=== PATIENT | female | born 1960 | race Caucasian/White ===

== ENCOUNTER 2018-06-21 21:23 | Emergency (ER) | payer OTHER ==
--- OUTSIDE RECORDS SUMMARY | 2018-06-21 21:25 | XMS REPORT ---
:1960 [facility] Address [address] [place] [address] [address]. [address] [place] [address] Care Team Providers Name Role Phone Unavailable Unavailable Unavailable Problems This patient has no known problems. Allergies, Adverse Reactions, Alerts This patient has no known allergies or adverse reactions. Medications This patient has no known medications.
[2018-06-21 22:32] LABS: Absolute Lymphocytes (CBC) 2.9 K/uL (0.7-4.9); Absolute Monocytes 0.5 K/uL (0.1-1.3); Absolute Neutrophil 2.4 K/uL (1.8-8.0); Basophils % 0.9 % (0-1.3); Eosinophils % 4.7 % (0-4.4); Hematocrit 33.5 % (36.0-45.0); Lymphocytes % 47.9 % (15.3-44.8); MPV 8.4 fL (7.6-11.3); Monocytes % 7.6 % (3.3-12.3)
[2018-06-21 22:35] LABS: Protime INR 0.91
[2018-06-21 22:47] LABS: ALT/SGPT 18 U/L (12-78); AST/SGOT 14 U/L (15-37); Albumin 4.1 g/dL (3.4-5.0); Alkaline Phosphatase 65 U/L (45-117); BUN Blood Urea Nitrogen 16 mg/dL (7-18); Bicarbonate 25 mmol/L (21-32); Bilirubin Direct < 0.1 mg/dL (0-0.2); Bilirubin Total 0.2 mg/dL (0.2-1.0); Glucose Level 97 mg/dL (74-106); Lipase 233 U/L (73-393); Magnesium 2.2 mg/dL (1.8-2.4); NT PRO-BNP 188 pg/mL (<125); Potassium 3.4 mmol/L (3.5-5.1); Protein, Total 7.2 g/dL (6.4-8.2); Sodium Level 144 mmol/L (136-145); Troponin (Emerg Dept Use Only) < 0.02 ng/mL (0.0-0.045)
[2018-06-21] MEDS ORDERED: MORPHINE 2 MG/ML SYR ONE (23:10)
[2018-06-21] MEDS ORDERED: ONDANSETRON 4 MG/2 ML VIAL ONE (23:10)
[2018-06-21 23:51] LABS: Urine Blood TRACE (NEG); Urine Glucose NEGATIVE (NEG); Urine Protein NEGATIVE (NEG); Urine Specific Gravity 1.015 (1.005-1.030)
[2018-06-22] MEDS ORDERED: FENTANYL CITR 100 MCG/2 ML ONE (01:40)
--- NOTE | 2018-06-22 02:13 | ER ---
Nurse's Notes [facility] Name: Orly Henderson Age: 58 yrs Sex: Female : 1960 Arrival Date: 06/21/2018 Time: 21:29 Bed 28 Private MD: Joe Cummings R Diagnosis: Headache;Lower abdominal pain, unspecified Presentation: 06/21 21:45 Presenting complaint: Patient states: RLQ pain, with N/V/D since today. C/o headache ca1 with dizziness and blurring of vision since this morning. Transition of care: patient was not received from another setting of care. Onset of symptoms was June 21, 2018. Risk Assessment: Do you want to hurt yourself or someone else? Patient reports no desire to harm self or others. Initial Sepsis Screen: Does the patient meet any 2 criteria? No. Patient's initial sepsis screen is negative. Does the patient have a suspected source of infection? No. Patient's initial sepsis screen is negative. 21:45 Method Of Arrival: Wheelchair ca1 21:45 Acuity: ANDREINA 3 ca1 21:45 Care prior to arrival: None. ca1 Triage Assessment: 22:17 General: Appears in no apparent distress. unkempt, Behavior is calm, cooperative, ca1 appropriate for age. Pain: Complains of pain in abdomen. GI: Abdomen is flat, non-distended, Bowel sounds present X 4 quads. Abd is soft X 4 quads Abdomen is tender to palpation in right lower quadrant and left lower quadrant Reports diarrhea, nausea, vomiting. Historical: - Allergies: 22:17 Bioxan; ca1 22:17 Flagyl; ca1 22:17 Benadryl IV; ca1 - Home Meds: 22:17 venlafaxine 150 mg oral cp24 1 cap once daily [Active]; pantoprazole 40 mg oral TbEC 1 ca1 tab once daily [Active]; buspirone 15 mg oral tab .5 tab 2 times per day [Active]; topiramate 25 mg oral cpSP 2 caps 2 times per day [Active]; meloxicam 7.5 mg oral tab 1 tab once daily [Active]; tizanidine 4 mg oral cap 1 cap daily [Active]; rosuvastatin 5 mg oral tab 1 tab once daily [Active]; sucralfate 1 gram Oral tab 1 tab 4 times per day [Active]; alendronate 70 mg oral tab 1 tab once wkly [Active]; Vitamin D3 1,000 unit oral cap [Active]; - PMHx: 22:17 Bipolar disorder; Fibromyalgia; Osteoporosis; Mitral Prolapse; High Cholesterol; ca1 Hernia; Arthritis; Ulcers; - PSHx: 22:17 Tonsillectomy; Cholecystectomy; Hysterectomy; Appendectomy; R shoulder surgery; ca1 - Immunization history:: Flu vaccine is not up to date. - Social history:: Smoking status: Patient uses tobacco products, smokes one-half pack cigarettes per day. - Ebola Screening: : No symptoms or risks identified at this time. Screenin:20 Abuse screen: Denies threats or abuse. Denies injuries from another. Nutritional ca1 screening: No deficits noted. Tuberculosis screening: No symptoms or risk factors identified. Fall Risk None identified. Assessment: 22:20 General: Appears in no apparent distress. unkempt, Behavior is calm, cooperative, ca1 appropriate for age. Pain: Complains of pain in left lower quadrant and right lower quadrant and abdomen Pain does not radiate. Pain currently is 7 out of 10 on a pain scale. Pain began this morning. Neuro: Level of Consciousness is awake, alert, obeys commands, Oriented to person, place, time, situation, Reports blurred vision dizziness, since this morning headache. Cardiovascular: Heart tones S1 S2 present Capillary refill < 3 seconds Patient's skin is warm and dry. Respiratory: Airway is patent Respiratory effort is even, unlabored, Respiratory pattern is regular, symmetrical, Breath sounds are clear bilaterally. GI: Abdomen is flat, non-distended, Bowel sounds present X 4 quads. Abd is soft X 4 quads Abdomen is tender to palpation in left lower quadrant and right lower quadrant. : No deficits noted. No signs and/or symptoms were reported regarding the genitourinary system. EENT: No deficits noted. No signs and/or symptoms were reported regarding the EENT system. Derm: Skin is healthy with good turgor, Skin is pink, warm \T\ dry. Musculoskeletal: Circulation, motion, and sensation intact. Capillary refill < 3 seconds. 23:38 Reassessment: Pt still at CT scan. ca1 06/22 02:27 Reassessment: Patient denies pain at this time. Patient states feeling better. mg2 Vital Signs: 06/21 22:17 BP 126 / 65; Pulse 69; Resp 19; Temp 98.3; Pulse Ox 99% on R/A; Weight 73.48 kg; Height ca1 5 ft. 7 in. (170.18 cm); Pain 7/10; 04 01:00 BP 107 / 66; Pulse 64; Resp 18; Pulse Ox 98% on R/A; mg2 02:18 BP 119 / 79; Pulse 69; Resp 18; Pulse Ox 100% on R/A; Pain 0/10; mg2 04/ 22:17 Body Mass Index 25.37 (73.48 kg, 170.18 cm) ca1 ED Course: 06/21 21:29 Patient arrived in ED. es 21:30 Joe Cummings MD is Private Physician. es 21:39 Moe Bowman PA is PHCP. jmm 21:39 Kalyan Sanchez MD is Attending Physician. jmm 21:49 Gardenia Olea, FARIBA is Primary Nurse. ca1 22:05 Triage completed. ca1 22:[address] via wheelchair. nj 22:17 Arm band placed on right wrist. ca1 22:19 Initial lab(s) drawn, by me, sent to lab. Inserted saline lock: 20 gauge in left lt1 antecubital area, using aseptic technique. 22:20 No provider procedures requiring assistance completed. ca1 22:20 Patient has correct armband on for positive identification. Placed in gown. Bed in low ca1 position. Call light in reach. Side rails up X 1. monitor and storage bin tender on. Pulse ox on. NIBP on. 22:29 CT completed. Patient moved back from CT. 2 22:31 CT Head Brain wo Cont In Process Unspecified. EDMS 04 00:[address] In Process Unspecified. EDMS 00:19 CT Neck Angio In Process Unspecified. EDMS 00:20 CT Abd/Pelvis - W/Contrast In Process Unspecified. EDMS 02:13 Gilbert Garcia MD is Referral Physician. [facility] 02:28 IV discontinued, intact, bleeding controlled, No redness/swelling at site. Pressure mg2 dressing applied. Administered Medications: 06/21 22:58 Drug: Zofran 4 mg Route: IVP; Site: left antecubital; ca1 06/22 01:22 Follow up: Response: No adverse reaction; Marked relief of symptoms mg2 06/21 23:00 Drug: morphine 2 mg Route: IVP; Site: left antecubital; ca1 06/22 01:22 Follow up: Response: No adverse reaction; Marked relief of symptoms mg2 01:33 Drug: fentaNYL (PF) 25 mcg Route: IVP; Site: left antecubital; mg2 02:15 Follow up: Response: No adverse reaction; Marked relief of symptoms mg2 Outcome: 02:13 Discharge ordered by . joaquín 02:28 Discharged to home ambulatory, with family. mg2 02:28 Condition: stable 02:28 Discharge instructions given to patient, family, Instructed on discharge instructions, follow up and referral plans. Demonstrated understanding of instructions, follow-up care. 02:29 Patient left the ED. mg2 Signatures: Dispatcher [employer] EDMoe Lew PA PA jmm Salyer, Robin Duran [facility] Gio Valderrama RN RN mg2 Gardenia Olea RN RN ca1 Darby Gallegos 1
--- NOTE | 2018-06-22 02:13 | EDPHYS ---
Physician Documentation [facility] Name: Orly Henderson Age: 58 yrs Sex: Female : 1960 Arrival Date: 06/21/2018 Time: 21:29 Bed 28 Private MD: Joe Cummings R ED Physician Kalyan Sanchez HPI: 06/21 22:00 This 58 yrs old Unknown Female presents to ER via Wheelchair with complaints of jmm Dizziness, Nausea, Abdominal Pain, Headache, Flank Pain. 22:00 The patient presents with lightheadedness. Onset: The symptoms/episode began/occurred jmm gradually, at 18:00. This is a 58 year old female with a history of bipolar disorder, fibromyalgia that presents to the ED with complaints of lower abdominal and left flank pain beginning this morning. Patient states she has a history of IBS which presents similarly. Patient also complains of gradual onset headache beginning this evening at 6 pm with complaints of bilateral blurred vision. patient states she has a history of migraine headaches which she takes topamax for. Patient states symptoms are similar to previous migraines. . Historical: - Allergies: 22:17 Bioxan; ca1 22:17 Flagyl; ca1 22:17 Benadryl IV; ca1 - Home Meds: 22:17 venlafaxine 150 mg oral cp24 1 cap once daily [Active]; pantoprazole 40 mg oral TbEC 1 ca1 tab once daily [Active]; buspirone 15 mg oral tab .5 tab 2 times per day [Active]; topiramate 25 mg oral cpSP 2 caps 2 times per day [Active]; meloxicam 7.5 mg oral tab 1 tab once daily [Active]; tizanidine 4 mg oral cap 1 cap daily [Active]; rosuvastatin 5 mg oral tab 1 tab once daily [Active]; sucralfate 1 gram Oral tab 1 tab 4 times per day [Active]; alendronate 70 mg oral tab 1 tab once wkly [Active]; Vitamin D3 1,000 unit oral cap [Active]; - PMHx: 22:17 Bipolar disorder; Fibromyalgia; Osteoporosis; Mitral Prolapse; High Cholesterol; ca1 Hernia; Arthritis; Ulcers; - PSHx: 22:17 Tonsillectomy; Cholecystectomy; Hysterectomy; Appendectomy; R shoulder surgery; ca1 - Immunization history:: Flu vaccine is not up to date. - Social history:: Smoking status: Patient uses tobacco products, smokes one-half pack cigarettes per day. - Ebola Screening: : No symptoms or risks identified at this time. ROS: 22:17 Constitutional: Negative for fever, chills, and weight loss, Cardiovascular: Negative jmm for chest pain, palpitations, and edema, Respiratory: Negative for shortness of breath, cough, wheezing, and pleuritic chest pain. 22:17 Abdomen/GI: Positive for abdominal pain. 22:17 Neuro: Positive for headache, visual changes. 22:17 All other systems are negative. Exam: 22:17 Constitutional: This is a well developed, well nourished patient who is awake, alert, jmm and in no acute distress. Head/Face: atraumatic. Eyes: EOMI, no conjunctival erythema appreciated ENT: Moist Mucus Membranes Neck: Trachea midline, Supple Chest/axilla: Normal chest wall appearance and motion. Cardiovascular: Regular rate and rhythm. No edema appreciated Respiratory: Normal respirations, no respiratory distress appreciated 22:17 Back: Normal ROM Skin: General appearance color normal MS/ Extremity: Moves all extremities, no obvious deformities appreciated, no edema noted to the lower extremities 22:17 Abdomen/GI: Inspection: abdomen appears normal, Bowel sounds: normal, Palpation: soft, mild abdominal tenderness, in the right lower quadrant and left lower quadrant. 22:17 Neuro: Orientation: is normal, Mentation: is normal, Memory: is normal, Cerebellar function: normal finger to nose testing, Motor: is normal. 22:17 Psych: Behavior/mood is pleasant, cooperative, anxious. Vital Signs: 22:17 BP 126 / 65; Pulse 69; Resp 19; Temp 98.3; Pulse Ox 99% on R/A; Weight 73.48 kg; Height ca1 5 ft. 7 in. (170.18 cm); Pain 7/10; 04 01:00 BP 107 / 66; Pulse 64; Resp 18; Pulse Ox 98% on R/A; mg2 02:18 BP 119 / 79; Pulse 69; Resp 18; Pulse Ox 100% on R/A; Pain 0/10; mg2 04 22:17 Body Mass Index 25.37 (73.48 kg, 170.18 cm) ca1 MDM: 06/21 22:00 Patient medically screened. [facility] 06/22 02:11 Data reviewed: vital signs, nurses notes. Counseling: I had a detailed discussion with vale the patient and/or guardian regarding: the historical points, exam findings, and any diagnostic results supporting the discharge/admit diagnosis, radiology results, the need for outpatient follow up, to return to the emergency department if symptoms worsen or persist or if there are any questions or concerns that arise at home. ED course: Patient's symptoms are alleviated in the ED. Repeat neuro exam normal. I discussed CTA findings with Dr. Garcia whom will follow up with patient. Patient is otherwise given strict return precautions. Patient understood and agrees with the plan of care. . 06/21 22:01 Order name: Basic Metabolic Panel; Complete Time: 22:50 [facility] 06/21 22:01 Order name: CBC with Diff; Complete Time: 22:34 [facility] 06/21 22:01 Order name: LFT's; Complete Time: 22:50 [facility] 06/21 22:01 Order name: Magnesium; Complete Time: 22:50 [facility] 06/21 22:01 Order name: NT PRO-BNP; Complete Time: 22:50 [facility] 06/21 22:01 Order name: PT-INR; Complete Time: 22:50 [facility] 06/21 22:01 Order name: Troponin (emerg Dept Use Only); Complete Time: 22:50 [facility] 06/21 22:01 Order name: Lipase; Complete Time: 22:50 [facility] 06/21 22:01 Order name: CT Head Brain wo Cont [facility] 06/21 22:52 Order name: Head Angio CT [facility] 06/21 22:52 Order name: CT Neck Angio [facility] 06/21 22:52 Order name: CT Abd/Pelvis - W/Contrast [facility] 06/21 23:39 Order name: Urine Dipstick--Ancillary (enter results); Complete Time: 23:52 ok 06/21 22:01 Order name: EKG; Complete Time: 22:03 [facility] 06/21 22:01 Order name: Cardiac monitoring; Complete Time: 22:27 [facility] 06/21 22:01 Order name: EKG - Nurse/Tech; Complete Time: 22:39 [facility] 06/21 22:01 Order name: IV Saline Lock; Complete Time: 22:20 [facility] 06/21 22:01 Order name: Labs collected and sent; Complete Time: 22:20 [facility] 06/21 22:01 Order name: O2 Per Protocol; Complete Time: 22:27 [facility] 06/21 22:01 Order name: O2 Sat Monitoring; Complete Time: 22:27 [facility] Administered Medications: 06/21 22:58 Drug: Zofran 4 mg Route: IVP; Site: left antecubital; ca1 06/22 01:22 Follow up: Response: No adverse reaction; Marked relief of symptoms mg2 06/21 23:00 Drug: morphine 2 mg Route: IVP; Site: left antecubital; ca1 06/22 01:22 Follow up: Response: No adverse reaction; Marked relief of symptoms mg2 01:33 Drug: fentaNYL (PF) 25 mcg Route: IVP; Site: left antecubital; mg2 02:15 Follow up: Response: No adverse reaction; Marked relief of symptoms mg2 Disposition: 06/22/18 02:13 Discharged to Home. Impression: Headache, Lower abdominal pain, unspecified. - Condition is Stable. - Discharge Instructions: Abdominal Pain, Adult, General Headache Without Cause. - Medication Reconciliation Form, Thank You Letter, Antibiotic Education, Prescription Opioid Use form. - Follow up: Gilbert Garcia MD; When: 2 - 3 days; Reason: Recheck today's complaints, Continuance of care, Re-evaluation by your physician. Addendum: 06/23/2018 07:22 Co-signature as Attending Physician, Kalyan Sanchez MD I agree with the assessment and t w4 plan of care. Signatures: Dispatcher [employer] EDMS Moe Bowman PA PA [facility] Kalyan Sanchez MD MD tw4 Gio Valderrama RN RN mg2 Gardenia Olea RN RN ca1 Corrections: (The following items were deleted from the chart) 06/22 02:29 02:13 06/22/2018 02:13 Discharged to Home. Impression: Headache; Lower abdominal pain, mg2 unspecified. Condition is Stable. Forms are Medication Reconciliation Form, Thank You Letter, Antibiotic Education, Prescription Opioid Use. Follow up: Gilbert Garcia; When: 2 - 3 days; Reason: Recheck today's complaints, Continuance of care, Re-evaluation by your physician. [facility]
--- NOTE | 2018-06-22 11:23 | RAD REPORT ---
EXAM DESCRIPTION: CT - Neck Angio - 06/22/2018 12:17 am CLINICAL HISTORY: The patient is 58 years old and is Female; headache, blurred vision TECHNIQUE: Axial computed tomography images of the head and neck with intravenous contrast during th e arterial phase of contrast enhancement. Sagittal and coronal reformatted images were created and reviewed. This CT exam was performed using one or more of the following dose reduction techniques: automated exposure control, adjustment of the mA and/or kV according to patient size, and/or use of iterative reconstruction technique. COMPARISON: CT head without contrast of the same day. FINDINGS: Limited evaluation due to venous contamination. HEAD: ANTERIOR CEREBRAL ARTERY: Hypoplastic left A1 segment with suggested azygous A2. Right laterally o riented 2 mm outpouching of the A1 A2 junction (series 405, image 66). Additional leftward 2.2 mm outpouching at the A2 A2 junction (series 405, image 65). No occlusion or significant stenosis. RIGHT MIDDLE CEREBRAL ARTERY: Unremarkable. No occlusion or significant stenosis. No aneurysm. RIGHT POSTERIOR CEREBRAL ARTERY: Unremarkable. No occlusion or significant stenosis. No aneury sm. LEFT MIDDLE CEREBRAL ARTERY: Unremarkable. No occlusion or significant stenosis. No aneurysm. LEFT POSTERIOR CEREBRAL ARTERY: Unremarkable. No occlusion or significant stenosis. No aneurys m. BASILAR ARTERY: Unremarkable. No occlusion or significant stenosis. No aneurysm. BRAIN: Opacified dural venous sinuses are patent. NECK: RIGHT COMMON CAROTID ARTERY: Unremarkable. No significant stenosis. No dissection or occlusion . RIGHT INTERNAL CAROTID ARTERY: Unremarkable. No significant stenosis. No dissection or occlusi on. RIGHT EXTERNAL CAROTID ARTERY: Unremarkable. No occlusion. RIGHT VERTEBRAL ARTERY: Unremarkable. No significant stenosis. No dissection or occlusion. LEFT COMMON CAROTID ARTERY: Unremarkable. No significant stenosis. No dissection or occlusion. LEFT INTERNAL CAROTID ARTERY: Unremarkable. No significant stenosis. No dissection or occlusio n. LEFT EXTERNAL CAROTID ARTERY: Unremarkable. No occlusion. LEFT VERTEBRAL ARTERY: Unremarkable. No significant stenosis. No dissection or occlusion. THYROID: Visualized thyroid is within normal limits. PLEURAL SPACE: Apical pleural thickening and chronic lung changes. MEDIASTINUM: Mild thickening of the visualized esophagus. HEAD and NECK: BONES/JOINTS: No acute fracture. No dislocation. SOFT TISSUES: Cervical soft tissues demonstrate no gross abnormality. No mass. OTHER FINDINGS: Suggested peripherally calcified pineal cyst. CAROTID STENOSIS REFERENCE USING NASCET CRITERIA: % ICA stenosis = (1 - narrowest ICA diameter/diameter of distal cervical ICA) x 100. Mild - Moderate - 50-69% stenosis. Severe - 70-94% stenosis. Near occlusion - 95-99% stenosis. Occluded - 100% stenosis. IMPRESSION: Limited evaluation as detailed above. 1. No large intracranial vessel occlusion. 2. No hemodynamically significant cervical ICA stenosis. 3. 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 Electronically signed by: Jose Hurt DO 06/22/2018 12:46 AM CDT Due to temporary technical issues with the PACS/Fluency reporting system, reports are being signed by the in house radiologist as a courtesy to ensure prompt reporting. The interpreting radiologist is f ully responsible for the content of the report.
--- NOTE | 2018-06-22 11:24 | RAD REPORT ---
EXAM DESCRIPTION: CT - Abdomen Pelvis W Contrast - 06/22/2018 5:18 am CLINICAL HISTORY: The patient is 58 years old and is Female; lower abdominal pain, IV ONLY TECHNIQUE: Axial computed tomography images of the abdomen and pelvis with intravenous contrast. S agittal and coronal reformatted images were created and reviewed. This CT exam was performed using one or more of the following dose reduction techniques: automated exposure control, adjustment of t he mA and/or kV according to patient size, and/or use of iterative reconstruction technique. COMPARISON: None. FINDINGS: LUNG BASES: Unremarkable. No mass. No consolidation. ABDOMEN: LIVER: Unremarkable. No mass. GALLBLADDER AND BILE DUCTS: Prior cholecystectomy with mild intrahepatic ductal dilatation. Prominence of the common bile duct. PANCREAS: Unremarkable. No mass. No ductal dilation. SPLEEN: Unremarkable. No splenomegaly. ADRENALS: Unremarkable. No mass. KIDNEYS AND URETERS: 1.4 cm left renal cyst. No hydronephrosis. STOMACH AND BOWEL: Small bowel containing inguinal hernia. PELVIS: APPENDIX: No findings to suggest acute appendicitis. BLADDER: Bladder is decompressed. Moderate stool burden. REPRODUCTIVE: Prior hysterectomy ABDOMEN and PELVIS: INTRAPERITONEAL SPACE: Unremarkable. No free air. No significant fluid collection. BONES/JOINTS: Chronic fracture deformity of the superior endplate of T11 with associated superior endplate sclerosis and mild retropulsion of the posterior-superior corner resulting in mild canal henry nosis. Diffuse osteopenia. No dislocation. SOFT TISSUES: See above. VASCULATURE: Atherosclerotic calcifications of the abdominal aorta and iliac vasculature. No abdominal aortic aneurysm. LYMPH NODES: Unremarkable. No enlarged lymph nodes. IMPRESSION: 1. No acute abdominal or pelvic abnormality. 2. Chronic fracture deformity of the superior endplate of T11 with associated superior endplate scl erosis and mild retropulsion of the posterior-superior corner resulting in mild canal stenosis. 3. Small bowel containing inguinal hernia. No obstruction. 4. Diffuse osteopenia. 5. Prior cholecystectomy with intra and extrahepatic ductal dilatation. 6. 1.7 cm left renal cyst. Electronically signed by: Jose Hurt DO 06/22/2018 12:36 AM CDT Due to temporary technical issues with the PACS/Fluency reporting system, reports are being signed by the in house radiologist as a courtesy to ensure prompt reporting. The interpreting radiologist is f ully responsible for the content of the report.
--- NOTE | 2018-06-22 11:48 | RAD REPORT ---
EXAM DESCRIPTION: CT - Head Brain Wo Cont - 06/21/2018 10:47 pm CLINICAL HISTORY: 58 years Female DIZZINESS TECHNIQUE: Contiguous axial CT images obtained through the brain without IV contrast. This CT exam was performed according to our departmental dose-optimization program, which includes on e or more of the following dose reduction techniques: automated exposure control, adjustment of the m A and/or kV according to patient size, and/or use of iterative reconstruction technique. COMPARISON: No prior exams provided for comparison. FINDINGS: There is no intracranial hemorrhage, extraaxial collection, or acute transcortical infarct ion. The ventricles are normal in size and contour without mass-effect or midline shift. Osseous structure s are normal. The paranasal sinuses and mastoid air cells are clear. IMPRESSION: No acute intracranial abnormalities. Electronically signed by: Sharmin Buck MD 06/21/2018 10:36 PM CDT Due to temporary technical issues with the PACS/Fluency reporting system, reports are being signed by the in house radiologist as a courtesy to ensure prompt reporting. The interpreting radiologist is f ully responsible for the content of the report.
== END 2018-06-22 02:29 | disposition home or self-care (01) ==
LOC: ER 21:23
DX: R10.30 Lower abdominal pain, unspecified (principal); F17.210 Nicotine dependence, cigarettes, uncomplicated; F31.9 Bipolar disorder, unspecified; E78.00 Pure hypercholesterolemia, unspecified; Z88.8 Allergy status to other drugs, medicaments and biological substances
CPT/HCPCS: 93005; 85025; 80048; 36415; 83735; 85610; 80076; 81003; 84484; 83690; 83880; 70450; 70496; 70498; 74177; 96375; 96374; 99285; Q9967 ×2; J3010; J2270; J2405

== ENCOUNTER 2018-06-29 03:09 | Emergency (ER) | payer OTHER ==
--- OUTSIDE RECORDS SUMMARY | 2018-06-29 03:11 | XMS REPORT ---
:1960 [facility] Address [address] [place] [address] [address]. [address] [place] [address] Care Team Providers Name Role Phone Unavailable Unavailable Unavailable Problems This patient has no known problems. Allergies, Adverse Reactions, Alerts This patient has no known allergies or adverse reactions. Medications This patient has no known medications.
[2018-06-29] MEDS ORDERED: HYDROCODONE/APAP 5/325 MG TAB ONE (04:58)
--- NOTE | 2018-06-29 05:45 | ER ---
Nurse's Notes [facility] Name: Orly Henderson Age: 58 yrs Sex: Female : 1960 Arrival Date: 06/29/2018 Time: 03:10 Bed 5 Private MD: Joe Cummings R Diagnosis: Cerebral aneurysm, nonruptured;Headache Presentation: 06/29 03:23 Presenting complaint: Patient states: pressure behind her eyes, light sensitivity, ak1 dizziness, pain "all the time" since 06/21/18 when her brain aneurysm was found. Transition of care: patient was not received from another setting of care. Onset of symptoms was June 21, 2018. Risk Assessment: Do you want to hurt yourself or someone else? Patient reports no desire to harm self or others. Care prior to arrival: None. 03:23 Acuity: ANDREINA 3 ak1 03:23 Method Of Arrival: Wheelchair ak1 04:01 Initial Sepsis Screen: Does the patient meet any 2 criteria? No. Patient's initial ea sepsis screen is negative. Does the patient have a suspected source of infection? No. Patient's initial sepsis screen is negative. Triage Assessment: 03:28 Headache History: The patient has had previous headaches and this one is similar to ak1 previous episodes. General: Appears in no apparent distress. Behavior is cooperative, anxious, crying. Pain: Complains of pain in headache. Pain: Pain currently is 10 out of 10 on a pain scale. Pain began since 06/21/18 Also complains of photophobia. EENT: No signs and/or symptoms were reported regarding the EENT system. Neuro: Level of Consciousness is awake, alert, obeys commands, Oriented to person, place, time, situation, Appropriate for age [employer] Compliance Manager are equal bilaterally Moves all extremities. Gait is shuffling, pt c/o dizziness. Speech is normal, Facial symmetry appears normal. Historical: - Allergies: 03:28 Benadryl IV; ak1 03:28 Bioxan; ak1 03:28 Flagyl; ak1 - Home Meds: 03:28 venlafaxine 150 mg Oral cp24 1 cap once daily [Active]; pantoprazole 40 mg Oral TbEC 1 ak1 tab once daily [Active]; buspirone 15 mg Oral tab 0.5 tab 2 times per day [Active]; topiramate 25 mg Oral cpSP 2 caps 2 times per day [Active]; meloxicam 7.5 mg Oral tab 1 tab once daily [Active]; tizanidine 4 mg Oral cap 1 cap daily [Active]; rosuvastatin 5 mg Oral tab 1 tab once daily [Active]; sucralfate 1 gram Oral tab 1 tab 4 times per day [Active]; alendronate 70 mg Oral tab 1 tab once wkly [Active]; Vitamin D3 1,000 unit Oral cap [Active]; - PMHx: 03:28 Arthritis; Bipolar disorder; Fibromyalgia; Hernia; High Cholesterol; Mitral Prolapse; ak1 Osteoporosis; Ulcers; - PSHx: 03:28 L shoulder surgery; R shoulder surgery; Tonsillectomy; Cholecystectomy; Hysterectomy; ak1 - Immunization history:: Adult Immunizations unknown. - Social history:: Smoking status: Patient uses tobacco products, smokes one-half pack cigarettes per day. - Ebola Screening: : No symptoms or risks identified at this time. Screenin:31 Abuse screen: Denies threats or abuse. Denies injuries from another. Nutritional ak1 screening: No deficits noted. Tuberculosis screening: No symptoms or risk factors identified. Fall Risk None identified. Assessment: 03:50 General: Behavior is calm. Pain: Complains of pain in occipital area, base of the skull ea and neck Pain currently is 10 out of 10 on a pain scale. Quality of pain is described as shooting. Neuro: Level of Consciousness is awake, alert, obeys commands, Oriented to person, place, time, situation, Reports light sensitivity. Cardiovascular: Patient's skin is warm and dry. Respiratory: Airway is patent Respiratory effort is even, unlabored, Respiratory pattern is regular, symmetrical. GI: Abdomen is non-distended. Derm: Skin is pink, warm \\T\\ dry. Musculoskeletal: Circulation, motion, and sensation intact. 04:41 Reassessment: Patient and/or family updated on plan of care and expected duration. Pain ea level reassessed. Patient is alert, oriented x 3, equal unlabored respirations, skin warm/dry/pink. Pt taken to CT. 04:47 Reassessment: Patient is alert, oriented x 3, equal unlabored respirations, skin ea warm/dry/pink. Returned from CT. Pt complaining of headache, provider notified, medication administered, pt tolerated well. 05:00 Reassessment: Patient and/or family updated on plan of care and expected duration. Pain ea level reassessed. Patient is alert, oriented x 3, equal unlabored respirations, skin warm/dry/pink. Awaiting on CT results. 06:00 Reassessment: Patient and/or family updated on plan of care and expected duration. Pain ea level reassessed. Patient is alert, oriented x 3, equal unlabored respirations, skin warm/dry/pink. 06:20 Reassessment: Report called to Debbie LINK at [facility]. ea 06:44 Reassessment: Patient and/or family updated on plan of care and expected duration. Pain ea level reassessed. Patient is alert, oriented x 3, equal unlabored respirations, skin warm/dry/pink. Report given to [facility], Pt transferred to [place] via stretcher, per EMS. Pt tolerating well. Vital Signs: 03:23 BP 149 / 95; Pulse 81; Resp 16; Temp 98.2; Pulse Ox 100% on R/A; Weight 73.03 kg (R); ak1 Height 5 ft. 7 in. (170.18 cm) (R); Pain 10/10; 04:50 BP 120 / 82; Pulse 65; Resp 18; Pulse Ox 100% ; ea 05:30 BP 130 / 88; Pulse 67; Resp 18; Pulse Ox 99% ; ea 06:13 BP 135 / 75; Pulse 68; Resp 18; Pulse Ox 99% on R/A; ea 06:48 BP 132 / 79; Pulse 70; Resp 18; Temp 97.8(TE); Pulse Ox 98% on R/A; ea 03:23 Body Mass Index 25.22 (73.03 kg, 170.18 cm) ak1 ED Course: 03:10 Patient arrived in ED. am2 03:10 Joe Cummings MD is Private Physician. am2 03:25 Triage completed. ak1 03:25 Warren Moss MD is Attending Physician. gs 03:28 Arm band placed on Patient placed in an exam room, on a stretcher, Patient notified of ak1 wait time. 03:30 Patient has correct armband on for positive identification. Bed in low position. Call ak1 light in reach. Side rails up X 1. Side rails up X2. Adult w/ patient. Pulse ox on. NIBP on. 03:49 Myra Cruz, RN is Primary Nurse. ea 04:54 CT Head Brain wo Cont In Process Unspecified. EDMS 06:12 Inserted saline lock: 22 gauge in right antecubital area, using aseptic technique. ea 06:29 No provider procedures requiring assistance completed. Patient transferred, IV remains ea in place. Administered Medications: 04:45 Drug: Shandaken 5 mg-325 mg 1 tabs Route: PO; ea 06:00 Follow up: Response: No adverse reaction; Pain is decreased ea 06:11 Drug: Zofran 4 mg Route: IVP; Site: right antecubital; ea 06:49 Follow up: Response: No adverse reaction; Nausea is decreased ea Outcome: 05:45 ER care complete, transfer ordered by . gs 06:00 Instructed on the need for transfer, Demonstrated understanding of instructions. ea 06:43 Transferred by ground EMS to [facility], Transfer form completed. ea 06:43 Condition: stable 06:50 Patient left the ED. ea Signatures: Dispatcher [employer] EDMS Davida Winters RN RN Leonor Benítez am2 Myra Cruz RN RN ea Starr, Gregory, MD MD Corrections: (The following items were deleted from the chart) 06:12 06:12 Inserted saline lock: 20 gauge in right antecubital area, using aseptic ea technique. ea
--- NOTE | 2018-06-29 05:45 | EDPHYS ---
Physician Documentation [facility] Name: Orly Henderson Age: 58 yrs Sex: Female : 1960 Arrival Date: 06/29/2018 Time: 03:10 Bed 5 Private MD: Joe Cummings R ED Physician Warren Moss HPI: 06/29 05:33 This 58 yrs old Unknown Female presents to ER via Wheelchair with complaints of gs Headache, light sensitivity, Dizziness. 05:33 The patient describes the headache as throbbing. Onset: The symptoms/episode gs began/occurred gradually. Associated signs and symptoms: Pertinent positives: nausea. Severity of symptoms: At its worst the pain was severe, in the emergency department the pain is unchanged. The patient has experienced similar episodes in the past. 05:42 Associated signs and symptoms: Pertinent positives: dizziness. The symptoms are gs alleviated by nothing. the symptoms are aggravated by nothing. The patient has been recently seen at the [facility] Emergency Department, last week. Historical: - Allergies: 03:28 Benadryl IV; ak1 03:28 Bioxan; ak1 03:28 Flagyl; ak1 - Home Meds: 03:28 venlafaxine 150 mg Oral cp24 1 cap once daily [Active]; pantoprazole 40 mg Oral TbEC 1 ak1 tab once daily [Active]; buspirone 15 mg Oral tab 0.5 tab 2 times per day [Active]; topiramate 25 mg Oral cpSP 2 caps 2 times per day [Active]; meloxicam 7.5 mg Oral tab 1 tab once daily [Active]; tizanidine 4 mg Oral cap 1 cap daily [Active]; rosuvastatin 5 mg Oral tab 1 tab once daily [Active]; sucralfate 1 gram Oral tab 1 tab 4 times per day [Active]; alendronate 70 mg Oral tab 1 tab once wkly [Active]; Vitamin D3 1,000 unit Oral cap [Active]; - PMHx: 03:28 Arthritis; Bipolar disorder; Fibromyalgia; Hernia; High Cholesterol; Mitral Prolapse; ak1 Osteoporosis; Ulcers; - PSHx: 03:28 L shoulder surgery; R shoulder surgery; Tonsillectomy; Cholecystectomy; Hysterectomy; ak1 - Immunization history:: Adult Immunizations unknown. - Social history:: Smoking status: Patient uses tobacco products, smokes one-half pack cigarettes per day. - Ebola Screening: : No symptoms or risks identified at this time. ROS: 05:42 All other systems are negative. gs Exam: 05:42 Head/Face: Normocephalic, atraumatic. Eyes: Pupils equal round and reactive to light, gs extra-ocular motions intact. Lids and lashes normal. Conjunctiva and sclera are non-icteric and not injected. Cornea within normal limits. Periorbital areas with no swelling, redness, or edema. ENT: Nares patent. No nasal discharge, no septal abnormalities noted. Tympanic membranes are normal and external auditory canals are clear. Oropharynx with no redness, swelling, or masses, exudates, or evidence of obstruction, uvula midline. Mucous membranes moist. Neck: Trachea midline, no thyromegaly or masses palpated, and no cervical lymphadenopathy. Supple, full range of motion without nuchal rigidity, or vertebral point tenderness. No Meningismus. Chest/axilla: Normal chest wall appearance and motion. Nontender with no deformity. No lesions are appreciated. Cardiovascular: Regular rate and rhythm with a normal S1 and S2. No gallops, murmurs, or rubs. Normal PMI, no JVD. No pulse deficits. Respiratory: Lungs have equal breath sounds bilaterally, clear to auscultation and percussion. No rales, rhonchi or wheezes noted. No increased work of breathing, no retractions or nasal flaring. Abdomen/GI: Soft, non-tender, with normal bowel sounds. No distension or tympany. No guarding or rebound. No evidence of tenderness throughout. Back: No spinal tenderness. No costovertebral tenderness. Full range of motion. Skin: Warm, dry with normal turgor. Normal color with no rashes, no lesions, and no evidence of cellulitis. MS/ Extremity: Pulses equal, no cyanosis. Neurovascular intact. Full, normal range of motion. Neuro: Awake and alert, GCS 15, oriented to person, place, time, and situation. Cranial nerves II-XII grossly intact. Motor strength 5/5 in all extremities. Sensory grossly intact. Cerebellar exam normal. Normal gait. 05:42 Constitutional: The patient appears alert, awake. 05:42 Constitutional: The patient appears uncomfortable. Vital Signs: 03:23 BP 149 / 95; Pulse 81; Resp 16; Temp 98.2; Pulse Ox 100% on R/A; Weight 73.03 kg (R); ak1 Height 5 ft. 7 in. (170.18 cm) (R); Pain 10/10; 04:50 BP 120 / 82; Pulse 65; Resp 18; Pulse Ox 100% ; ea 05:30 BP 130 / 88; Pulse 67; Resp 18; Pulse Ox 99% ; ea 06:13 BP 135 / 75; Pulse 68; Resp 18; Pulse Ox 99% on R/A; ea 06:48 BP 132 / 79; Pulse 70; Resp 18; Temp 97.8(TE); Pulse Ox 98% on R/A; ea 03:23 Body Mass Index 25.22 (73.03 kg, 170.18 cm) ak1 MDM: 03:35 Patient medically screened. gs 05:42 Differential diagnosis: subarachnoid bleed, tension headache, vasomotor headache. Data gs reviewed: vital signs, nurses notes. Response to treatment: the patient's symptoms have mildly improved after treatment, and as a result, I will xfer. 06/29 03:36 Order name: CT Head Brain wo Cont gs 06/29 05:46 Order name: IV Saline Lock; Complete Time: 06:10 Administered Medications: 04:45 Drug: Dunbar 5 mg-325 mg 1 tabs Route: PO; ea 06:00 Follow up: Response: No adverse reaction; Pain is decreased ea 06:11 Drug: Zofran 4 mg Route: IVP; Site: right antecubital; ea 06:49 Follow up: Response: No adverse reaction; Nausea is decreased ea Disposition: 06/29/18 05:45 Transfer ordered to [facility]. Diagnosis are Cerebral aneurysm, nonruptured, Headache. - Reason for transfer: Higher level of care. - Accepting physician is sangeeta. - Condition is Stable. - Problem is new. - Symptoms have improved. Signatures: Dispatcher [employer] EDDavida Patten RN RN ak1 Myra Cruz RN RN ea Starr, Gregory, MD MD Corrections: (The following items were deleted from the chart) 06:50 05:45 06/29/2018 05:45 Transfer ordered to [facility]. ea Diagnosis is Cerebral aneurysm, nonruptured; Headache. Reason for transfer: Higher level of care. Accepting physician is sangeeta. Condition is Stable. Problem is new. Symptoms have improved. gs
[2018-06-29] MEDS ORDERED: ONDANSETRON 4 MG/2 ML VIAL ONE (06:13)
--- NOTE | 2018-06-29 12:20 | RAD REPORT ---
EXAM DESCRIPTION: Head Brain Wo Cont CLINICAL HISTORY: PAIN COMPARISON: June 21, 2018. TECHNIQUE: CT HEAD WITHOUT IV CONTRAST on 06/29/2018 3:36 AM CDT This exam was performed according to our departmental dose-optimization program, which includes autom ated exposure control, adjustment of the mA and/or kV according to patient size and/or use of iterati ve reconstruction technique. FINDINGS: There is no acute hemorrhage, mass effect or midline shift. Tapia-white differentiation is preserved. There is no hydrocephalus. There is mild bifrontal cerebral atrophy. The calvarium is intact. Orbits and globes are unremarkable. The paranasal sinuses are clear. Mastoid air cells are clear. IMPRESSION: No acute intracranial findings. Electronically signed by: Fahad Zamarripa MD 06/29/2018 5:00 AM CDT Due to temporary technical issues with the PACS/Fluency reporting system, reports are being signed by the in house radiologist as a courtesy to ensure prompt reporting. The interpreting radiologist is f ully responsible for the content of the report.
== END 2018-06-29 06:50 | disposition short-term general hospital (02) ==
LOC: ER 03:09
DX: I67.1 Cerebral aneurysm, nonruptured (principal); R51 Headache; R42 Dizziness and giddiness; Z88.1 Allergy status to other antibiotic agents; F17.210 Nicotine dependence, cigarettes, uncomplicated; F31.9 Bipolar disorder, unspecified; E78.00 Pure hypercholesterolemia, unspecified; M79.7 Fibromyalgia
CPT/HCPCS: 70450; 96374; 99285; J2405

== ENCOUNTER 2019-01-21 01:04 | Emergency (ER) | payer OTHER ==
--- NOTE | 2019-01-21 01:30 | EDPHYS ---
Physician Documentation [facility] Name: Orly Henderson Age: 58 yrs Sex: Female : 1960 Arrival Date: 01/21/2019 Time: 01:07 Bed 14 Private MD: Joe Cummings R ED Physician Dariel Carson HPI: 01/21 01:34 This 58 yrs old Unknown Female presents to ER via Ambulatory with complaints of Arm snw swelling to elbow from flu shot. 01:34 Onset: The symptoms/episode began/occurred suddenly. Associated signs and symptoms: snw Pertinent positives: The patient does not have any pertinent positive signs or symptoms associated with pediatric illness. Modifying factors: The patient symptoms are alleviated by nothing, the patient symptoms are aggravated by movement, stimulation. The patient has not experienced similar symptoms in the past. The patient has been recently seen by a physician: the patient's primary care provider, earlier today. rec'd pneumonia shot in left delt/tricep area, flu shot in right delt/tricep area. 01:36 area to right upper extremity edematous, warm, tender. snw Historical: - Allergies: 01:13 Benadryl IV; jd3 01:13 Bioxan; jd3 01:13 Flagyl; jd3 - Home Meds: 01:13 tizanidine 4 mg Oral cap 1 cap daily [Active]; meloxicam 7.5 mg Oral tab 1 tab once jd3 daily [Active]; rosuvastatin 5 mg Oral tab 1 tab once daily [Active]; alendronate 70 mg Oral tab 1 tab once wkly [Active]; buspirone 15 mg Oral tab 0.5 tab 2 times per day [Active]; pantoprazole 40 mg Oral TbEC 1 tab once daily [Active]; venlafaxine 150 mg Oral cp24 1 cap once daily [Active]; sucralfate 1 gram Oral tab 1 tab 4 times per day [Active]; topiramate 25 mg Oral cpSP 2 caps 2 times per day [Active]; Vitamin D3 1,000 unit Oral cap [Active]; - PMHx: 01:13 Fibromyalgia; Osteoporosis; Mitral Prolapse; High Cholesterol; Hernia; Ulcers; Bipolar jd3 disorder; Arthritis; - PSHx: 01:13 R shoulder surgery; Tonsillectomy; L shoulder surgery; Cholecystectomy; Hysterectomy; jd3 - Immunization history:: Adult Immunizations up to date, Flu vaccine is up to date. - Social history:: Smoking status: Patient uses tobacco products, smokes one-half pack cigarettes per day. - Ebola Screening: : Patient negative for fever greater than or equal to 101.5 degrees Fahrenheit, and additional compatible Ebola Virus Disease symptoms. ROS: 01:34 Constitutional: Negative for fever, chills, and weight loss, Eyes: Negative for injury, snw pain, redness, and discharge, ENT: Negative for injury, pain, and discharge, Neck: Negative for injury, pain, and swelling, Cardiovascular: Negative for chest pain, palpitations, and edema, Respiratory: Negative for shortness of breath, cough, wheezing, and pleuritic chest pain, Abdomen/GI: Negative for abdominal pain, nausea, vomiting, diarrhea, and constipation, Back: Negative for injury and pain, : Negative for injury, bleeding, discharge, and swelling, Skin: Negative for injury, rash, and discoloration, Neuro: Negative for headache, weakness, numbness, tingling, and seizure. 01:34 MS/extremity: Positive for injury or acute deformity, pain, swelling, of the right tricep. Exam: 01:33 Constitutional: This is a well developed, well nourished patient who is awake, alert, snw and in no acute distress. Head/Face: Normocephalic, atraumatic. Eyes: Pupils equal round and reactive to light, extra-ocular motions intact. Lids and lashes normal. Conjunctiva and sclera are non-icteric and not injected. Cornea within normal limits. Periorbital areas with no swelling, redness, or edema. ENT: Nares patent. No nasal discharge, no septal abnormalities noted. Tympanic membranes are normal and external auditory canals are clear. Oropharynx with no redness, swelling, or masses, exudates, or evidence of obstruction, uvula midline. Mucous membranes moist. Neck: Trachea midline, no thyromegaly or masses palpated, and no cervical lymphadenopathy. Supple, full range of motion without nuchal rigidity, or vertebral point tenderness. No Meningismus. Chest/axilla: Normal chest wall appearance and motion. Nontender with no deformity. No lesions are appreciated. Cardiovascular: Regular rate and rhythm with a normal S1 and S2. No gallops, murmurs, or rubs. Normal PMI, no JVD. No pulse deficits. Respiratory: Lungs have equal breath sounds bilaterally, clear to auscultation and percussion. No rales, rhonchi or wheezes noted. No increased work of breathing, no retractions or nasal flaring. Abdomen/GI: Soft, non-tender, with normal bowel sounds. No distension or tympany. No guarding or rebound. No evidence of tenderness throughout. Back: No spinal tenderness. No costovertebral tenderness. Full range of motion. Skin: Warm, dry with normal turgor. Normal color with no rashes, no lesions, and no evidence of cellulitis. Neuro: Awake and alert, GCS 15, oriented to person, place, time, and situation. Cranial nerves II-XII grossly intact. Motor strength 5/5 in all extremities. Sensory grossly intact. Cerebellar exam normal. Normal gait. Psych: Awake, alert, with orientation to person, place and time. Behavior, mood, and affect are within normal limits. 01:33 Musculoskeletal/extremity: Extremities: grossly normal except: noted in the right tricep: erythema, swelling, tenderness. Vital Signs: 01:13 BP 106 / 65; Pulse 81; Resp 17 S; Temp 97.3(TE); Pulse Ox 97% on R/A; Weight 71.21 kg jd3 (R); Height 5 ft. 7 in. (170.18 cm) (R); Pain 10/10; 01:13 Body Mass Index 24.59 (71.21 kg, 170.18 cm) jd3 MDM: 01:23 Patient medically screened. snw 01:32 Data reviewed: vital signs, nurses notes. Data interpreted: Pulse oximetry: on room air snw is 97 %. Interpretation: normal. Counseling: I had a detailed discussion with the patient and/or guardian regarding: the historical points, exam findings, and any diagnostic results supporting the discharge/admit diagnosis, the need for outpatient follow up, for definitive care, to return to the emergency department if symptoms worsen or persist or if there are any questions or concerns that arise at home. Special discussion: Based on the history and exam findings, there is no indication for further emergent testing or inpatient evaluation. I discussed with the patient/guardian the need to see the primary care provider for further evaluation of the symptoms. 01/21 01:29 Order name: Ice pack; Complete Time: 01:39 snw Administered Medications: 01:40 Drug: Benadryl 50 mg Route: PO; jb4 01:40 Follow up: Response: Medication administered at discharge. jb4 01:40 Drug: [place] 5 mg-325 mg 1 tabs Route: PO; jb4 01:40 Follow up: Response: Medication administered at discharge.; RASS: Alert and Calm (0) jb4 Disposition: 08:58 Co-signature as Attending Physician, Dariel Carson MD I agree with the assessment and bill plan of care. Disposition: 01/21/19 01:30 Discharged to Home. Impression: Adverse effect of antiviral drugs - IM injection. - Condition is Stable. - Discharge Instructions: Post-Injection Inflammatory Reaction, Cryotherapy. - Prescriptions for Benadryl 25 mg Oral Capsule - take 1 capsule by ORAL route every 6 hours As needed; 30 tablet. - Medication Reconciliation Form, Thank You Letter, Antibiotic Education, Prescription Opioid Use form. - Follow up: Joe uCmmings MD; When: 1 - 2 days; Reason: Recheck today's complaints, Continuance of care, Re-evaluation by your physician. Follow up: Emergency Department; When: As needed; Reason: Worsening of condition. Signatures: Dariel Carson MD MD cha Therrien, Shelly, LEAD PONY RIDER-C LEAD PONY RIDER-Csnw Joe Andersen RN RN jb4 Maged Guerrier RN RN jd3 Corrections: (The following items were deleted from the chart) 01:41 01:30 01/21/2019 01:30 Discharged to Home. Impression: Adverse effect of antiviral jb4 drugs - IM injection. Condition is Stable. Forms are Medication Reconciliation Form, Thank You Letter, Antibiotic Education, Prescription Opioid Use. Follow up: Joe Cummings; When: 1 - 2 days; Reason: Recheck today's complaints, Continuance of care, Re-evaluation by your physician. Follow up: Emergency Department; When: As needed; Reason: Worsening of condition. snw
--- NOTE | 2019-01-21 01:30 | ER ---
Nurse's Notes [facility] Name: Orly Henderson Age: 58 yrs Sex: Female : 1960 Arrival Date: 01/21/2019 Time: 01:07 Bed 14 Private MD: Joe Cummings R Diagnosis: Adverse effect of antiviral drugs-IM injection Presentation: 01/21 01:10 Presenting complaint: Patient states: "I got my flu shot this morning and now my entire jd3 right arm is swollen and it hurts form elbow to shoulder.". Transition of care: patient was not received from another setting of care. Onset of symptoms was January 21, 2019. Risk Assessment: Do you want to hurt yourself or someone else? Patient reports no desire to harm self or others. Initial Sepsis Screen: Does the patient meet any 2 criteria? No. Patient's initial sepsis screen is negative. Does the patient have a suspected source of infection? No. Patient's initial sepsis screen is negative. Care prior to arrival: None. 01:10 Method Of Arrival: Ambulatory jd3 01:10 Acuity: ANDREINA 3 jd3 Historical: - Allergies: 01:13 Benadryl IV; jd3 01:13 Bioxan; jd3 01:13 Flagyl; jd3 - Home Meds: 01:13 tizanidine 4 mg Oral cap 1 cap daily [Active]; meloxicam 7.5 mg Oral tab 1 tab once jd3 daily [Active]; rosuvastatin 5 mg Oral tab 1 tab once daily [Active]; alendronate 70 mg Oral tab 1 tab once wkly [Active]; buspirone 15 mg Oral tab 0.5 tab 2 times per day [Active]; pantoprazole 40 mg Oral TbEC 1 tab once daily [Active]; venlafaxine 150 mg Oral cp24 1 cap once daily [Active]; sucralfate 1 gram Oral tab 1 tab 4 times per day [Active]; topiramate 25 mg Oral cpSP 2 caps 2 times per day [Active]; Vitamin D3 1,000 unit Oral cap [Active]; - PMHx: 01:13 Fibromyalgia; Osteoporosis; Mitral Prolapse; High Cholesterol; Hernia; Ulcers; Bipolar jd3 disorder; Arthritis; - PSHx: 01:13 R shoulder surgery; Tonsillectomy; L shoulder surgery; Cholecystectomy; Hysterectomy; jd3 - Immunization history:: Adult Immunizations up to date, Flu vaccine is up to date. - Social history:: Smoking status: Patient uses tobacco products, smokes one-half pack cigarettes per day. - Ebola Screening: : Patient negative for fever greater than or equal to 101.5 degrees Fahrenheit, and additional compatible Ebola Virus Disease symptoms. Screenin:20 Abuse screen: Denies threats or abuse. Nutritional screening: No deficits noted. jb4 Tuberculosis screening: No symptoms or risk factors identified. Fall Risk None identified. Assessment: 01:15 General: Appears in no apparent distress. uncomfortable, Behavior is calm, cooperative, jb4 appropriate for age. Pain: Complains of pain in right bicep and right tricep Pain radiates to right hand Pain currently is 10 out of 10 on a pain scale. Quality of pain is described as stabbing, Is continuous. Neuro: Level of Consciousness is awake, alert, obeys commands, Oriented to person, place, time, situation. Cardiovascular: Patient's skin is warm and dry. Respiratory: Airway is patent Respiratory effort is even, unlabored, Respiratory pattern is regular, symmetrical. GI: No deficits noted. No signs and/or symptoms were reported involving the gastrointestinal system. : No deficits noted. No signs and/or symptoms were reported regarding the genitourinary system. EENT: No deficits noted. No signs and/or symptoms were reported regarding the EENT system. Derm: Skin is intact, Skin is pink, warm \\T\\ dry. Musculoskeletal: Circulation, motion, and sensation intact. Range of motion: intact in all extremities. Vital Signs: 01:13 BP 106 / 65; Pulse 81; Resp 17 S; Temp 97.3(TE); Pulse Ox 97% on R/A; Weight 71.21 kg jd3 (R); Height 5 ft. 7 in. (170.18 cm) (R); Pain 10/10; 01:13 Body Mass Index 24.59 (71.21 kg, 170.18 cm) jd3 ED Course: 01:07 Patient arrived in ED. es 01:08 Joe Cummings MD is Private Physician. es 01:11 Triage completed. jd3 01:13 Arm band placed on. jd3 01:20 Patient has correct armband on for positive identification. Bed in low position. Call jb4 light in reach. Side rails up X 1. 01:23 Deedee Regan [facility]-C [facility]. snw 01:23 Dariel Carson MD is Attending Physician. snw 01:27 Joe Andersen, RN is Primary Nurse. jb4 01:29 Joe Cummings MD is Referral Physician. snw 01:41 No provider procedures requiring assistance completed. Patient did not have IV access jb4 during this emergency room visit. Administered Medications: 01:40 Drug: Benadryl 50 mg Route: PO; jb4 01:40 Follow up: Response: Medication administered at discharge. jb4 01:40 Drug: [place] 5 mg-325 mg 1 tabs Route: PO; jb4 01:40 Follow up: Response: Medication administered at discharge.; RASS: Alert and Calm (0) jb4 Outcome: 01:30 Discharge ordered by . snw 01:41 Discharged to home ambulatory, with family. jb4 01:41 Condition: stable 01:41 Discharge instructions given to patient, family, Instructed on discharge instructions, follow up and referral plans. medication usage, Demonstrated understanding of instructions, follow-up care, medications, Prescriptions given X 1. 01:41 Patient left the ED. jb4 Signatures: Deedee Regan FNP-C [employer] [facility] Eileen Myers James, RN RN jb4 Maged Guerrier RN RN jd3
[2019-01-21] MEDS ORDERED: DIPHENHYDRAMINE 25 MG TAB/CAP ONE (01:36)
[2019-01-21] MEDS ORDERED: HYDROCODONE/APAP 5/325 MG TAB ONE (01:37)
[2019-01-21 01:48] VITALS: BP 106/65; TEMP 97.3; O2SAT 97
== END 2019-01-21 01:41 | disposition home or self-care (01) ==
LOC: ER 01:04
DX: T88.1XXA Other complications following immunization, not elsewhere classified, initial encounter (principal); T50.B95A Adverse effect of other viral vaccines, initial encounter; Y92.9 Unspecified place or not applicable; Z88.8 Allergy status to other drugs, medicaments and biological substances; M79.7 Fibromyalgia; E78.00 Pure hypercholesterolemia, unspecified; F17.210 Nicotine dependence, cigarettes, uncomplicated
CPT/HCPCS: 99283

== ENCOUNTER 2019-02-08 19:13 | Emergency (ER) | payer OTHER ==
--- OUTSIDE RECORDS SUMMARY | 2019-02-08 19:16 | XMS REPORT ---
:1960 [facility] [address] [place] [address] Care Team Providers Name Role Phone Unavailable Unavailable Unavailable Payers Payer Name Policy Type Policy Number Effective Date Expiration Date Problems This patient has no known problems. Allergies, Adverse Reactions, Alerts Allergy Name Allergy Status Severity Reaction(s) Onset Inactive Treating Comments Type Date Date Clinician metronidazole DA Active U 416 00:00: 00 diphenhydramine DA Active U 0 16 00:00: 00 clarithromycin DA Active SV 16 00:00: 00 Medications This patient has no known medications. Encounters Start End Encounter Admission Attending Care Care Encounter Date/Time Date/Time Type Type Clinicians Facility Department ID 2018-06-29 2018-06-29 Emergency E [facility] 7500 08:15:00 08:15:00 Results Test Description Test Time Test Comments Text Results Atomic Results Result Comments - SP VERT ANGIO UNILAT 2018-07-21 15:41:00 Name: SORAYA SHETTY [facility] : 1960 Age/S: 58 / F [address] Unit #: [id number] Loc: [place] [address] Phys: Lenin Akhtar MD Acct: [id number] Dis Date: Status: [facility] PHONE #: [phone] Exam Date: 07/14/2018 1208 FAX #: [phone] Reason: EXAMS: CPT CODE: [id number] SP VERT ANGIO UNILAT 34586 Fluoro Time: DAP (Gy m2): Air Kerma (mGy): EXAM: Angiography of the cervical thoracic arch and selective angiography of both common and internal carotid arteries and both vertebral arteries including magnification and rotational angiography; ultrasound-guided vascular access; Conscious sedation; INFORMATION: HISTORY of headaches; 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 The patient's heart rate, blood pressure and pulse oximetry were continuously monitored by a trained registered nurse. Informed consent was obtained after explaining benefits and risks of procedure including risks of thromboembolic complications and the patient was placed supine on the angiography table. Her right groin was prepped and draped in the usual sterile fashion. Xylocaine was administered and using sonographic guidance the right common femoral artery was accessed with a micropuncture system, followed by insertion of an 035 guidewire. Sonographic images were stored in PACS. The guidewire and a 5 Swiss Omni Flush catheter were advanced into the ascending aorta and arch angiography was performed. The arch was unremarkable and also aortic vessels including the brachiocephalic artery, both common carotid arteries, both subclavian arteries and both vertebral arteries were patent and without significant stenosis or plaques. There was the anatomic variation of direct takeoff of the left vertebral artery from the aortic arch. Selective catheterization of both common carotid and subsequently of both internal carotid arteries and of both vertebral arteries was performed using a 4 Swiss circular stuffer catheter. Magnification angiography and rotational angiography was performed. Both external and internal carotid arteries are patent. No significant plaques and no stenoses. Selective angiography of the right ICA shows a 2.5 mm saccular aneurysm bridging from the medial aspect of the A2 segment of the right anterior cerebral artery. Otherwise both anterior and middle cerebral arteries and both intracranial portions of the vertebral arteries, the basilar artery and the posterior cerebral arteries are unremarkable without evidence of additional aneurysms and without evidence of vascular malformations or of atherosclerotic changes. The star close system was used and hemostasis was promptly achieved in PAGE 1 Signed Report (CONTINUED) Name: SORAYA SHETTY [facility] : 1960 Age/S: 58 / F [address] Unit #: [id number] Loc: [place] [address] Phys: Lenin Akhtar MD Acct: [id number] Dis Date: Status: [facility] PHONE #: [phone] Exam Date: 07/14/20188 FAX #: [phone] Reason: EXAMS: CPT CODE: [id number] SP VERT ANGIO UNILAT 40836 Fluoro Time: DAP (Gy m2): Air Kerma (mGy): <Continued> the right groin after removal of the diagnostic catheter and the access sheath. No complications. IMPRESSION: 1. Unremarkable cervical thoracic arch and supraaortic vessels. 2. 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 3. No additional aneurysms or other significant vascular abnormalities were identified. Fluoroscopy Time: 384 sec CAK : 1000.1 mGy DAP : 564739 mGy sq cm at 1541 Reported and signed by: Lenin Akhtar M.D. CC: Kiko Hendrickson MD Technologist: Ge Gould [facility] Date/Time: 07/21/2018 (2169) Jose Daniel Orig Print D/T: S: 07/21/2018 (7914) PAGE 2 Signed Report - SP VERT ANGIO UNILAT 2018-07-21 15:41:00 Name: DIOGENESSORAYA A [facility] : 1960 Age/S: 58 / F [address] [facility] Unit #: [id number] Loc: [place] [address] Phys: Lenin Akhtar MD Acct: [id number] Dis Date: Status: [facility] PHONE #: [phone] Exam Date: 07/14/2018 1208 FAX #: [phone] Reason: EXAMS: CPT CODE: [id number] SP VERT ANGIO UNILAT 01408 Fluoro Time: DAP (Gy m2): Air Kerma (mGy): EXAM: Angiography of the cervical thoracic arch and selective angiography of both common and internal carotid arteries and both vertebral arteries including magnification and rotational angiography; ultrasound-guided vascular access; Conscious sedation; INFORMATION: HISTORY of headaches; 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 The patient's heart rate, blood pressure and pulse oximetry were continuously monitored by a trained registered nurse. Informed consent was obtained after explaining benefits and risks of procedure including risks of thromboembolic complications and the patient was placed supine on the angiography table. Her right groin was prepped and draped in the usual sterile fashion. Xylocaine was administered and using sonographic guidance the right common femoral artery was accessed with a micropuncture system, followed by insertion of an 035 guidewire. Sonographic images were stored in PACS. The guidewire and a 5 Swiss Omni Flush catheter were advanced into the ascending aorta and arch angiography was performed. The arch was unremarkable and also aortic vessels including the brachiocephalic artery, both common carotid arteries, both subclavian arteries and both vertebral arteries were patent and without significant stenosis or plaques. There was the anatomic variation of direct takeoff of the left vertebral artery from the aortic arch. Selective catheterization of both common carotid and subsequently of both internal carotid arteries and of both vertebral arteries was performed using a 4 Swiss circular stuffer catheter. Magnification angiography and rotational angiography was performed. Both external and internal carotid arteries are patent. No significant plaques and no stenoses. Selective angiography of the right ICA shows a 2.5 mm saccular aneurysm bridging from the medial aspect of the A2 segment of the right anterior cerebral artery. Otherwise both anterior and middle cerebral arteries and both intracranial portions of the vertebral arteries, the basilar artery and the posterior cerebral arteries are unremarkable without evidence of additional aneurysms and without evidence of vascular malformations or of atherosclerotic changes. The star close system was used and hemostasis was promptly achieved in PAGE 1 Signed Report (CONTINUED) Name: SORAYA SHETTY [facility] : 1960 Age/S: 58 / F [address] [facility] Unit #: [id number] Loc: [place] [address] Phys: Lenin Akhtar MD Acct: [id number] Dis Date: Status: [facility] PHONE #: [phone] Exam Date: 07/14/2018 1208 FAX #: [phone] Reason: EXAMS: CPT CODE: [id number] VERT ANGIO UNILAT 69442 Fluoro Time: DAP (Gy m2): Air Kerma (mGy): <Continued> the right groin after removal of the diagnostic catheter and the access sheath. No complications. IMPRESSION: 1. Unremarkable cervical thoracic arch and supraaortic vessels. 2. 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 3. No additional aneurysms or other significant vascular abnormalities were identified. Fluoroscopy Time: 384 sec CAK : 1000.1 mGy DAP : 364113 mGy sq cm at 1541 Reported and signed by: Lenin Akhtar M.D. CC: Kiko Hendrickson MD Technologist: Ge Gould [facility] Date/Time: 07/21/2018 (6046) [email or web address] Orig Print D/T: S: 07/21/2018 (2013) PAGE 2 Signed Report - SP INT CAROTID ANGIO UNI 2018-07-21 15:41:00 Name: SORAYA SHETTY [facility] : 1960 Age/S: 58 / F [address] [facility]: [id number] Loc: [facility] [place] [address] Phys: Lenin Akhtar MD Acct: [id number] Dis Date: Status: [facility] PHONE #: [phone] Exam Date: 07/14/20188 FAX #: [phone] Reason: EXAMS: CPT CODE: [id number] INT CAROTID ANGIO UNI 25857 Fluoro Time: DAP (Gy m2): Air Kerma (mGy): EXAM: Angiography of the cervical thoracic arch and selective angiography of both common and internal carotid arteries and both vertebral arteries including magnification and rotational angiography; ultrasound-guided vascular access; Conscious sedation; INFORMATION: HISTORY of headaches; 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 The patient's heart rate, blood pressure and pulse oximetry were continuously monitored by a trained registered nurse. Informed consent was obtained after explaining benefits and risks of procedure including risks of thromboembolic complications and the patient was placed supine on the angiography table. Her right groin was prepped and draped in the usual sterile fashion. Xylocaine was administered and using sonographic guidance the right common femoral artery was accessed with a micropuncture system, followed by insertion of an 035 guidewire. Sonographic images were stored in PACS. The guidewire and a 5 Swiss Omni Flush catheter were advanced into the ascending aorta and arch angiography was performed. The arch was unremarkable and also aortic vessels including the brachiocephalic artery, both common carotid arteries, both subclavian arteries and both vertebral arteries were patent and without significant stenosis or plaques. There was the anatomic variation of direct takeoff of the left vertebral artery from the aortic arch. Selective catheterization of both common carotid and subsequently of both internal carotid arteries and of both vertebral arteries was performed using a 4 Swiss circular stuffer catheter. Magnification angiography and rotational angiography was performed. Both external and internal carotid arteries are patent. No significant plaques and no stenoses. Selective angiography of the right ICA shows a 2.5 mm saccular aneurysm bridging from the medial aspect of the A2 segment of the right anterior cerebral artery. Otherwise both anterior and middle cerebral arteries and both intracranial portions of the vertebral arteries, the basilar artery and the posterior cerebral arteries are unremarkable without evidence of additional aneurysms and without evidence of vascular malformations or of atherosclerotic changes. The star close system was used and hemostasis was promptly achieved in PAGE 1 Signed Report (CONTINUED) Name: SORAYA SHETTY [facility] SP : 1960 Age/S: 58 / F [address] [facility] Unit #: [id number] Loc: [place] [address] Phys: Lenin Akhtar MD Acct: [id number] Dis Date: Status: [facility] PHONE #: [phone] Exam Date: 07/14/2018 1209 FAX #: [phone] Reason: EXAMS: CPT CODE: [id number] SP INT CAROTID ANGIO UNI 19351 Fluoro Time: DAP (Gy m2): Air Kerma (mGy): <Continued> the right groin after removal of the diagnostic catheter and the access sheath. No complications. IMPRESSION: 1. Unremarkable cervical thoracic arch and supraaortic vessels. 2. 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 3. No additional aneurysms or other significant vascular abnormalities were identified. Fluoroscopy Time: 384 sec CAK : 1000.1 mGy DAP : 027439 mGy sq cm at 1541 Reported and signed by: Lenin Akhtar M.D. CC: Kiko Hendrickson MD Technologist: Ge Gould [facility] Date/Time: 07/21/2018 (7352) [email or web address] Orig Print D/T: S: 07/21/2018 (6403) PAGE 2 Signed Report - INT CAROTID ANGIO UNI 2018-07-21 15:41:00 Name: SORAYA SHETTY [facility] : 1960 Age/S: 58 / F [address] [facility] Unit #: [id number] Loc: [place] [address] Phys: Lenin Akhtar MD Acct: [id number] Dis Date: Status: [facility] PHONE #: [phone] Exam Date: 07/14/2018 1204 FAX #: [phone] Reason: EXAMS: CPT CODE: [id number] INT CAROTID ANGIO UNI 03080 Fluoro Time: DAP (Gy m2): Air Kerma (mGy): EXAM: Angiography of the cervical thoracic arch and selective angiography of both common and internal carotid arteries and both vertebral arteries including magnification and rotational angiography; ultrasound-guided vascular access; Conscious sedation; INFORMATION: HISTORY of headaches; 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 The patient's heart rate, blood pressure and pulse oximetry were continuously monitored by a trained registered nurse. Informed consent was obtained after explaining benefits and risks of procedure including risks of thromboembolic complications and the patient was placed supine on the angiography table. Her right groin was prepped and draped in the usual sterile fashion. Xylocaine was administered and using sonographic guidance the right common femoral artery was accessed with a micropuncture system, followed by insertion of an 035 guidewire. Sonographic images were stored in PACS. The guidewire and a 5 Swiss Omni Flush catheter were advanced into the ascending aorta and arch angiography was performed. The arch was unremarkable and also aortic vessels including the brachiocephalic artery, both common carotid arteries, both subclavian arteries and both vertebral arteries were patent and without significant stenosis or plaques. There was the anatomic variation of direct takeoff of the left vertebral artery from the aortic arch. Selective catheterization of both common carotid and subsequently of both internal carotid arteries and of both vertebral arteries was performed using a 4 Swiss circular stuffer catheter. Magnification angiography and rotational angiography was performed. Both external and internal carotid arteries are patent. No significant plaques and no stenoses. Selective angiography of the right ICA shows a 2.5 mm saccular aneurysm bridging from the medial aspect of the A2 segment of the right anterior cerebral artery. Otherwise both anterior and middle cerebral arteries and both intracranial portions of the vertebral arteries, the basilar artery and the posterior cerebral arteries are unremarkable without evidence of additional aneurysms and without evidence of vascular malformations or of atherosclerotic changes. The star close system was used and hemostasis was promptly achieved in PAGE 1 Signed Report (CONTINUED) Name: SHETTYSORAYA HUGHES Ney [facility] : 1960 Age/S: 58 / F [address] [facility] Unit #: [id number] Loc: [place] [address] Phys: Lenin Akhtar MD Acct: [id number] Dis Date: Status: [facility] PHONE #: [phone] Exam Date: 07/14/2018 1208 FAX #: [phone] Reason: EXAMS: CPT CODE: [id number] SP INT CAROTID ANGIO UNI 83355 Fluoro Time: DAP (Gy m2): Air Kerma (mGy): <Continued> the right groin after removal of the diagnostic catheter and the access sheath. No complications. IMPRESSION: 1. Unremarkable cervical thoracic arch and supraaortic vessels. 2. 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 3. No additional aneurysms or other significant vascular abnormalities were identified. Fluoroscopy Time: 384 sec CAK : 1000.1 mGy DAP : 651219 mGy sq cm at 1541 Reported and signed by: Lenin Akhtar M.D. CC: Kiko Hendrickson MD Technologist: Ge Gould [facility] Date/Time: 07/21/2018 (0940) [email or web address] Orig Print D/T: S: 07/21/2018 (2638) PAGE 2 Signed Report - SP EX CAROTID ANGIO UNIL 2018-07-21 15:41:00 Name: DIOGENESSORAYA A [facility] : 1960 Age/S: 58 / F [address] [facility] Unit #: [id number] Loc: [place] [address] Phys: Lenin Akhtar MD Acct: [id number] Dis Date: Status: [facility] PHONE #: [phone] Exam Date: 07/14/2018 1208 FAX #: [phone] Reason: EXAMS: CPT CODE: [id number] SP EX CAROTID ANGIO UNIL 99078 Fluoro Time: DAP (Gy m2): Air Kerma (mGy): EXAM: Angiography of the cervical thoracic arch and selective angiography of both common and internal carotid arteries and both vertebral arteries including magnification and rotational angiography; ultrasound-guided vascular access; Conscious sedation; INFORMATION: HISTORY of headaches; 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 The patient's heart rate, blood pressure and pulse oximetry were continuously monitored by a trained registered nurse. Informed consent was obtained after explaining benefits and risks of procedure including risks of thromboembolic complications and the patient was placed supine on the angiography table. Her right groin was prepped and draped in the usual sterile fashion. Xylocaine was administered and using sonographic guidance the right common femoral artery was accessed with a micropuncture system, followed by insertion of an 035 guidewire. Sonographic images were stored in PACS. The guidewire and a 5 Swiss Omni Flush catheter were advanced into the ascending aorta and arch angiography was performed. The arch was unremarkable and also aortic vessels including the brachiocephalic artery, both common carotid arteries, both subclavian arteries and both vertebral arteries were patent and without significant stenosis or plaques. There was the anatomic variation of direct takeoff of the left vertebral artery from the aortic arch. Selective catheterization of both common carotid and subsequently of both internal carotid arteries and of both vertebral arteries was performed using a 4 Swiss circular stuffer catheter. Magnification angiography and rotational angiography was performed. Both external and internal carotid arteries are patent. No significant plaques and no stenoses. Selective angiography of the right ICA shows a 2.5 mm saccular aneurysm bridging from the medial aspect of the A2 segment of the right anterior cerebral artery. Otherwise both anterior and middle cerebral arteries and both intracranial portions of the vertebral arteries, the basilar artery and the posterior cerebral arteries are unremarkable without evidence of additional aneurysms and without evidence of vascular malformations or of atherosclerotic changes. The star close system was used and hemostasis was promptly achieved in PAGE 1 Signed Report (CONTINUED) Name: SORAYA SHETTY [facility] : 1960 Age/S: 58 / F [address] [facility] Unit #: [id number] Loc: [place] [address] Phys: Lenin Akhtar MD Acct: [id number] Dis Date: Status: [facility] PHONE #: [phone] Exam Date: 07/14/2018 1208 FAX #: [phone] Reason: EXAMS: CPT CODE: [id number] SP EX CAROTID ANGIO UNIL 70944 Fluoro Time: DAP (Gy m2): Air Kerma (mGy): <Continued> the right groin after removal of the diagnostic catheter and the access sheath. No complications. IMPRESSION: 1. Unremarkable cervical thoracic arch and supraaortic vessels. 2. 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 3. No additional aneurysms or other significant vascular abnormalities were identified. Fluoroscopy Time: 384 sec CAK : 1000.1 mGy DAP : 389513 mGy sq cm at 1541 Reported and signed by: Lenin Akhtar M.D. CC: Kiko Hendrickson MD Technologist: Ge Gould [facility] Date/Time: 07/21/2018 (7532) [email or web address] Orig Print D/T: S: 07/21/2018 (3051) PAGE 2 Signed Report - SP EX CAROTID ANGIO UNIL 2018-07-21 15:41:00 Name: SORAYA SHETTY [facility] SP : 1960 Age/S: 58 / F [address] [facility] Unit #: [id number] Loc: [place] [address] Phys: Lenin Akhtar MD Acct: [id number] Dis Date: Status: [facility] PHONE #: [phone] Exam Date: 07/14/2018 1208 FAX #: [phone] Reason: EXAMS: CPT CODE: [id number] SP EX CAROTID ANGIO UNIL 10538 Fluoro Time: DAP (Gy m2): Air Kerma (mGy): EXAM: Angiography of the cervical thoracic arch and selective angiography of both common and internal carotid arteries and both vertebral arteries including magnification and rotational angiography; ultrasound-guided vascular access; Conscious sedation; INFORMATION: HISTORY of headaches; 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 The patient's heart rate, blood pressure and pulse oximetry were continuously monitored by a trained registered nurse. Informed consent was obtained after explaining benefits and risks of procedure including risks of thromboembolic complications and the patient was placed supine on the angiography table. Her right groin was prepped and draped in the usual sterile fashion. Xylocaine was administered and using sonographic guidance the right common femoral artery was accessed with a micropuncture system, followed by insertion of an 035 guidewire. Sonographic images were stored in PACS. The guidewire and a 5 Swiss Omni Flush catheter were advanced into the ascending aorta and arch angiography was performed. The arch was unremarkable and also aortic vessels including the brachiocephalic artery, both common carotid arteries, both subclavian arteries and both vertebral arteries were patent and without significant stenosis or plaques. There was the anatomic variation of direct takeoff of the left vertebral artery from the aortic arch. Selective catheterization of both common carotid and subsequently of both internal carotid arteries and of both vertebral arteries was performed using a 4 Swiss circular stuffer catheter. Magnification angiography and rotational angiography was performed. Both external and internal carotid arteries are patent. No significant plaques and no stenoses. Selective angiography of the right ICA shows a 2.5 mm saccular aneurysm bridging from the medial aspect of the A2 segment of the right anterior cerebral artery. Otherwise both anterior and middle cerebral arteries and both intracranial portions of the vertebral arteries, the basilar artery and the posterior cerebral arteries are unremarkable without evidence of additional aneurysms and without evidence of vascular malformations or of atherosclerotic changes. The star close system was used and hemostasis was promptly achieved in PAGE 1 Signed Report (CONTINUED) Name: SORAYA SHETTY [facility] : 1960 Age/S: 58 / F [address] [facility] Unit #: [id number] Loc: [place] [address] Phys: Lenin Akhtar MD Acct: [id number] Dis Date: Status: [facility] PHONE #: [phone] Exam Date: 07/14/2018 1208 FAX #: [phone] Reason: EXAMS: CPT CODE: [id number] SP EX CAROTID ANGIO UNIL [id number] Fluoro Time: DAP (Gy m2): Air Kerma (mGy): <Continued> the right groin after removal of the diagnostic catheter and the access sheath. No complications. IMPRESSION: 1. Unremarkable cervical thoracic arch and supraaortic vessels. 2. 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 3. No additional aneurysms or other significant vascular abnormalities were identified. Fluoroscopy Time: 384 sec CAK : 1000.1 mGy DAP : 222986 mGy sq cm at 1541 Reported and signed by: Lenin Akhtar M.D. CC: Kiko Hendrickson MD Technologist: Ge Gould [employer] Date/Time: 07/21/2018 (5223) Jose Daniel Orig Print D/T: S: 07/21/2018 (7458) PAGE 2 Signed Report - NSP THOR AORT W/ANGIO 2018-07-21 15:41:00 Name: SORAYA SHETTY [facility] : 1960 Age/S: 58 / F [address] Unit #: [id number] Loc: [place] [address] Phys: Lenin Akhtar MD Acct: [id number] Dis Date: Status: [facility] PHONE #: [phone] Exam Date: 07/14/2018 1208 FAX #: [phone] Reason: EXAMS: CPT CODE: [id number] NSP THOR AORT W/ANGIO 38529 Fluoro Time: 384 DAP (Gy m2): 525715 Air Kerma (mGy): 1000. EXAM: Angiography of the cervical thoracic arch and selective angiography of both common and internal carotid arteries and both vertebral arteries including magnification and rotational angiography; ultrasound-guided vascular access; Conscious sedation; INFORMATION: HISTORY of headaches; 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 The patient's heart rate, blood pressure and pulse oximetry were continuously monitored by a trained registered nurse. Informed consent was obtained after explaining benefits and risks of procedure including risks of thromboembolic complications and the patient was placed supine on the angiography table. Her right groin was prepped and draped in the usual sterile fashion. Xylocaine was administered and using sonographic guidance the right common femoral artery was accessed with a micropuncture system, followed by insertion of an 035 guidewire. Sonographic images were stored in PACS. The guidewire and a 5 Swiss Omni Flush catheter were advanced into the ascending aorta and arch angiography was performed. The arch was unremarkable and also aortic vessels including the brachiocephalic artery, both common carotid arteries, both subclavian arteries and both vertebral arteries were patent and without significant stenosis or plaques. There was the anatomic variation of direct takeoff of the left vertebral artery from the aortic arch. Selective catheterization of both common carotid and subsequently of both internal carotid arteries and of both vertebral arteries was performed using a 4 Swiss circular stuffer catheter. Magnification angiography and rotational angiography was performed. Both external and internal carotid arteries are patent. No significant plaques and no stenoses. Selective angiography of the right ICA shows a 2.5 mm saccular aneurysm bridging from the medial aspect of the A2 segment of the right anterior cerebral artery. Otherwise both anterior and middle cerebral arteries and both intracranial portions of the vertebral arteries, the basilar artery and the posterior cerebral arteries are unremarkable without evidence of additional aneurysms and without evidence of vascular malformations or of atherosclerotic changes. The star close system was used and hemostasis was promptly achieved in PAGE 1 Signed Report (CONTINUED) Name: SORAYA SHETTY [facility] : 1960 Age/S: 58 / F [address] [facility] Unit #: [id number] Loc: [place] [address] Phys: Lenin Akhtar MD Acct: [id number] Dis Date: Status: [facility] PHONE #: [phone] Exam Date: 07/14/2018 1200 FAX #: [phone] Reason: EXAMS: CPT CODE: [id number] NSP THOR AORT W/ANGIO 42929 Fluoro Time: 384 DAP (Gy m2): 315826 Air Kerma (mGy): 1000. <Continued> the right groin after removal of the diagnostic catheter and the access sheath. No complications. IMPRESSION: 1. Unremarkable cervical thoracic arch and supraaortic vessels. 2. 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 3. No additional aneurysms or other significant vascular abnormalities were identified. Fluoroscopy Time: 384 sec CAK : 1000.1 mGy DAP : 371640 mGy sq cm at 1541 Reported and signed by: Lenin Akhtar M.D. CC: Kiko Hendrickson MD Technologist: Ge Gould [facility] Date/Time: 07/21/2018 (1541) [email or web address] Orig Print D/T: S: 07/21/2018 (3624) PAGE 2 Signed Report CBC W/MANUAL DIFF 2018-07-06 15:43:00 Test Item Value Reference Range Comments WHITE BLOOD CELL (test code=WBC) 5.4 K/mm3 4.5-12.5 RED BLOOD CELL (test code=RBC) 3.91 mill/mm3 3.7-5.2 HEMOGLOBIN (test code=HGB) 11.3 gram/dL 11.5-15.5 HEMATOCRIT (test code=HCT) 37.6 % 36.0-46.0 MEAN CELL VOLUME (test code=MCV) 96.2 fL 80-98 MEAN CELL HGB (test code=MCH) 28.9 picogram 27.0-33.0 MEAN CELL HGB CONCETRATION (test code=MCHC) 30.1 gram/dL 33.0-36.0 RED CELL DISTRIBUTION WIDTH (test code=RDW) 12.5 % 11.6-16.2 RED CELL DISTRIBUTION WIDTH SD (test code=RDW-SD) 43.9 fL 37.0-51.0 PLATELET COUNT (test code=PLT) 285 K/mm3 150-450 MEAN PLATELET VOLUME (test code=MPV) 9.5 fL 6.7-11.0 IMMATURE GRANULOCYTE % (test code=IG%) 0.2 % 0.0-5.0 NUCLEATED RBC % (test code=NRBC%) 0.0 % 0-0 NEUTROPHIL # (test code=NT#) 2.51 K/mm3 1.8-7.7 IMMATURE GRANULOCYTE # (test code=IG#) 0.01 x10 3/uL 0-0.03 LYMPHOCYTE # (test code=LY#) 2.27 K/mm3 1.0-5.0 MONOCYTE # (test code=MO#) 0.36 K/mm3 0-0.8 EOSINOPHIL # (test code=EO#) 0.24 K/mm3 0.0-0.5 BASOPHIL # (test code=BA#) 0.04 K/mm3 0.0-0.2 NUCLEATED RBC # (test code=NRBC#) 0.00 K/mm3 0.0-0.1 MANUAL DIFF REQUIRED (test code=MDIFF) YES STAIN ACCEPTABILITY (test code=STN ACCEPTABLE) STAIN ACCEPTABLE TOTAL CELLS COUNTED (test code=TCC) 114 #CELLS SEGMENTED NEUTROPHILS (test code=SEG) 50.9 % 39-69 BAND NEUTROPHIL (test code=BAND) 0 % 0-10 LYMPHOCYTE (test code=LYMPH) 36.8 % 25-55 REACTIVE LYMPH (test code=RELYMPH) 0 % MONOCYTE (test code=MON) 7.0 % 0-10 EOSINOPHIL (test code=EOS) 4.4 % 0.0-5.0 BASOPHIL (test code=BASO) 0.9 % 0-1.0 METAMYELOCYTE (test code=META) 0 % 0-0 MYELOCYTE (test code=MYELO) 0 % 0.0-0.0 PROMYELOCYTE (test code=PROM) 0 % 0-0 MORPHOLOGY COMMENT (test code=MOC) NORMAL PLATELET ESTIMATE (test code=PLTEST) ADEQUATE PLATELET MORPHOLOGY (test code=PLTMORPH) SIZE VARIABLE IMMATURE FORMS (test code=IMMAT) 0 % COMPREHENSIVE METABOLIC [id number] 15:05:00 Test Item Value Reference Range Comments SODIUM (test code=NA) 143 mmol/L 136-145 POTASSIUM (test code=K) 4.1 mmol/L 3.5-5.1 CHLORIDE (test code=CL) 113.0 mmol/L 98-107 CARBON DIOXIDE (test 25.0 mmol/L 21-32 code=CO2) ANION GAP (test code=GAP) 9.1 10-20 GLUCOSE (test code=GLU) 79 mg/dL 74-106 BLOOD UREA NITROGEN (test 13 mg/dL 7-18 code=BUN) GLOMERULAR FILTRATION RATE > 60 mL/min >=60 Estimated GFR by using (test code=GFR) Modified MDRD formula.Chronic kidney disease is defined as either kidney damageor GFR <60 mL/min/1.73 m2 for >3 months. CREATININE (test code=CREAT) 0.80 mg/dL 0.55-1.02 Note change in reference range due to change in reagent. BUN/CREATININE RATIO (test 16.3 10-20 code=BUN/CREA) TOTAL PROTEIN (test 7.4 gram/dL 6.4-8.2 code=PROT) ALBUMIN (test code=ALB) 4.3 g/dL 3.4-5.0 GLOBULIN (test code=GLOB) 3.1 gram/dL 2.7-4.2 ALBUMIN/GLOBULIN RATIO (test 1.4 0.75-1.50 code=A/G) CALCIUM (test code=CA) 8.6 mg/dL 8.5-10.1 BILIRUBIN TOTAL (test 0.20 mg/dL 0.0-1.0 code=BILT) SGOT/AST (test code=AST) 11 IUnit/L 15-37 SGPT/ALT (test code=ALT) 18 IUnit/L 12-78 ALKALINE PHOSPHATASE TOTAL 66 IUnit/L 45-117 Note change in reference (test code=ALKP) range due to change in reagent. COMPREHENSIVE METABOLIC [id number] 14:58:00 Test Item Value Reference Range Comments SODIUM (test code=NA) 143 mmol/L 136-145 POTASSIUM (test code=K) 4.1 mmol/L 3.5-5.1 CHLORIDE (test code=CL) 113.0 mmol/L 98-107 CARBON DIOXIDE (test code=CO2) mmol/L 21-32 ANION GAP (test code=GAP) 10-20 GLUCOSE (test code=GLU) mg/dL 74-106 BLOOD UREA NITROGEN (test code=BUN) mg/dL 7-18 GLOMERULAR FILTRATION RATE (test code=GFR) mL/min >=60 CREATININE (test code=CREAT) mg/dL 0.55-1.02 BUN/CREATININE RATIO (test code=BUN/CREA) 10-20 TOTAL PROTEIN (test code=PROT) gram/dL 6.4-8.2 ALBUMIN (test code=ALB) g/dL 3.4-5.0 GLOBULIN (test code=GLOB) gram/dL 2.7-4.2 ALBUMIN/GLOBULIN RATIO (test code=A/G) 0.75-1.50 CALCIUM (test code=CA) mg/dL 8.5-10.1 BILIRUBIN TOTAL (test code=BILT) mg/dL 0.0-1.0 SGOT/AST (test code=AST) IUnit/L 15-37 SGPT/ALT (test code=ALT) IUnit/L 12-78 ALKALINE PHOSPHATASE TOTAL (test code=ALKP) IUnit/L 45-117 PROTHROMBIN [id number] 14:56:00 Test Item Value Reference Range Comments PROTHROMBIN TIME PATIENT 11.1 seconds 9.0-14.0 (test code=PTP) INTERNATIONAL NORMAL RATIO 0.9 0.8-1.2 The therapeutic range for (test code=INR) oral anticoagulant therapy formost indications is an international normalized ratio (INR)of between 2.0 and 3.0. The recommended therapeutic INRrange for various clinical situations is listed below: Clinical Situation INR range ____ Pulmonary embolism treatment (2.0-3.0)Venous thrombosis treatmentVenous thrombosis prophylaxis (high risk surgery)Prevention of systemic embolism from: Acute myocardial infarction Valvular heart disease Atrial fibrillation Mechanical prosthetic heart valves (2.5-3.5) THROMBOPLASTIN TIME [id number] 14:56:00 Test Item Value Reference Range Comments THROMBOPLASTIN TIME PARTIAL (test code=PTT) 28.6 seconds 25.0-36.5 CBC W/MANUAL [id number] 14:45:00 Test Item Value Reference Range Comments WHITE BLOOD CELL (test code=WBC) 5.4 K/mm3 4.5-12.5 RED BLOOD CELL (test code=RBC) 3.91 mill/mm3 3.7-5.2 HEMOGLOBIN (test code=HGB) 11.3 gram/dL 11.5-15.5 HEMATOCRIT (test code=HCT) 37.6 % 36.0-46.0 MEAN CELL VOLUME (test code=MCV) 96.2 fL 80-98 MEAN CELL HGB (test code=MCH) 28.9 picogram 27.0-33.0 MEAN CELL HGB CONCETRATION (test code=MCHC) 30.1 gram/dL 33.0-36.0 RED CELL DISTRIBUTION WIDTH (test code=RDW) 12.5 % 11.6-16.2 RED CELL DISTRIBUTION WIDTH SD (test 43.9 fL 37.0-51.0 code=RDW-SD) PLATELET COUNT (test code=PLT) 285 K/mm3 150-450 MEAN PLATELET VOLUME (test code=MPV) 9.5 fL 6.7-11.0 IMMATURE GRANULOCYTE % (test code=IG%) 0.2 % 0.0-5.0 NUCLEATED RBC % (test code=NRBC%) 0.0 % 0-0 NEUTROPHIL # (test code=NT#) 2.51 K/mm3 1.8-7.7 IMMATURE GRANULOCYTE # (test code=IG#) 0.01 x10 3/uL 0-0.03 LYMPHOCYTE # (test code=LY#) 2.27 K/mm3 1.0-5.0 MONOCYTE # (test code=MO#) 0.36 K/mm3 0-0.8 EOSINOPHIL # (test code=EO#) 0.24 K/mm3 0.0-0.5 BASOPHIL # (test code=BA#) 0.04 K/mm3 0.0-0.2 NUCLEATED RBC # (test code=NRBC#) 0.00 K/mm3 0.0-0.1 MANUAL DIFF REQUIRED (test code=MDIFF) YES STAIN ACCEPTABILITY (test code=STN ACCEPTABLE) TOTAL CELLS COUNTED (test code=TCC) #CELLS SEGMENTED NEUTROPHILS (test code=SEG) % 39-69 LYMPHOCYTE (test code=LYMPH) % 25-55 MONOCYTE (test code=MON) % 0-10 EOSINOPHIL (test code=EOS) % 0.0-5.0 CABOT RINGS (test code=CAB) MORPHOLOGY COMMENT (test code=MOC) PLATELET ESTIMATE (test code=PLTEST) PLATELET MORPHOLOGY (test code=PLTMORPH) CBC W/MANUAL [id number] 14:45:00 Test Item Value Reference Range Comments WHITE BLOOD CELL (test code=WBC) 5.4 K/mm3 4.5-12.5 RED BLOOD CELL (test code=RBC) 3.91 mill/mm3 3.7-5.2 HEMOGLOBIN (test code=HGB) 11.3 gram/dL 11.5-15.5 HEMATOCRIT (test code=HCT) 37.6 % 36.0-46.0 MEAN CELL VOLUME (test code=MCV) 96.2 fL 80-98 MEAN CELL HGB (test code=MCH) 28.9 picogram 27.0-33.0 MEAN CELL HGB CONCETRATION (test code=MCHC) 30.1 gram/dL 33.0-36.0 RED CELL DISTRIBUTION WIDTH (test code=RDW) 12.5 % 11.6-16.2 RED CELL DISTRIBUTION WIDTH SD (test 43.9 fL 37.0-51.0 code=RDW-SD) PLATELET COUNT (test code=PLT) 285 K/mm3 150-450 MEAN PLATELET VOLUME (test code=MPV) 9.5 fL 6.7-11.0 IMMATURE GRANULOCYTE % (test code=IG%) 0.2 % 0.0-5.0 NUCLEATED RBC % (test code=NRBC%) 0.0 % 0-0 NEUTROPHIL # (test code=NT#) 2.51 K/mm3 1.8-7.7 IMMATURE GRANULOCYTE # (test code=IG#) 0.01 x10 3/uL 0-0.03 LYMPHOCYTE # (test code=LY#) 2.27 K/mm3 1.0-5.0 MONOCYTE # (test code=MO#) 0.36 K/mm3 0-0.8 EOSINOPHIL # (test code=EO#) 0.24 K/mm3 0.0-0.5 BASOPHIL # (test code=BA#) 0.04 K/mm3 0.0-0.2 NUCLEATED RBC # (test code=NRBC#) 0.00 K/mm3 0.0-0.1 MANUAL DIFF REQUIRED (test code=MDIFF) YES STAIN ACCEPTABILITY (test code=STN ACCEPTABLE) TOTAL CELLS COUNTED (test code=TCC) #CELLS SEGMENTED NEUTROPHILS (test code=SEG) % 39-69 LYMPHOCYTE (test code=LYMPH) % 25-55 MONOCYTE (test code=MON) % 0-10 EOSINOPHIL (test code=EOS) % 0.0-5.0 MORPHOLOGY COMMENT (test code=MOC) PLATELET ESTIMATE (test code=PLTEST) PLATELET MORPHOLOGY (test code=PLTMORPH) CBC W/MANUAL [id number] 14:45:00 Test Item Value Reference Range Comments WHITE BLOOD CELL (test code=WBC) 5.4 K/mm3 4.5-12.5 RED BLOOD CELL (test code=RBC) 3.91 mill/mm3 3.7-5.2 HEMOGLOBIN (test code=HGB) 11.3 gram/dL 11.5-15.5 HEMATOCRIT (test code=HCT) 37.6 % 36.0-46.0 MEAN CELL VOLUME (test code=MCV) 96.2 fL 80-98 MEAN CELL HGB (test code=MCH) 28.9 picogram 27.0-33.0 MEAN CELL HGB CONCETRATION (test code=MCHC) 30.1 gram/dL 33.0-36.0 RED CELL DISTRIBUTION WIDTH (test code=RDW) 12.5 % 11.6-16.2 RED CELL DISTRIBUTION WIDTH SD (test 43.9 fL 37.0-51.0 code=RDW-SD) PLATELET COUNT (test code=PLT) 285 K/mm3 150-450 MEAN PLATELET VOLUME (test code=MPV) 9.5 fL 6.7-11.0 IMMATURE GRANULOCYTE % (test code=IG%) 0.2 % 0.0-5.0 NUCLEATED RBC % (test code=NRBC%) 0.0 % 0-0 NEUTROPHIL # (test code=NT#) 2.51 K/mm3 1.8-7.7 IMMATURE GRANULOCYTE # (test code=IG#) 0.01 x10 3/uL 0-0.03 LYMPHOCYTE # (test code=LY#) 2.27 K/mm3 1.0-5.0 MONOCYTE # (test code=MO#) 0.36 K/mm3 0-0.8 EOSINOPHIL # (test code=EO#) 0.24 K/mm3 0.0-0.5 BASOPHIL # (test code=BA#) 0.04 K/mm3 0.0-0.2 NUCLEATED RBC # (test code=NRBC#) 0.00 K/mm3 0.0-0.1 MANUAL DIFF REQUIRED (test code=MDIFF) YES STAIN ACCEPTABILITY (test code=STN ACCEPTABLE) TOTAL CELLS COUNTED (test code=TCC) #CELLS SEGMENTED NEUTROPHILS (test code=SEG) % 39-69 LYMPHOCYTE (test code=LYMPH) % 25-55 MONOCYTE (test code=MON) % 0-10 MORPHOLOGY COMMENT (test code=MOC) PLATELET ESTIMATE (test code=PLTEST) PLATELET MORPHOLOGY (test code=PLTMORPH) CBC W/AUTO [id number] 14:44:00 Test Item Value Reference Range Comments WHITE BLOOD CELL (test code=WBC) K/mm3 4.5-12.5 RED BLOOD CELL (test code=RBC) mill/mm3 3.7-5.2 HEMOGLOBIN (test code=HGB) gram/dL 11.5-15.5 HEMATOCRIT (test code=HCT) 37.6 % 36.0-46.0 MEAN CELL VOLUME (test code=MCV) fL 80-98 MEAN CELL HGB (test code=MCH) picogram 27.0-33.0 MEAN CELL HGB CONCETRATION (test code=MCHC) gram/dL 33.0-36.0 RED CELL DISTRIBUTION WIDTH (test code=RDW) % 11.6-16.2 RED CELL DISTRIBUTION WIDTH SD (test code=RDW-SD) fL 37.0-51.0 PLATELET COUNT (test code=PLT) K/mm3 150-450 MEAN PLATELET VOLUME (test code=MPV) fL 6.7-11.0 NEUTROPHIL % (test code=NT%) % 39.0-69.0 IMMATURE GRANULOCYTE % (test code=IG%) % 0.0-5.0 LYMPHOCYTE % (test code=LY%) % 25.0-55.0 MONOCYTE % (test code=MO%) % 0.0-10.0 EOSINOPHIL % (test code=EO%) % 0.0-5.0 BASOPHIL % (test code=BA%) % 0.0-1.0 NEUTROPHIL # (test code=NT#) K/mm3 1.8-7.7 LYMPHOCYTE # (test code=LY#) K/mm3 1.0-5.0 MONOCYTE # (test code=MO#) K/mm3 0-0.8 EOSINOPHIL # (test code=EO#) K/mm3 0.0-0.5 BASOPHIL # (test code=BA#) K/mm3 0.0-0.2 CBC W/MANUAL [id number] 14:44:00 Test Item Value Reference Range Comments WHITE BLOOD CELL (test code=WBC) 5.4 K/mm3 4.5-12.5 RED BLOOD CELL (test code=RBC) 3.91 mill/mm3 3.7-5.2 HEMOGLOBIN (test code=HGB) 11.3 gram/dL 11.5-15.5 HEMATOCRIT (test code=HCT) 37.6 % 36.0-46.0 MEAN CELL VOLUME (test code=MCV) 96.2 fL 80-98 MEAN CELL HGB (test code=MCH) 28.9 picogram 27.0-33.0 MEAN CELL HGB CONCETRATION (test code=MCHC) 30.1 gram/dL 33.0-36.0 RED CELL DISTRIBUTION WIDTH (test code=RDW) 12.5 % 11.6-16.2 RED CELL DISTRIBUTION WIDTH SD (test 43.9 fL 37.0-51.0 code=RDW-SD) PLATELET COUNT (test code=PLT) 285 K/mm3 150-450 MEAN PLATELET VOLUME (test code=MPV) 9.5 fL 6.7-11.0 IMMATURE GRANULOCYTE % (test code=IG%) 0.2 % 0.0-5.0 NUCLEATED RBC % (test code=NRBC%) 0.0 % 0-0 NEUTROPHIL # (test code=NT#) 2.51 K/mm3 1.8-7.7 IMMATURE GRANULOCYTE # (test code=IG#) 0.01 x10 3/uL 0-0.03 LYMPHOCYTE # (test code=LY#) 2.27 K/mm3 1.0-5.0 MONOCYTE # (test code=MO#) 0.36 K/mm3 0-0.8 EOSINOPHIL # (test code=EO#) 0.24 K/mm3 0.0-0.5 BASOPHIL # (test code=BA#) 0.04 K/mm3 0.0-0.2 NUCLEATED RBC # (test code=NRBC#) 0.00 K/mm3 0.0-0.1 MANUAL DIFF REQUIRED (test code=MDIFF) YES STAIN ACCEPTABILITY (test code=STN ACCEPTABLE) TOTAL CELLS COUNTED (test code=TCC) #CELLS SEGMENTED NEUTROPHILS (test code=SEG) % 39-69 LYMPHOCYTE (test code=LYMPH) % 25-55 MONOCYTE (test code=MON) % 0-10 EOSINOPHIL (test code=EOS) % 0.0-5.0 CABOT RINGS (test code=CAB) MORPHOLOGY COMMENT (test code=MOC) PLATELET ESTIMATE (test code=PLTEST) PLATELET MORPHOLOGY (test code=PLTMORPH) CBC W/MANUAL [id number] 14:44:00 Test Item Value Reference Range Comments WHITE BLOOD CELL (test code=WBC) 5.4 K/mm3 4.5-12.5 RED BLOOD CELL (test code=RBC) 3.91 mill/mm3 3.7-5.2 HEMOGLOBIN (test code=HGB) 11.3 gram/dL 11.5-15.5 HEMATOCRIT (test code=HCT) 37.6 % 36.0-46.0 MEAN CELL VOLUME (test code=MCV) 96.2 fL 80-98 MEAN CELL HGB (test code=MCH) 28.9 picogram 27.0-33.0 MEAN CELL HGB CONCETRATION (test code=MCHC) 30.1 gram/dL 33.0-36.0 RED CELL DISTRIBUTION WIDTH (test code=RDW) 12.5 % 11.6-16.2 RED CELL DISTRIBUTION WIDTH SD (test 43.9 fL 37.0-51.0 code=RDW-SD) PLATELET COUNT (test code=PLT) 285 K/mm3 150-450 MEAN PLATELET VOLUME (test code=MPV) 9.5 fL 6.7-11.0 IMMATURE GRANULOCYTE % (test code=IG%) 0.2 % 0.0-5.0 NUCLEATED RBC % (test code=NRBC%) 0.0 % 0-0 NEUTROPHIL # (test code=NT#) 2.51 K/mm3 1.8-7.7 IMMATURE GRANULOCYTE # (test code=IG#) 0.01 x10 3/uL 0-0.03 LYMPHOCYTE # (test code=LY#) 2.27 K/mm3 1.0-5.0 MONOCYTE # (test code=MO#) 0.36 K/mm3 0-0.8 EOSINOPHIL # (test code=EO#) 0.24 K/mm3 0.0-0.5 BASOPHIL # (test code=BA#) 0.04 K/mm3 0.0-0.2 NUCLEATED RBC # (test code=NRBC#) 0.00 K/mm3 0.0-0.1 MANUAL DIFF REQUIRED (test code=MDIFF) YES STAIN ACCEPTABILITY (test code=STN ACCEPTABLE) TOTAL CELLS COUNTED (test code=TCC) #CELLS SEGMENTED NEUTROPHILS (test code=SEG) % 39-69 LYMPHOCYTE (test code=LYMPH) % 25-55 MONOCYTE (test code=MON) % 0-10 EOSINOPHIL (test code=EOS) % 0.0-5.0 CABOT RINGS (test code=CAB) MORPHOLOGY COMMENT (test code=MOC) PLATELET ESTIMATE (test code=PLTEST) PLATELET MORPHOLOGY (test code=PLTMORPH)
[2019-02-08 19:57] LABS: Absolute Lymphocytes (CBC) 2.2 K/uL (0.7-4.9); Basophils % 0.9 % (0-1.3); Hematocrit 35.6 % (36.0-45.0); Lymphocytes % 39.1 % (15.3-44.8); MPV 8.1 fL (7.6-11.3); RBC Red Blood Cell Count 3.88 M/uL (3.86-4.86)
[2019-02-08 20:14] LABS: ALT/SGPT 32 U/L (12-78); AST/SGOT 22 U/L (15-37); Albumin 4.3 g/dL (3.4-5.0); Alkaline Phosphatase 77 U/L (45-117); BUN Blood Urea Nitrogen 16 mg/dL (7-18); Bicarbonate 26 mmol/L (21-32); Bilirubin Direct < 0.1 mg/dL (0-0.2); Bilirubin Total 0.4 mg/dL (0.2-1.0); Glucose Level 119 mg/dL (74-106); Lipase 216 U/L (73-393); Potassium 4.1 mmol/L (3.5-5.1); Protein, Total 7.8 g/dL (6.4-8.2); Sodium Level 139 mmol/L (136-145)
[2019-02-08] MEDS ORDERED: NA CHLORIDE 0.9% 1,000 ML ONE (20:24)
[2019-02-08] MEDS ORDERED: ONDANSETRON 4 MG/2 ML VIAL ONE (20:24)
[2019-02-08] MEDS ORDERED: KETOROLAC 30 MG/ML INJ ONE (20:24)
--- NOTE | 2019-02-08 20:56 | RAD REPORT ---
EXAM DESCRIPTION: CT - Head Brain Wo Cont - 02/08/2019 8:33 pm CLINICAL HISTORY: Severe headache, nausea, dizziness COMPARISON: CT June 29, 2018 TECHNIQUE: Axial 5 mm thick images of the head were obtained without IV contrast. All CT scans are performed using dose optimization technique as appropriate and may include automated exposure control or mA/KV adjustment according to patient size. FINDINGS: No intracranial hemorrhage, mass, edema or shift of mid-line structures. No acute infarcti on changes seen. No abnormal extra-axial fluid collections. Ventricles are normal. Physiologic calcif ications are present. Intracranial findings match comparison. Mastoid air cells and visualized portions of the paranasal sinuses are clear. No acute bony findings. IMPRESSION: Negative non-contrast CT head examination.
[2019-02-08] MEDS ORDERED: MORPHINE 4 MG/ML SYR ONE (21:29)
--- NOTE | 2019-02-08 22:29 | EDPHYS ---
Physician Documentation [facility] Name: Orly Henderson Age: 58 yrs Sex: Female : 1960 Arrival Date: 02/08/2019 Time: 19:15 Bed 4 Private MD: ED Physician Kalyan Sanchez HPI: 02/09 03:32 This 58 yrs old Unknown Female presents to ER via Wheelchair with complaints of tw4 Headache, Weakness, Nausea. 03:32 The patient complains of pain to the forehead, right eye and left eye. The patient tw4 describes the headache as pounding, a pressure. Onset: The symptoms/episode began/occurred today. Associated signs and symptoms: Pertinent positives: nausea, vomiting. Severity of symptoms: At its worst the pain was moderate, in the emergency department the pain is unchanged. Headache History: Denies prior headaches. The symptoms are alleviated by nothing. the symptoms are aggravated by nothing. The patient has not experienced similar symptoms in the past. Historical: - Allergies: 02/08 19:30 Benadryl IV; lp1 19:30 Bioxan; lp1 19:30 Flagyl; lp1 - Home Meds: 19:30 alendronate 70 mg Oral tab 1 tab once wkly [Active]; buspirone 15 mg Oral tab 0.5 tab 2 lp1 times per day [Active]; meloxicam 7.5 mg Oral tab 1 tab once daily [Active]; pantoprazole 40 mg Oral TbEC 1 tab once daily [Active]; rosuvastatin 5 mg Oral tab 1 tab once daily [Active]; sucralfate 1 gram Oral tab 1 tab 4 times per day [Active]; tizanidine 4 mg Oral cap 1 cap daily [Active]; topiramate 25 mg Oral cpSP 2 caps 2 times per day [Active]; venlafaxine 150 mg Oral cp24 1 cap once daily [Active]; Vitamin D3 1,000 unit Oral cap [Active]; - PMHx: 19:30 Arthritis; Bipolar disorder; Fibromyalgia; Hernia; High Cholesterol; Mitral Prolapse; lp1 Osteoporosis; Ulcers; GERD; - PSHx: 19:30 Tonsillectomy; Hysterectomy; Cholecystectomy; lp1 - Immunization history:: Adult Immunizations up to date. - Social history:: Smoking status: Patient uses tobacco products, smokes one-half pack cigarettes per day. - Ebola Screening: : No symptoms or risks identified at this time. ROS: 02/09 03:32 Constitutional: Negative for fever, chills, and weight loss, Eyes: Negative for injury, tw4 pain, redness, and discharge, Cardiovascular: Negative for chest pain, palpitations, and edema, Respiratory: Negative for shortness of breath, cough, wheezing, and pleuritic chest pain, Abdomen/GI: Negative for abdominal pain, nausea, vomiting, diarrhea, and constipation, : Negative for injury, bleeding, discharge, and swelling, MS/Extremity: Negative for injury and deformity, Skin: Negative for injury, rash, and discoloration. Neuro: Positive for headache, Negative for altered mental status, dizziness, gait disturbance, seizure activity, speech changes, syncope, near syncope. Exam: 03:32 Constitutional: This is a well developed, well nourished patient who is awake, alert, tw4 and in no acute distress. Head/Face: Normocephalic, atraumatic. Chest/axilla: Normal chest wall appearance and motion. Nontender with no deformity. No lesions are appreciated. Cardiovascular: Regular rate and rhythm with a normal S1 and S2. No gallops, murmurs, or rubs. Normal PMI, no JVD. No pulse deficits. Respiratory: Lungs have equal breath sounds bilaterally, clear to auscultation and percussion. No rales, rhonchi or wheezes noted. No increased work of breathing, no retractions or nasal flaring. Abdomen/GI: Soft, non-tender, with normal bowel sounds. No distension or tympany. No guarding or rebound. No evidence of tenderness throughout. MS/ Extremity: Pulses equal, no cyanosis. Neurovascular intact. Full, normal range of motion. Neuro: Awake and alert, GCS 15, oriented to person, place, time, and situation. Cranial nerves II-XII grossly intact. Motor strength 5/5 in all extremities. Sensory grossly intact. Cerebellar exam normal. Normal gait. Vital Signs: 02/08 19:28 BP 134 / 78; Pulse 87; Resp 18; Temp 98.5(O); Pulse Ox 100% on R/A; Weight 71.21 kg; lp1 Height 5 ft. 7 in. (170.18 cm); Pain 9/10; 21:00 BP 110 / 53; Pulse 85; Resp 16; Pulse Ox 98% ; Pain 5/10; rr5 21:25 BP 115 / 75; Pulse 80; Resp 17; Pulse Ox 99% on R/A; Pain 6/10; rr5 22:07 BP 123 / 79; Pulse 70; Resp 16; Pulse Ox 99% ; rr5 22:42 BP 110 / 72; Pulse 75; Resp 17; Temp 98.2; Pulse Ox 99% ; Pain 0/10; rr5 19:28 Body Mass Index 24.59 (71.21 kg, 170.18 cm) lp1 Silex Coma Score: 02/09 03:32 Eye Response: spontaneous(4). Verbal Response: oriented(5). Motor Response: obeys tw4 commands(6). Total: 15. MDM: 02/08 19:32 Patient medically screened. tw4 19:38 Patient medically screened. tw4 02/09 03:32 Differential diagnosis: cluster headache, hypertensive headache, migraine, sinusitis, tw4 subarachnoid bleed, subdural hematoma, temporal arteritis, tension headache, vasomotor headache. Data reviewed: vital signs, nurses notes. Data reviewed: lab test result(s), CBC, white blood cell count, hemoglobin, hematocrit, platelets, electrolytes, sodium, potassium, chloride, serum bicarbonate, BUN, creatinine, serum glucose, hepatic panel. Data interpreted: Pulse oximetry: Interpretation: normal. Counseling: I had a detailed discussion with the patient and/or guardian regarding: the historical points, exam findings, and any diagnostic results supporting the discharge/admit diagnosis, lab results, radiology results. Medication response: morphine relieved the patient's pain. Symptoms have resolved. Response to treatment: and as a result, I will discharge patient. Special discussion: I discussed with the patient/guardian in detail that at this point there is no indication for admission to the hospital. It is understood, however, that if the symptoms persist or worsen the patient needs to return immediately for re-evaluation. 02/08 19:32 Order name: Basic Metabolic Panel; Complete Time: 20:21 tw4 02/08 20:21 Interpretation: Normal except: CL 108; GLUC 119; GFR 64. tw4 02/08 19:32 Order name: CBC with Diff; Complete Time: 20:21 tw4 02/08 20:21 Interpretation: Normal except: HCT 35.6. tw4 02/08 19:32 Order name: Creatinine for Radiology; Complete Time: 20:21 tw4 02/08 19:32 Order name: Hepatic Function; Complete Time: 20:21 tw4 02/08 20:22 Interpretation: Within normal limits. tw4 02/08 19:32 Order name: Lipase; Complete Time: 20:21 tw4 02/08 20:20 Order name: CT Head Brain wo Cont; Complete Time: 22:27 tw4 02/08 19:32 Order name: IV Saline Lock; Complete Time: 19:45 tw4 02/08 19:32 Order name: Labs collected and sent; Complete Time: 19:45 tw4 Administered Medications: 02/08 20:29 Drug: Zofran 4 mg Route: IVP; Site: left antecubital; rr5 21:30 Follow up: Response: No adverse reaction; Marked relief of symptoms rr5 20:29 Drug: NS 0.9% 1000 ml Route: IV; Rate: 1 bolus; Site: left antecubital; rr5 22:00 Follow up: Response: No adverse reaction; IV Status: Completed infusion; IV Intake: rr5 1000ml 20:31 Drug: TORadol 30 mg Route: IVP; Site: left antecubital; rr5 21:30 Follow up: Response: No adverse reaction; Marked relief of symptoms rr5 21:33 Drug: morphine 4 mg {Note: rass 0.} Route: IVP; Site: left antecubital; rr5 22:30 Follow up: Response: No adverse reaction; Marked relief of symptoms; RASS: Alert and rr5 Calm (0) Disposition: 02/08/19 22:28 Discharged to Home. Impression: Migraine without aura, intractable, without status migrainosus. - Condition is Stable. - Discharge Instructions: Migraine Headache, Recurrent Migraine Headache, Migraine Headache, [id number]. - Prescriptions for Fiorinal 50- 325-40 mg Oral Capsule - take 1 capsule by ORAL route every 4 hours As needed - not to exceed 6 capsules per day; 20 capsule. Zofran 4 mg Oral Tablet - take 1 tablet by ORAL route every 12 hours As needed; 6 tablet. - Medication Reconciliation Form, Thank You Letter, Antibiotic Education, Prescription Opioid Use form. - Follow up: Private Physician; When: Upon discharge from the Emergency Department; Reason: Recheck today's complaints, Continuance of care. - Problem is an ongoing problem. - Symptoms have improved. Signatures: Dispatcher [employer] EDMS Joy Horan RN RN lp1 Joe Andersen RN RN jb4 Kalyan Sanchez MD MD tw4 Yared Morrison RN RN rr5 Corrections: (The following items were deleted from the chart) 22:45 22:28 02/08/2019 22:28 Discharged to Home. Impression: Migraine without aura, rr5 intractable, without status migrainosus. Condition is Stable. Forms are Medication Reconciliation Form, Thank You Letter, Antibiotic Education, Prescription Opioid Use. Follow up: Private Physician; When: Upon discharge from the Emergency Department; Reason: Recheck today's complaints, Continuance of care. Problem is an ongoing problem. Symptoms have improved. tw4
--- NOTE | 2019-02-08 22:29 | ER ---
Nurse's Notes [facility] Name: Orly Henderson Age: 58 yrs Sex: Female : 1960 Arrival Date: 02/08/2019 Time: 19:15 Bed 4 Private MD: Diagnosis: Migraine without aura, intractable, without status migrainosus Presentation: 02/08 19:27 Presenting complaint: Patient states: Headache all day today, became severe about an lp1 hour ago, dizziness, nausea, generalized weakness, light sensitivity;. Transition of care: patient was not received from another setting of care. Onset of symptoms was February 08, 2019. Risk Assessment: Do you want to hurt yourself or someone else? Patient reports no desire to harm self or others. Initial Sepsis Screen: Does the patient meet any 2 criteria? No. Patient's initial sepsis screen is negative. Does the patient have a suspected source of infection? No. Patient's initial sepsis screen is negative. Care prior to arrival: None. 19:27 Method Of Arrival: Wheelchair lp1 19:27 Acuity: ANDREINA 3 lp1 Triage Assessment: 19:35 Pain: Also complains of photophobia. rr5 19:35 Headache History: The patient has had previous headaches and this one is more severe rr5 than previous episodes. General: Appears in no apparent distress. uncomfortable. General: Behavior is calm, cooperative, appropriate for age. Pain: Complains of pain in head. Historical: - Allergies: 19:30 Benadryl IV; lp1 19:30 Bioxan; lp1 19:30 Flagyl; lp1 - Home Meds: 19:30 alendronate 70 mg Oral tab 1 tab once wkly [Active]; buspirone 15 mg Oral tab 0.5 tab 2 lp1 times per day [Active]; meloxicam 7.5 mg Oral tab 1 tab once daily [Active]; pantoprazole 40 mg Oral TbEC 1 tab once daily [Active]; rosuvastatin 5 mg Oral tab 1 tab once daily [Active]; sucralfate 1 gram Oral tab 1 tab 4 times per day [Active]; tizanidine 4 mg Oral cap 1 cap daily [Active]; topiramate 25 mg Oral cpSP 2 caps 2 times per day [Active]; venlafaxine 150 mg Oral cp24 1 cap once daily [Active]; Vitamin D3 1,000 unit Oral cap [Active]; - PMHx: 19:30 Arthritis; Bipolar disorder; Fibromyalgia; Hernia; High Cholesterol; Mitral Prolapse; lp1 Osteoporosis; Ulcers; GERD; - PSHx: 19:30 Tonsillectomy; Hysterectomy; Cholecystectomy; lp1 - Immunization history:: Adult Immunizations up to date. - Social history:: Smoking status: Patient uses tobacco products, smokes one-half pack cigarettes per day. - Ebola Screening: : No symptoms or risks identified at this time. Screenin:30 Abuse screen: Denies threats or abuse. Denies injuries from another. Nutritional lp1 screening: No deficits noted. Tuberculosis screening: No symptoms or risk factors identified. 19:35 Fall Risk IV access (20 points). Total Stevens Fall Scale indicates No Risk (0-24 pts). rr5 Assessment: 19:35 General: Appears in no apparent distress. uncomfortable, Behavior is calm, cooperative, rr5 appropriate for age, Reports light sensitivity. Pain: Complains of pain in head. Pain: Pain does not radiate. Pain currently is 9 out of 10 on a pain scale. Quality of pain is described as aching, Pain began gradually, Is intermittent. Neuro: Level of Consciousness is awake, alert, obeys commands, Oriented to person, place, time, situation, Appropriate for age Moves all extremities. Full function Speech is normal, Facial symmetry appears normal, Reports headache weakness. Cardiovascular: Capillary refill < 3 seconds Patient's skin is warm and dry. Respiratory: Airway is patent Respiratory effort is even, unlabored, Respiratory pattern is regular, symmetrical. GI: Reports nausea. : No signs and/or symptoms were reported regarding the genitourinary system. EENT: No signs and/or symptoms were reported regarding the EENT system. Derm: Skin is intact, is healthy with good turgor, Skin temperature is warm. Musculoskeletal: Circulation, motion, and sensation intact. Capillary refill < 3 seconds. 20:40 Reassessment: Patient appears in no apparent distress at this time. Patient and/or cc3 family updated on plan of care and expected duration. Pain level reassessed. Patient is alert, oriented x 3, equal unlabored respirations, skin warm/dry/pink. Patient came back from CT scan department, awaiting result. 21:25 Reassessment: complaints of head ache hit again as verbalized by the patient. ED rr5 provider informed with order made and carried out. 21:25 Pain: Pain currently is 6.5 out of 10 on a pain scale. rr5 22:00 Reassessment: Patient appears in no apparent distress at this time. Patient is alert, rr5 oriented x 3, equal unlabored respirations, skin warm/dry/pink. resting on bed vitally stable, breathing spontaneously at room air. 22:24 Reassessment: Patient appears in no apparent distress at this time. Patient is alert, rr5 oriented x 3, equal unlabored respirations, skin warm/dry/pink. Patient denies pain at this time. Patient states feeling better. Patient states symptoms have improved. 22:40 Reassessment: Patient appears in no apparent distress at this time. Patient is alert, rr5 oriented x 3, equal unlabored respirations, skin warm/dry/pink. discharge instruction given and explained without complaints made, verbalized understanding. Vital Signs: 19:28 BP 134 / 78; Pulse 87; Resp 18; Temp 98.5(O); Pulse Ox 100% on R/A; Weight 71.21 kg; lp1 Height 5 ft. 7 in. (170.18 cm); Pain 9/10; 21:00 BP 110 / 53; Pulse 85; Resp 16; Pulse Ox 98% ; Pain 5/10; rr5 21:25 BP 115 / 75; Pulse 80; Resp 17; Pulse Ox 99% on R/A; Pain 6/10; rr5 22:07 BP 123 / 79; Pulse 70; Resp 16; Pulse Ox 99% ; rr5 22:42 BP 110 / 72; Pulse 75; Resp 17; Temp 98.2; Pulse Ox 99% ; Pain 0/10; rr5 19:28 Body Mass Index 24.59 (71.21 kg, 170.18 cm) lp1 Vandana Coma Score: 02/09 03:32 Eye Response: spontaneous(4). Verbal Response: oriented(5). Motor Response: obeys tw4 commands(6). Total: 15. ED Course: 02/08 19:15 Patient arrived in ED. cf2 19:28 Triage completed. lp1 19:28 Arm band placed on left wrist. lp1 19:30 Kalyan Sanchez MD is Attending Physician. tw4 19:30 Patient has correct armband on for positive identification. Placed in gown. Bed in low lp1 position. head automatic sawyer on. Pulse ox on. NIBP on. 19:35 Yared Morrison RN is Primary Nurse. rr5 19:40 Inserted saline lock: 20 gauge in left antecubital area, using aseptic technique. Blood cc3 collected. 20:[address] via stretcher. nj 20:32 CT completed. Patient tolerated procedure well. Patient moved back from CT. nj 20:33 CT Head Brain wo Cont In Process Unspecified. EDMS 21:35 No provider procedures requiring assistance completed. rr5 22:41 IV discontinued, intact, bleeding controlled, No redness/swelling at site. Pressure cc3 dressing applied. Administered Medications: 20:29 Drug: Zofran 4 mg Route: IVP; Site: left antecubital; rr5 21:30 Follow up: Response: No adverse reaction; Marked relief of symptoms rr5 20:29 Drug: NS 0.9% 1000 ml Route: IV; Rate: 1 bolus; Site: left antecubital; rr5 22:00 Follow up: Response: No adverse reaction; IV Status: Completed infusion; IV Intake: rr5 1000ml 20:31 Drug: TORadol 30 mg Route: IVP; Site: left antecubital; rr5 21:30 Follow up: Response: No adverse reaction; Marked relief of symptoms rr5 21:33 Drug: morphine 4 mg {Note: rass 0.} Route: IVP; Site: left antecubital; rr5 22:30 Follow up: Response: No adverse reaction; Marked relief of symptoms; RASS: Alert and rr5 Calm (0) Intake: 22:00 IV: 1000ml; Total: 1000ml. rr5 Outcome: 22:28 Discharge ordered by . tw4 22:43 Discharged to home ambulatory, with family. rr5 22:43 Condition: stable 22:43 Discharge instructions given to patient, Instructed on discharge instructions, follow up and referral plans. medication usage, Demonstrated understanding of instructions, follow-up care, medications, Prescriptions given X 2. 22:45 Patient left the ED. rr5 Signatures: Dispatcher [employer] EDMS Joy Horan RN RN lp1 Robin Thompson Terrence, MD MD tw4 Magy Amos cc3 Yared Morrison, RN RN rr5 Elliott Wolff cf2 Corrections: (The following items were deleted from the chart) 21:35 21:25 BP 115 / 75; Pulse 80bpm; Resp 17bpm; Pulse Ox 99% RA; rr5 rr5
[2019-02-08 23:13] VITALS: O2SAT 99
[2019-02-08 23:15] VITALS: BP 110/72; TEMP 98.2
== END 2019-02-08 22:45 | disposition home or self-care (01) ==
LOC: ER 19:13
DX: G43.019 Migraine without aura, intractable, without status migrainosus (principal); F17.210 Nicotine dependence, cigarettes, uncomplicated; E78.00 Pure hypercholesterolemia, unspecified; K21.9 Gastro-esophageal reflux disease without esophagitis; M79.7 Fibromyalgia; F31.9 Bipolar disorder, unspecified; Z88.3 Allergy status to other anti-infective agents
CPT/HCPCS: 96361; 85025; 80048; 36415; 80076; 83690; 70450; 96375; 96374; 99285; J7030; J2405

== ENCOUNTER 2019-04-24 12:08 | Emergency (ER) | payer OTHER ==
--- OUTSIDE RECORDS SUMMARY | 2019-04-24 12:12 | XMS REPORT ---
:1960 [facility] Address [address] [place] [address] Care Team Providers Name Role Phone Unavailable [...] 16 00:00: 00 clarithromycin DA Active SV 416 00:00: 00 Medications This patient has no known medications. Encounters Start End Encounter Admission Attending Care Care Encounter Date/Time Date/Time Type Type Clinicians Facility Department ID 2018-06-29 2018-06-29 Emergency E [facility] 7500 08:15:00 08:15:00 Results Test Description Test Time Test Comments Text Results Atomic Results Result Comments - SP VERT ANGIO UNILAT 2018-07-21 15:41:00 Name: SORAYA SHETTY [facility] : 1960 Age/S: 58 / F [address] Unit #: [id number] Loc: [place] [address] Phys: Lenin Akhtar MD Acct: [id number] Dis Date: Status: [facility] PHONE #: [phone] Exam Date: 07/14/2018 1208 FAX #: [phone] Reason: EXAMS: CPT CODE: [id number] SP VERT ANGIO UNILAT 61597 Fluoro Time: DAP (Gy m2): Air Kerma [...] in PACS. The guidewire and a 5 [place] Omni Flush catheter were advanced into the [...] vertebral arteries was performed using a 4 [place] contact center agent catheter. Magnification angiography and rotational angiography was [...] 1 Signed Report (CONTINUED) Name: SORAYA SHETTY [facility] : 1960 Age/S: 58 / F [address] Unit #: [id number] Loc: [place] [address] Phys: Lenin Akhtar MD Acct: [id number] Dis Date: Status: [facility] PHONE #: [phone] Exam Date: 07/14/20188 FAX #: [phone] Reason: EXAMS: CPT CODE: [id number] SP VERT ANGIO UNILAT 30568 Fluoro Time: DAP (Gy m2): Air Kerma [...] sec CAK : 1000.1 mGy DAP : 777486 mGy sq cm at 1541 Reported and signed by: Lenin Akhtar M.D. CC: Kiko Hendrickson MD Technologist: Ge Gould [facility] Date/Time: 07/21/2018 (8917) Jose Daniel Orig Print D/T: S: 07/21/2018 (0747) PAGE 2 Signed Report - SP VERT ANGIO UNILAT 2018-07-21 15:41:00 Name: DIOGENESSORAYA A [facility] : 1960 Age/S: 58 / F [address] [facility] Unit #: [id number] Loc: [place] [address] Phys: Lenin Akhtar MD Acct: [id number] Dis Date: Status: [facility] PHONE #: [phone] Exam Date: 07/14/2018 1208 FAX #: [phone] Reason: EXAMS: CPT CODE: [id number] SP VERT ANGIO UNILAT 41274 Fluoro Time: DAP (Gy m2): Air Kerma [...] in PACS. The guidewire and a 5 [place] Omni Flush catheter were advanced into the [...] vertebral arteries was performed using a 4 [place] contact center agent catheter. Magnification angiography and rotational angiography was [...] 1 Signed Report (CONTINUED) Name: SORAYA SHETTY [facility] : 1960 Age/S: 58 / F [address] [facility] Unit #: [id number] Loc: [place] [address] Phys: Lenin Akhtar MD Acct: [id number] Dis Date: Status: [facility] PHONE #: [phone] Exam Date: 07/14/2018 1208 FAX #: [phone] Reason: EXAMS: CPT CODE: [id number] VERT ANGIO UNILAT 89534 Fluoro Time: DAP (Gy m2): Air Kerma [...] sec CAK : 1000.1 mGy DAP : 723130 mGy sq cm at 1541 Reported and signed by: Lenin Akhtar M.D. CC: Kiko Hendrickson MD Technologist: Ge Gould [facility] Date/Time: 07/21/2018 (8339) [email or web address] Orig Print D/T: S: 07/21/2018 (8120) PAGE 2 Signed Report - SP INT CAROTID ANGIO UNI 2018-07-21 15:41:00 Name: SORAYA SHETTY [facility] : 1960 Age/S: 58 / F [address] [facility] #: [id number] Loc: [facility] [place] [address] Phys: Lenin Ahktar MD Acct: [id number] Dis Date: Status: [facility] PHONE #: [phone] Exam Date: 07/14/20188 FAX #: [phone] Reason: EXAMS: CPT CODE: [id number] INT CAROTID ANGIO UNI 14475 Fluoro Time: DAP (Gy m2): Air Kerma [...] in PACS. The guidewire and a 5 [place] Omni Flush catheter were advanced into the [...] vertebral arteries was performed using a 4 [place] contact center agent catheter. Magnification angiography and rotational angiography was [...] 1 Signed Report (CONTINUED) Name: SORAYA SHETTY [facility] SP : 1960 Age/S: 58 / F [address] [facility] Unit #: [id number] [place] [address] Phys: Lenin Akhtar MD Acct: [id number] Dis Date: Status: [facility] PHONE #: [phone] Exam Date: 07/14/2018 1202 FAX #: [phone] Reason: EXAMS: CPT CODE: [id number] SP INT CAROTID ANGIO UNI 08469 Fluoro Time: DAP (Gy m2): Air Kerma [...] sec CAK : 1000.1 mGy DAP : 396105 mGy sq cm at 1541 Reported and signed by: Lenin Akhtar M.D. CC: Kiko Hendrickson MD Technologist: Ge Gould [facility] Date/Time: 07/21/2018 (4004) [email or web address] Orig Print D/T: S: 07/21/2018 (9152) PAGE 2 Signed Report - INT CAROTID ANGIO UNI 2018-07-21 15:41:00 Name: SORAYA SHETTY [facility] : 1960 Age/S: 58 / F [address] [facility] Unit #: [id number] Loc: [place] [address] Phys: Lenin Akhtar MD Acct: [id number] Dis Date: Status: [facility] PHONE #: [phone] Exam Date: 07/14/2018 1203 FAX #: [phone] Reason: EXAMS: CPT CODE: [id number] INT CAROTID ANGIO UNI 03387 Fluoro Time: DAP (Gy m2): Air Kerma [...] in PACS. The guidewire and a 5 [place] Omni Flush catheter were advanced into the [...] vertebral arteries was performed using a 4 [place] contact center agent catheter. Magnification angiography and rotational angiography was [...] Signed Report (CONTINUED) Name: SHETTYSORAYA HUGHES Ney [facility] : 1960 Age/S: 58 / F [address] [facility] Unit #: [id number] Loc: [place] [address] Phys: Lenin Akhtar MD Acct: [id number] Dis Date: Status: [facility] PHONE #: [phone] Exam Date: 07/14/2018 1208 FAX #: [phone] Reason: EXAMS: CPT CODE: [id number] SP INT CAROTID ANGIO UNI 60423 Fluoro Time: DAP (Gy m2): Air Kerma [...] sec CAK : 1000.1 mGy DAP : 270150 mGy sq cm at 1541 Reported and signed by: Lenin Akhtar M.D. CC: Kiko Hendrickson MD Technologist: Ge Gould [facility] Date/Time: 07/21/2018 (9562) [email or web address] Orig Print D/T: S: 07/21/2018 (2227) PAGE 2 Signed Report - SP EX CAROTID ANGIO UNIL 2018-07-21 15:41:00 Name: DIOGENESSORAYA A [facility] : 1960 Age/S: 58 / F [address] [facility] Unit #: [id number] Loc: [place] [address] Phys: Lenin Akhtar MD Acct: [id number] Dis Date: Status: [facility] PHONE #: [phone] Exam Date: 07/14/2018 1208 FAX #: [phone] Reason: EXAMS: CPT CODE: [id number] SP EX CAROTID ANGIO UNIL 49170 Fluoro Time: DAP (Gy m2): Air Kerma [...] in PACS. The guidewire and a 5 [place] Omni Flush catheter were advanced into the [...] vertebral arteries was performed using a 4 [place] contact center agent catheter. Magnification angiography and rotational angiography was [...] 1 Signed Report (CONTINUED) Name: SORAYA SHETTY [facility] : 1960 Age/S: 58 / F [address] [facility] Unit #: [id number] Loc: [place] [address] Phys: Lenin Akhtar MD Acct: [id number] Dis Date: Status: [facility] PHONE #: [phone] Exam Date: 07/14/2018 1208 FAX #: [phone] Reason: EXAMS: CPT CODE: [id number] SP EX CAROTID ANGIO UNIL 90543 Fluoro Time: DAP (Gy m2): Air Kerma [...] sec CAK : 1000.1 mGy DAP : 314988 mGy sq cm at 1541 Reported and signed by: Lenin Akhtar M.D. CC: Kiko Hendrickson MD Technologist: Ge Gould [facility] Date/Time: 07/21/2018 (9590) [email or web address] Orig Print D/T: S: 07/21/2018 (6621) PAGE 2 Signed Report - SP EX CAROTID ANGIO UNIL 2018-07-21 15:41:00 Name: SORAYA SHETTY [facility] SP : 1960 Age/S: 58 / F [address] [facility] Unit #: [id number] Loc: [place] [address] Phys: Lenin Akhtar MD Acct: [id number] Dis Date: Status: [facility] PHONE #: [phone] Exam Date: 07/14/2018 1208 FAX #: [phone] Reason: EXAMS: CPT CODE: [id number] SP EX CAROTID ANGIO UNIL 57472 Fluoro Time: DAP (Gy m2): Air Kerma [...] in PACS. The guidewire and a 5 [place] Omni Flush catheter were advanced into the [...] vertebral arteries was performed using a 4 [place] contact center agent catheter. Magnification angiography and rotational angiography was [...] 1 Signed Report (CONTINUED) Name: SORAYA SHETTY [facility] : 1960 Age/S: 58 / F [address] [facility] Unit #: [id number] Loc: [place] [address] Phys: Lenin Akhtar MD Acct: [id number] Dis Date: Status: [facility] PHONE #: [phone] Exam Date: 07/14/2018 1208 FAX #: [phone] Reason: EXAMS: CPT CODE: [id number] SP EX CAROTID ANGIO UNIL 19809 Fluoro Time: DAP (Gy m2): Air Kerma [...] sec CAK : 1000.1 mGy DAP : 632154 mGy sq cm at 1541 Reported and signed by: Lenin Akhtar M.D. CC: Kiko Hendrickson MD Technologist: Ge Gould Tr[facility] Date/Time: 07/21/2018 (3467) Jose Daniel Orig Print D/T: S: 07/21/2018 (6202) PAGE 2 Signed Report - NSP THOR AORT W/ANGIO 2018-07-21 15:41:00 Name: SORAYA SHETTY [facility] : 1960 Age/S: 58 / F [address] Unit #: [id number] Loc: [place] [address] Phys: Lenin Akhtar MD Acct: [id number] Dis Date: Status: [facility] PHONE #: [phone] Exam Date: 07/14/2018 1208 FAX #: [phone] Reason: EXAMS: CPT CODE: [id number] NSP THOR AORT W/ANGIO 74305 Fluoro Time: 384 DAP (Gy m2): 741230 Air Kerma (mGy): 1000. EXAM: Angiography of [...] in PACS. The guidewire and a 5 [place] Omni Flush catheter were advanced into the [...] vertebral arteries was performed using a 4 [place] contact center agent catheter. Magnification angiography and rotational angiography was [...] 1 Signed Report (CONTINUED) Name: SORAYA SHETTY [facility] : 1960 Age/S: 58 / F [address] [facility] Unit #: [id number] Loc: [place] [address] Phys: Lenin Akhtar MD Acct: [id number] Dis Date: Status: [facility] PHONE #: [phone] Exam Date: 07/14/2018 1207 FAX #: [phone] Reason: EXAMS: CPT CODE: [id number] NSP THOR AORT W/ANGIO 49803 Fluoro Time: 384 DAP (Gy m2): 795074 Air Kerma (mGy): 1000. <Continued> the right [...] sec CAK : 1000.1 mGy DAP : 298347 mGy sq cm at 1541 Reported and signed by: Lenin Akhtar M.D. CC: Kiko Hendrickson MD Technologist: Ge Gould [facility] Date/Time: 07/21/2018 (1541) [email or web address] Orig Print D/T: S: 07/21/2018 (2631) PAGE 2 Signed Report CBC W/MANUAL DIFF [...] FORMS (test code=IMMAT) 0 % COMPREHENSIVE METABOLIC [id number] 15:05:00 Test Item Value Reference Range Comments [...] due to change in reagent. COMPREHENSIVE METABOLIC [id number] 14:58:00 Test Item Value Reference Range Comments [...] PHOSPHATASE TOTAL (test code=ALKP) IUnit/L 45-117 PROTHROMBIN [id number] 14:56:00 Test Item Value Reference Range Comments [...] Mechanical prosthetic heart valves (2.5-3.5) THROMBOPLASTIN TIME [id number] 14:56:00 Test Item Value Reference Range Comments THROMBOPLASTIN TIME PARTIAL (test code=PTT) 28.6 seconds 25.0-36.5 CBC W/MANUAL [id number] 14:45:00 Test Item Value Reference Range Comments [...] code=PLTEST) PLATELET MORPHOLOGY (test code=PLTMORPH) CBC W/MANUAL [id number] 14:45:00 Test Item Value Reference Range Comments [...] code=PLTEST) PLATELET MORPHOLOGY (test code=PLTMORPH) CBC W/MANUAL [id number] 14:45:00 Test Item Value Reference Range Comments [...] code=PLTEST) PLATELET MORPHOLOGY (test code=PLTMORPH) CBC W/AUTO [id number] 14:44:00 Test Item Value Reference Range Comments [...] # (test code=BA#) K/mm3 0.0-0.2 CBC W/MANUAL [id number] 14:44:00 Test Item Value Reference Range Comments [...] code=PLTEST) PLATELET MORPHOLOGY (test code=PLTMORPH) CBC W/MANUAL [id number] 14:44:00 Test Item Value Reference Range Comments [...]
[2019-04-24] MEDS ORDERED: NA CHLORIDE 0.9% 1,000 ML ONE (12:43)
[2019-04-24 13:01] LABS: Absolute Lymphocytes (CBC) 2.1 K/uL (0.7-4.9); Basophils % 1.1 % (0-1.3); Hematocrit 34.3 % (36.0-45.0); Lymphocytes % 39.7 % (15.3-44.8); MPV 8.4 fL (7.6-11.3); RBC Red Blood Cell Count 3.76 M/uL (3.86-4.86)
[2019-04-24 13:14] LABS: Albumin 4.1 g/dL (3.4-5.0); Bilirubin Direct 0.1 mg/dL (0-0.2); Bilirubin Total 0.3 mg/dL (0.2-1.0)
[2019-04-24 13:47] LABS: Urine Blood TRACE (NEG); Urine Glucose NEGATIVE (NEG); Urine Protein NEGATIVE (NEG); Urine Specific Gravity 1.015 (1.005-1.030)
[2019-04-24 13:50] LABS: Urine Bacteria <20 /HPF (<20); Urine Culture Reflex Order NOT NEEDED; Urine RBC <5 /HPF (NONE SEEN)
--- NOTE | 2019-04-24 13:54 | RAD REPORT ---
EXAM DESCRIPTION: CT - Abdomen Pelvis W Contrast - 04/24/2019 1:29 pm CLINICAL HISTORY: abdomen pain COMPARISON: Abdomen Pelvis W Contrast dated 06/21/2018 TECHNIQUE: Biphasic, helical CT imaging of the abdomen and pelvis was performed following 100 ml non -ionic IV contrast. No oral contrast given. All CT scans are performed using dose optimization technique as appropriate and may include automated exposure control or mA/KV adjustment according to patient size. FINDINGS: No suspicious findings in the lung bases. The liver, spleen, and pancreas show no suspicious findings. Cholecystectomy clips present. No biliar y tree dilatation. Symmetric renal function is seen with no hydronephrosis or suspicious renal mass. No pyelonephritis o r acute parenchymal process. No bladder abnormalities. No adrenal abnormalities. Benign cyst present left kidney. No dilated bowel loops or bowel wall thickening. No appendicitis findings. No active colon process se en. No free air, free fluid or inflammatory stranding. No hernia, mass or bulky lymphadenopathy. No acute bone findings seen. Partial compression of T11 appears old. IMPRESSION: Contrast enhanced CT abdomen and pelvis showing no acute finding. No suspicious change from comparison.
--- NOTE | 2019-04-24 16:06 | ER ---
Nurse's Notes [facility] Name: Orly Henderson Age: 59 yrs Sex: Female : 1960 Arrival Date: 04/24/2019 Time: 12:10 Bed 25 Private MD: Diagnosis: Lower abdominal pain, unspecified Presentation: 04/24 12:11 Presenting complaint: Patient states: "i had an angiogram July 14 last year and aj1 they put a button in and said my pain would be gone in 6 months to a year, but I have been having pain for 6 months and its just getting worse" Patient states that she saw her doctor last week, and was advised to schedule a CT scan, but she never scheduled it and now she's hurting so bad that she feels she cannot wait. Transition of care: patient was not received from another setting of care. Onset of symptoms was 2018. Risk Assessment: Do you want to hurt yourself or someone else? Patient reports no desire to harm self or others. Initial Sepsis Screen: Does the patient meet any 2 criteria? No. Patient's initial sepsis screen is negative. Does the patient have a suspected source of infection? No. Patient's initial sepsis screen is negative. Care prior to arrival: None. 12:11 Method Of Arrival: Wheelchair aj1 12:11 Acuity: ANDREINA 3 aj1 Triage Assessment: 12:18 General: Appears in no apparent distress. Behavior is calm, cooperative, appropriate aj1 for age. Pain: Complains of pain in right lower quadrant. Neuro: Level of Consciousness is awake, alert, obeys commands. Cardiovascular: Patient's skin is warm and dry. Respiratory: Airway is patent Respiratory effort is even, unlabored, Respiratory pattern is regular, symmetrical. GI: Reports lower abdominal pain. Historical: - Allergies: 12:18 Benadryl IV; aj1 12:18 Flagyl; aj1 12:18 Bioxan; aj1 12:18 Ascomp with Codeine; aj1 - Home Meds: 12:18 alendronate 70 mg Oral tab 1 tab once wkly [Active]; buspirone 15 mg Oral tab 0.5 tab 2 aj1 times per day [Active]; meloxicam 7.5 mg Oral tab 1 tab once daily [Active]; pantoprazole 40 mg Oral TbEC 1 tab once daily [Active]; rosuvastatin 5 mg Oral tab 1 tab once daily [Active]; sucralfate 1 gram Oral tab 1 tab 4 times per day [Active]; tizanidine 4 mg Oral cap 1 cap daily [Active]; topiramate 25 mg Oral cpSP 2 caps 2 times per day [Active]; venlafaxine 150 mg Oral cp24 1 cap once daily [Active]; Vitamin D3 1,000 unit Oral cap [Active]; - PMHx: 12:18 Arthritis; Bipolar disorder; Fibromyalgia; GERD; Hernia; High Cholesterol; Mitral aj1 Prolapse; Osteoporosis; Ulcers; - Immunization history:: Flu vaccine is up to date. - Coronavirus screen:: The patient has NOT traveled to [place], [place], or [place] in the past 14 days. - Social history:: Smoking status: Patient reports the use of cigarette tobacco products, smokes one-half pack cigarettes per day. - Ebola Screening: : Patient denies travel to an Ebola-affected area in the 21 days before illness onset. Screenin:33 Abuse screen: Denies threats or abuse. Denies injuries from another. Nutritional mg2 screening: No deficits noted. Tuberculosis screening: No symptoms or risk factors identified. Fall Risk None identified. Assessment: 12:32 General: Appears in no apparent distress. comfortable, Behavior is calm, cooperative. mg2 Pain: Complains of pain in abdomen. Neuro: Level of Consciousness is awake, alert, obeys commands, Oriented to person, place, time, situation. Cardiovascular: Capillary refill < 3 seconds Patient's skin is warm and dry. Respiratory: Airway is patent Respiratory effort is even, unlabored, Respiratory pattern is regular, symmetrical. GI: Reports lower abdominal pain, upper abdominal pain. : No signs and/or symptoms were reported regarding the genitourinary system. EENT: No signs and/or symptoms were reported regarding the EENT system. Derm: Skin is intact, is healthy with good turgor, Skin is pink, warm \\T\\ dry. normal. Musculoskeletal: Circulation, motion, and sensation intact. Capillary refill < 3 seconds. 13:55 GI: Bowel sounds present X 4 quads. Abdomen is tender to palpation. mg2 15:43 Reassessment: Patient appears in no apparent distress at this time. Patient and/or mg2 family updated on plan of care and expected duration. Pain level reassessed. Patient is alert, oriented x 3, equal unlabored respirations, skin warm/dry/pink. 16:15 Reassessment: Patient states feeling better. mg2 Vital Signs: 12:18 BP 126 / 84; Pulse 86; Resp 18; Temp 98.6; Pulse Ox 98% on R/A; Weight 70.31 kg (R); aj1 Height 5 ft. 7 in. (170.18 cm) (R); Pain 10/10; 13:54 Pulse 68; Resp 18; Pulse Ox 100% on R/A; mg2 13:55 BP 122 / 74; mg2 15:00 BP 113 / 78; Pulse 78; Resp 18; Pulse Ox 99% on R/A; mg2 16:16 BP 108 / 65; Pulse 80; Resp 18; Temp 98; Pulse Ox 100% on R/A; mg2 12:18 Body Mass Index 24.28 (70.31 kg, 170.18 cm) aj1 ED Course: 12:10 Patient arrived in ED. fj1 12:16 Triage completed. aj1 12:18 Arm band placed on Patient placed in an exam room. aj1 12:19 Dariel Smith PA is PHCP. cp 12:19 Dariel Carson MD is Attending Physician. cp 12:24 Gio Valderrama RN is Primary Nurse. mg2 12:33 Patient has correct armband on for positive identification. Pulse ox on. NIBP on. Door mg2 closed. Warm blanket given. 12:33 No provider procedures requiring assistance completed. mg2 12:54 Inserted saline lock: 20 gauge in left antecubital area, using aseptic technique. Blood mg2 collected. 13:06 Radiology exam delayed due to lab results not completed at this time. (BUN/Creatinine). bq 13:29 CT completed. Patient tolerated procedure well. Patient moved back from CT. mw3 13:30 CT Abd/Pelvis - IV Contrast Only: lower abdomen pain In Process Unspecified. EDMS 15:49 US Pelvis Complete In Process Unspecified. EDMS 16:16 IV discontinued, intact, bleeding controlled, No redness/swelling at site. Pressure mg2 dressing applied. Administered Medications: 12:54 Drug: NS 0.9% 1000 ml Route: IV; Rate: 1000 ml/hr; Site: left antecubital; mg2 16:15 Follow up: Response: No adverse reaction; IV Status: Completed infusion; IV Intake: mg2 1000ml 16:09 Drug: TORadol - Ketorolac 15 mg Route: IVP; Site: left antecubital; mg2 16:15 Follow up: Response: No adverse reaction; Medication administered at discharge. mg2 Intake: 16:15 IV: 1000ml; Total: 1000ml. mg2 Outcome: 16:05 Discharge ordered by . cp 16:16 Discharged to home ambulatory, with family. mg2 16:16 Condition: stable 16:16 Discharge instructions given to patient, family, Instructed on discharge instructions, follow up and referral plans. medication usage, Demonstrated understanding of instructions, follow-up care, medications, Prescriptions given X 2. 16:17 Patient left the ED. mg2 Signatures: Dispatcher [employer] EDMS Josefina Mitchell RN RN aj1 Wanda Ferrell Corey, Gio Nieto cp, RN RN mg2 Gretchen Peng mw3 Julius Diaz fj1
--- NOTE | 2019-04-24 16:06 | EDPHYS ---
Physician Documentation [facility] Name: Orly Henderson Age: 59 yrs Sex: Female : 1960 Arrival Date: 04/24/2019 Time: 12:10 Bed 25 Private MD: DEBORAH Physician Dariel Carson HPI: 04/24 12:40 This 59 yrs old Unknown Female presents to ER via Wheelchair with complaints of cp Abdominal Pain. 12:40 The patient presents with abdominal pain right lower quadrant. Onset: The cp symptoms/episode began/occurred 6 month(s) ago. The symptoms do not radiate. Associated signs and symptoms: Pertinent negatives: nausea and vomiting, blood in stools, constipation, diarrhea, dysuria, fever, hematuria. The symptoms are described as constant. Modifying factors: the symptoms are aggravated by movement, pressure. Historical: - Allergies: 12:18 Benadryl IV; aj1 12:18 Flagyl; aj1 12:18 Bioxan; aj1 12:18 Ascomp with Codeine; aj1 - Home Meds: 12:18 alendronate 70 mg Oral tab 1 tab once wkly [Active]; buspirone 15 mg Oral tab 0.5 tab 2 aj1 times per day [Active]; meloxicam 7.5 mg Oral tab 1 tab once daily [Active]; pantoprazole 40 mg Oral TbEC 1 tab once daily [Active]; rosuvastatin 5 mg Oral tab 1 tab once daily [Active]; sucralfate 1 gram Oral tab 1 tab 4 times per day [Active]; tizanidine 4 mg Oral cap 1 cap daily [Active]; topiramate 25 mg Oral cpSP 2 caps 2 times per day [Active]; venlafaxine 150 mg Oral cp24 1 cap once daily [Active]; Vitamin D3 1,000 unit Oral cap [Active]; - PMHx: 12:18 Arthritis; Bipolar disorder; Fibromyalgia; GERD; Hernia; High Cholesterol; Mitral aj1 Prolapse; Osteoporosis; Ulcers; - Immunization history:: Flu vaccine is up to date. - Coronavirus screen:: The patient has NOT traveled to [place], [place], or [place] in the past 14 days. - Social history:: Smoking status: Patient reports the use of cigarette tobacco products, smokes one-half pack cigarettes per day. - Ebola Screening: : Patient denies travel to an Ebola-affected area in the 21 days before illness onset. ROS: 12:45 Constitutional: Negative for body aches, chills, fever, poor PO intake. cp 12:45 Eyes: Negative for injury, pain, redness, and discharge. cp 12:45 Cardiovascular: Negative for chest pain, palpitations. 12:45 Respiratory: Negative for cough, shortness of breath, wheezing. 12:45 Abdomen/GI: Positive for abdominal pain, Negative for nausea and vomiting, diarrhea, constipation, rectal pain, rectal bleeding. 12:45 Back: Negative for radiated pain. 12:45 : Negative for urinary symptoms, vaginal bleeding, vaginal discharge. 12:45 Skin: Negative for rash. 12:45 Neuro: Negative for altered mental status, headache, weakness. 12:45 All other systems are negative. Exam: 12:50 Constitutional: The patient appears in no acute distress, alert, awake, cp non-diaphoretic, non-toxic, well developed, well nourished. 12:50 Head/Face: Normocephalic, atraumatic. cp 12:50 Eyes: Periorbital structures: appear normal, Conjunctiva: normal, no exudate, no injection, Sclera: no appreciated abnormality, Lids and lashes: appear normal, bilaterally. 12:50 ENT: External ear(s): are unremarkable, Nose: is normal, Mouth: Lips: moist, Oral mucosa: moist, Posterior pharynx: Airway: no evidence of obstruction, patent. 12:50 Chest/axilla: Inspection: normal. 12:50 Cardiovascular: Rate: normal, Rhythm: regular. 12:50 Respiratory: the patient does not display signs of respiratory distress, Respirations: normal, labored breathing, is not present, Breath sounds: are clear throughout, no decreased breath sounds. 12:50 Abdomen/GI: Inspection: scar(s), are noted in the midline lower abdomen, Bowel sounds: active, all quadrants, Palpation: soft, in all quadrants, moderate abdominal tenderness, in the right lower quadrant, rebound tenderness, is not appreciated, voluntary guarding, is elicited in the right lower quadrant. 12:50 Back: pain, is absent, ROM is normal. 12:50 Skin: no rash present. Vital Signs: 12:18 BP 126 / 84; Pulse 86; Resp 18; Temp 98.6; Pulse Ox 98% on R/A; Weight 70.31 kg (R); aj1 Height 5 ft. 7 in. (170.18 cm) (R); Pain 10/10; 13:54 Pulse 68; Resp 18; Pulse Ox 100% on R/A; mg2 13:55 BP 122 / 74; mg2 15:00 BP 113 / 78; Pulse 78; Resp 18; Pulse Ox 99% on R/A; mg2 16:16 BP 108 / 65; Pulse 80; Resp 18; Temp 98; Pulse Ox 100% on R/A; mg2 12:18 Body Mass Index 24.28 (70.31 kg, 170.18 cm) aj1 MDM: 12:20 Patient medically screened. bill 13:00 Differential diagnosis: appendicitis, cholecystitis, Cholelithiasis, diverticulitis, cp non-specific abd pain, Pyelonephritis, Ureterolithiasis, urinary tract infection, colitis. 16:05 Data reviewed: vital signs, nurses notes, lab test result(s), radiologic studies, and cp as a result, I will discharge patient. 16:05 Counseling: I had a detailed discussion with the patient and/or guardian regarding: the cp historical points, exam findings, and any diagnostic results supporting the discharge/admit diagnosis, lab results, radiology results, the need for outpatient follow up, a family practitioner, to return to the emergency department if symptoms worsen or persist or if there are any questions or concerns that arise at home. Special discussion: Based on the patient's Hx, exam, and Dx evaluation, there is no indication for emergent surgery or inpatient Tx. It is understood by the patient/guardian that if the Sx's persist or worsen they need to return immediately for re-evaluation. 04/24 12:35 Order name: Basic Metabolic Panel; Complete Time: 13:52 cp 04/24 13:52 Interpretation: Normal except: CL 111; GFR 75. cp 04/24 12:35 Order name: CBC with Diff; Complete Time: 13:52 cp 04/24 13:52 Interpretation: Normal except: RBC 3.76; HGB 11.9; HCT 34.3. cp 04/24 12:35 Order name: Creatinine for Radiology; Complete Time: 13:52 cp 04/24 12:35 Order name: Hepatic Function; Complete Time: 13:52 cp 04/24 12:35 Order name: Lipase; Complete Time: 13:52 cp 04/24 13:52 Interpretation: Abnormal: LIP 430. cp 04/24 12:35 Order name: Urine Microscopic Only; Complete Time: 13:52 cp 04/24 12:35 Order name: IV Saline Lock; Complete Time: 12:54 cp 04/24 12:35 Order name: Labs collected and sent; Complete Time: 12:54 cp 04/24 12:35 Order name: Urine Dipstick-Ancillary (obtain specimen); Complete Time: 12:54 cp 04/24 12:35 Order name: CT Abd/Pelvis - IV Contrast Only: lower abdomen pain; Complete Time: 14:21 cp 04/24 14:22 Interpretation: Report reviewed. cp 04/24 13:01 Order name: Urine Dipstick--Ancillary (enter results); Complete Time: 13:52 ms 04/24 14:24 Order name: US Pelvis Complete cp Administered Medications: 12:54 Drug: NS 0.9% 1000 ml Route: IV; Rate: 1000 ml/hr; Site: left antecubital; mg2 16:15 Follow up: Response: No adverse reaction; IV Status: Completed infusion; IV Intake: mg2 1000ml 16:09 Drug: TORadol - Ketorolac 15 mg Route: IVP; Site: left antecubital; mg2 16:15 Follow up: Response: No adverse reaction; Medication administered at discharge. mg2 Disposition: 04/25 07:43 Co-signature as Attending Physician, Dariel Carson MD I agree with the assessment and bill plan of care. Disposition: 04/24/19 16:05 Discharged to Home. Impression: Lower abdominal pain, unspecified. - Condition is Stable. - Discharge Instructions: Abdominal Pain, Adult. - Prescriptions for Diclofenac Sodium 75 mg Oral Tablet, Delayed Release (E.C.) - take 1 tablet by ORAL route 2 times per day As needed; 15 tablet. Bentyl 20 mg Oral Tablet - take 1 tablet by ORAL route every 6 hours As needed; 20 tablet. - Medication Reconciliation Form, Thank You Letter, Antibiotic Education, Prescription Opioid Use form. - Follow up: Private Physician; When: 1 - 2 days; Reason: Recheck today's complaints. - Problem is an ongoing problem. - Symptoms have improved. Signatures: Dispatcher MedPenn State HealthJosefina Ann RN RN aj1 Dariel Carson MD MD cha Page, Corey, PA PA cp Gio Valderrama, RN RN mg2 Corrections: (The following items were deleted from the chart) 04/24 16:17 16:05 04/24/2019 16:05 Discharged to Home. Impression: Lower abdominal pain, mg2 unspecified. Condition is Stable. Forms are Medication Reconciliation Form, Thank You Letter, Antibiotic Education, Prescription Opioid Use. Follow up: Private Physician; When: 1 - 2 days; Reason: Recheck today's complaints. Problem is an ongoing problem. Symptoms have improved. cp
[2019-04-24] MEDS ORDERED: KETOROLAC 30 MG/ML INJ ONE (16:09)
--- NOTE | 2019-04-24 16:28 | RAD REPORT ---
EXAM DESCRIPTION: US - Pelvis Complete - 04/24/2019 3:49 pm CLINICAL HISTORY: right lower abdomen adnexal pain, hysterectomy history COMPARISON: No comparisons TECHNIQUE: Transabdominal pelvic sonography was performed. FINDINGS: Uterus is not identified matching the surgical history. Bladder is tightly contracted limi ting assessment. Neither ovary was identified. Ovaries are likely laterally displaced from surgery an d obscured by bowel gas. No oophorectomies history provided by the patient. No adnexal masses are see n. No free fluid in the dependent portion of the pelvis. IMPRESSION: No abnormality identified. Uterus is absent. Ovaries are not visualized and may be surgically absent or obscured by bowel.
[2019-04-24 16:54] VITALS: BP 108/65; TEMP 98; O2SAT 100
== END 2019-04-24 16:17 | disposition home or self-care (01) ==
LOC: ER 12:08
DX: R10.31 Right lower quadrant pain (principal); E78.00 Pure hypercholesterolemia, unspecified; I34.1 Nonrheumatic mitral (valve) prolapse; F31.9 Bipolar disorder, unspecified; F17.210 Nicotine dependence, cigarettes, uncomplicated; Z88.5 Allergy status to narcotic agent; Z88.8 Allergy status to other drugs, medicaments and biological substances
CPT/HCPCS: 96361; 85025; 80048; 36415; 80076; 83690; 74177; 76856; 96374; 99284; Q9967; J7030; 81003; 81015

== ENCOUNTER 2019-05-28 20:26 | Emergency (ER) | payer OTHER ==
[2019-05-28] MEDS ORDERED: ONDANSETRON 4 MG (ODT) TAB ONE (21:17)
[2019-05-28] MEDS ORDERED: MORPHINE 4 MG/ML SYR ONE (21:17)
--- NOTE | 2019-05-28 23:51 | ER ---
Nurse's Notes [facility] Name: Orly Henderson Age: 59 yrs Sex: Female : 1960 Arrival Date: 05/28/2019 Time: 20:30 Bed 27 Private MD: Joe Cummings R Diagnosis: Pain in right hip Presentation: 05/27 20:34 Chief complaint: Patient states: Right hip and right leg x 5 days. No trauma. Chronic ll1 pain to that hip for over 3 months. Coronavirus screen: The patient has NOT traveled to a country currently being monitored by the CDC within the last 14 days. Proceed with normal triage procedures. Ebola Screen: Patient denies travel to an Ebola-affected area in the 21 days before illness onset. Initial Sepsis Screen: Does the patient meet any 2 criteria? No. Patient's initial sepsis screen is negative. Does the patient have a suspected source of infection? No. Patient's initial sepsis screen is negative. Risk Assessment: Do you want to hurt yourself or someone else? Patient reports no desire to harm self or others. 20:34 Method Of Arrival: Wheelchair ll1 20:34 Acuity: ANDREINA 4 ll1 Historical: - Allergies: 20:38 Benadryl IV; ll1 20:38 Bioxan; ll1 20:38 Flagyl; ll1 20:38 Ascomp with Codeine; ll1 - Home Meds: 20:38 alendronate 70 mg Oral tab 1 tab once wkly [Active]; buspirone 15 mg Oral tab 0.5 tab 2 ll1 times per day [Active]; pantoprazole 40 mg Oral TbEC 1 tab once daily [Active]; meloxicam 7.5 mg Oral tab 1 tab once daily [Active]; sucralfate 1 gram Oral tab 1 tab 4 times per day [Active]; rosuvastatin 5 mg Oral tab 1 tab once daily [Active]; tizanidine 4 mg Oral cap 1 cap daily [Active]; venlafaxine 150 mg Oral cp24 1 cap once daily [Active]; Vitamin D3 1,000 unit Oral cap [Active]; topiramate 25 mg Oral cpSP 2 caps 2 times per day [Active]; - PMHx: 20:38 Arthritis; Fibromyalgia; Hernia; Mitral Prolapse; Ulcers; Osteoporosis; High ll1 Cholesterol; GERD; Bipolar disorder; - PSHx: 20:38 Cholecystectomy; Hysterectomy; shoulder surgery; ll1 - Immunization history:: Flu vaccine is up to date. - Social history:: Smoking status: Patient reports the use of cigarette tobacco products, smokes one-half pack cigarettes per day, Patient/guardian denies using alcohol, street drugs, Patient/guardian denies using The patient lives alone. - Family history:: not pertinent. Screenin:00 Abuse screen: Denies threats or abuse. Nutritional screening: No deficits noted. fu Tuberculosis screening: No symptoms or risk factors identified. Fall Risk None identified. Assessment: 20:54 General: Appears uncomfortable, Behavior is calm, cooperative, appropriate for age, fu Reports right hip pain and back pain. Pain: Complains of pain in right hip and back Pain does not radiate. Pain currently is 10 out of 10 on a pain scale. Quality of pain is described as sharp, Pain began a week ago Is intermittent. Neuro: Level of Consciousness is awake, alert, obeys commands, Oriented to person, place, time, situation. Cardiovascular: Denies chest pain, diaphoresis, fatigue, lightheadedness, nausea, palpitations, shortness of breath, syncope, vomiting. Respiratory: Airway is patent Respiratory effort is even, unlabored, Respiratory pattern is regular. GI: Bowel sounds present X 4 quads. : No signs and/or symptoms were reported regarding the genitourinary system. EENT: No signs and/or symptoms were reported regarding the EENT system. Derm: No signs and/or symptoms reported regarding the dermatologic system. Musculoskeletal: Reports weakness in left leg pain in left leg. 22:10 Reassessment: Patient and/or family updated on plan of care and expected duration. Pain fu level reassessed. Patient is alert, oriented x 3, equal unlabored respirations, skin warm/dry/pink. patient resting in bed, lights dimmed. 22:47 Reassessment: Patient complaining of abdominal pain, Dr. De La Vega notified. fu 23:15 Reassessment: Patient and/or family updated on plan of care and expected duration. Pain fu level reassessed. Patient is alert, oriented x 3, equal unlabored respirations, skin warm/dry/pink. Assisted to the restroom. Vital Signs: 20:34 Weight 70.31 kg; Height 5 ft. 7 in. (170.18 cm); Pain 10/10; ll1 20:38 BP 133 / 81; Pulse 89; Resp 17; Temp 97.2; Pulse Ox 96% ; ll1 20:45 BP 129 / 70; Pulse 78; Resp 18; Pulse Ox 98% on R/A; Pain 10/10; fu 21:16 BP 135 / 72; Pulse 74; Resp 18; Pulse Ox 96% on R/A; Pain 7/10; fu 21:45 BP 146 / 77; Pulse 63; Resp 18; Pulse Ox 92% ; fu 22:45 BP 150 / 79; Pulse 62; Pulse Ox 98% ; Pain 8/10; fu 23:00 BP 136 / 77; Pulse 77; Resp 18; Pulse Ox 99% on R/A; fu 20:34 Body Mass Index 24.28 (70.31 kg, 170.18 cm) ll1 ED Course: 20:30 Patient arrived in ED. es 20:31 Joe Cummings MD is Private Physician. es 20:36 Triage completed. ll1 20:38 Arm band placed on Patient placed in an exam room. ll1 20:40 Ton Robertson, FARIBA is Primary Nurse. fu 20:41 Lizett De La Vega MD is Attending Physician. ma2 21:55 Hip Right 2 View XRAY In Process Unspecified. EDMS 22:00 No provider procedures requiring assistance completed. fu 22:01 Patient has correct armband on for positive identification. Bed in low position. Call fu light in reach. Side rails up X2. 22:02 Pulse ox on. NIBP on. fu 22:[address] In Process Unspecified. EDMS Administered Medications: 21:15 Drug: Zofran (Ondansetron) 4 mg Route: PO; fu 21:55 Follow up: Response: No adverse reaction fu 21:17 Drug: morphine 4 mg Route: IM; Site: right deltoid; fu 21:57 Follow up: Response: Pain is decreased fu 05/28 00:21 Drug: Dilaudid 1 mg {Note: given intramuscularly, left deltoid.} Route: IVP; Site: fu Other; 00:22 Follow up: Response: Medication administered at discharge. fu Outcome: 05/27 23:51 Discharge ordered by MD. simms 05/28 00:23 Patient left the ED. fu Signatures: Dispatcher [employer] Eileen Clark Felix, RN RN Lizett Fountain MD MD ma2 Lewis, Lynsay, RN RN ll1
--- NOTE | 2019-05-28 23:51 | EDPHYS ---
Physician Documentation [facility] Name: Orly Henderson Age: 59 yrs Sex: Female : 1960 Arrival Date: 05/28/2019 Time: 20:30 Bed 27 Private MD: Joe Cummings R ED Physician Lizett De La Vega HPI: 05/27 23:48 This 59 yrs old Unknown Female presents to ER via Wheelchair with complaints of Flank ma2 Pain, Hip Pain, Back Pain. 23:48 The patient complains of pain in the right low back. Onset: The symptoms/episode ma2 began/occurred suddenly, 1 day(s) ago. Associated signs and symptoms: Pertinent negatives: dysuria, headache. The patient has not experienced similar symptoms in the past, The patient has experienced similar episodes in the past, a few times. Historical: - Allergies: 20:38 Benadryl IV; ll1 20:38 Bioxan; ll1 20:38 Flagyl; ll1 20:38 Ascomp with Codeine; ll1 - Home Meds: 20:38 alendronate 70 mg Oral tab 1 tab once wkly [Active]; buspirone 15 mg Oral tab 0.5 tab 2 ll1 times per day [Active]; pantoprazole 40 mg Oral TbEC 1 tab once daily [Active]; meloxicam 7.5 mg Oral tab 1 tab once daily [Active]; sucralfate 1 gram Oral tab 1 tab 4 times per day [Active]; rosuvastatin 5 mg Oral tab 1 tab once daily [Active]; tizanidine 4 mg Oral cap 1 cap daily [Active]; venlafaxine 150 mg Oral cp24 1 cap once daily [Active]; Vitamin D3 1,000 unit Oral cap [Active]; topiramate 25 mg Oral cpSP 2 caps 2 times per day [Active]; - PMHx: 20:38 Arthritis; Fibromyalgia; Hernia; Mitral Prolapse; Ulcers; Osteoporosis; High ll1 Cholesterol; GERD; Bipolar disorder; - PSHx: 20:38 Cholecystectomy; Hysterectomy; shoulder surgery; ll1 - Immunization history:: Flu vaccine is up to date. - Social history:: Smoking status: Patient reports the use of cigarette tobacco products, smokes one-half pack cigarettes per day, Patient/guardian denies using alcohol, street drugs, Patient/guardian denies using The patient lives alone. - Family history:: not pertinent. ROS: 23:48 Constitutional: Negative for fever, chills, and weight loss. ma2 23:48 All other systems are negative. Exam: 23:48 Constitutional: This is a well developed, well nourished patient who is awake, alert, ma2 and in no acute distress. Chest/axilla: Normal chest wall appearance and motion. Nontender with no deformity. No lesions are appreciated. Cardiovascular: Regular rate and rhythm with a normal S1 and S2. No gallops, murmurs, or rubs. Normal PMI, no JVD. No pulse deficits. Respiratory: Lungs have equal breath sounds bilaterally, clear to auscultation and percussion. No rales, rhonchi or wheezes noted. No increased work of breathing, no retractions or nasal flaring. Abdomen/GI: Soft, non-tender, with normal bowel sounds. No distension or tympany. No guarding or rebound. No evidence of tenderness throughout. Skin: Warm, dry with normal turgor. Normal color with no rashes, no lesions, and no evidence of cellulitis. MS/ Extremity: right hip pain, joint has limited rom d/t pain yet other part of exam looks normal, Pulses equal, no cyanosis. Neurovascular intact. Full, normal range of motion. Neuro: Awake and alert, GCS 15, oriented to person, place, time, and situation. Cranial nerves II-XII grossly intact. Motor strength 5/5 in all extremities. Sensory grossly intact. Cerebellar exam normal. Normal gait. Vital Signs: 20:34 Weight 70.31 kg; Height 5 ft. 7 in. (170.18 cm); Pain 10/10; ll1 20:38 BP 133 / 81; Pulse 89; Resp 17; Temp 97.2; Pulse Ox 96% ; ll1 20:45 BP 129 / 70; Pulse 78; Resp 18; Pulse Ox 98% on R/A; Pain 10/10; fu 21:16 BP 135 / 72; Pulse 74; Resp 18; Pulse Ox 96% on R/A; Pain 7/10; fu 21:45 BP 146 / 77; Pulse 63; Resp 18; Pulse Ox 92% ; fu 22:45 BP 150 / 79; Pulse 62; Pulse Ox 98% ; Pain 8/10; fu 23:00 BP 136 / 77; Pulse 77; Resp 18; Pulse Ox 99% on R/A; fu 20:34 Body Mass Index 24.28 (70.31 kg, 170.18 cm) ll1 MDM: 20:42 Patient medically screened. ma2 23:48 Differential diagnosis: right hip pain, arthritis vs sciatica vs back apin. Data ma2 reviewed: vital signs, nurses notes. Counseling: I had a detailed discussion with the patient and/or guardian regarding: the historical points, exam findings, and any diagnostic results supporting the discharge/admit diagnosis, the presence of at least one elevated blood pressure reading (>120/80) during this emergency department visit, the need for outpatient follow up. Response to treatment: the patient's symptoms have resolved after treatment. 23:54 ED course: prn aware checked no evidence of drug seeking . ma2 05/27 20:58 Order name: Hip Right 2 View XRAY dc2 05/27 21:56 Order name: Pelvis Wo Cont CT ma2 Administered Medications: 21:15 Drug: Zofran (Ondansetron) 4 mg Route: PO; fu 21:55 Follow up: Response: No adverse reaction fu 21:17 Drug: morphine 4 mg Route: IM; Site: right deltoid; fu 21:57 Follow up: Response: Pain is decreased fu 05/28 00:21 Drug: Dilaudid 1 mg {Note: given intramuscularly, left deltoid.} Route: IVP; Site: fu Other; 00:22 Follow up: Response: Medication administered at discharge. fu Disposition: 05/28/19 23:51 Discharged to Home. Impression: Pain in right hip. - Condition is Stable. - Discharge Instructions: Hip Pain. - Prescriptions for Cyclobenzaprine 10 mg Oral Tablet - take 1 tablet by ORAL route every 8 hours As needed; 30 tablet. Tramadol 50 mg Oral Tablet - take 1 tablet by ORAL route every 8 hours as needed; 12 tablet. Medrol (Robert) 4 mg Oral Tablets, Dose Pack - take 1 tablet by ORAL route as directed - follow package instructions; 1 packet. - Medication Reconciliation Form, Thank You Letter, Antibiotic Education, Prescription Opioid Use form. - Follow up: Private Physician; When: Tomorrow; Reason: Continuance of care. Signatures: Dispatcher [employer] [facility] Ton Robertson RN Lizett Keith MD MD ma2 Gerson Rios RN RN ll1 Corrections: (The following items were deleted from the chart) 00:23 05/27 23:51 05/28/2019 23:51 Discharged to Home. Impression: Pain in right hip. fu Condition is Stable. Forms are Medication Reconciliation Form, Thank You Letter, Antibiotic Education, Prescription Opioid Use. Follow up: Private Physician; When: Tomorrow; Reason: Continuance of care. ma2
[2019-05-29] MEDS ORDERED: HYDROMORPHONE HCL 1 MG/ML INJ ONE (00:07)
[2019-05-29 01:11] VITALS: TEMP 97.2
[2019-05-29 01:18] VITALS: BP 136/77; O2SAT 99
--- NOTE | 2019-05-30 12:09 | RAD REPORT ---
EXAM DESCRIPTION: Pelvis Wo Cont CLINICAL HISTORY: 59 years Female ?right hip fracture;Pain COMPARISON: CT abdomen and pelvis study from 04/24/2019. TECHNIQUE: Contiguous axial images obtained through the pelvis without IV contrast. Reformatted imag es obtained. This exam was performed according to our department optimization program which includes automated exp osure control, adjustment of the mA and/or kv according to patient size and/or use of iterative recon struction technique. FINDINGS: Atherosclerotic calcifications. There are changes from previous hysterectomy. No acute fractures or dislocations are identified. IMPRESSION: No acute fracture is identified. Electronically signed by: Venkat Hartley MD 05/28/2019 11:05 PM LARD BLEACHER Due to temporary technical issues with the PACS/Fluency reporting system, reports are being signed by the in house radiologist as a courtesy to ensure prompt reporting. The interpreting radiologist is f ully responsible for the content of the report.
--- NOTE | 2019-05-30 12:12 | RAD REPORT ---
EXAM DESCRIPTION: X-ray hip two or more views CLINICAL HISTORY: 59-year-old female with right hip pain TECHNIQUE: Two x-ray views of the right hip were performed on 05/28/2019 at 9:39 PM. COMPARISON: None FINDINGS: There is no evidence of fracture or dislocation. There is no significant arthritis or dege nerative change. No focal lytic or sclerotic bone lesions are seen. Bone mineralization is normal. No focal soft tissue abnormalities are identified. IMPRESSION: No evidence of acute osseous injury involving the right hip. Electronically signed by: Shyann Butler DO 05/29/2019 12:52 AM AUTOMOTIVE MECHANICAL ENGINEER Due to temporary technical issues with the PACS/Fluency reporting system, reports are being signed by the in house radiologist as a courtesy to ensure prompt reporting. The interpreting radiologist is f ully responsible for the content of the report.
== END 2019-05-29 00:23 | disposition home or self-care (01) ==
LOC: ER 20:26
DX: M25.551 Pain in right hip (principal); E78.00 Pure hypercholesterolemia, unspecified; F31.9 Bipolar disorder, unspecified; K21.9 Gastro-esophageal reflux disease without esophagitis; Z88.5 Allergy status to narcotic agent; Z88.8 Allergy status to other drugs, medicaments and biological substances; Z72.0 Tobacco use
CPT/HCPCS: 72192; 73502; 96372; 96374; 99284; J1170

== ENCOUNTER 2019-08-19 09:45 | Day surgery (SDC) | payer OTHER ==
--- NOTE | 2019-08-18 15:54 | RAD REPORT ---
EXAM DESCRIPTION: RAD - Chest Pa And Lat (2 Views) - 08/18/2019 3:23 pm CLINICAL HISTORY: preop, pending hernia repair COMPARISON: CT study June 2018 TECHNIQUE: Frontal and lateral views of the chest were obtained. FINDINGS: The lungs are clear. Heart size is normal and central vasculature is within normal limit s. No pleural effusion or pneumothorax seen. No acute bone finding. Partial compression fracture lo wer thoracic spine is not changed from the June 2018 comparison. No aortic abnormality. IMPRESSION: No acute cardiopulmonary process. Lower thoracic partial compression fracture stable back to June 2018.
[2019-08-18 16:51] LABS: Absolute Lymphocytes (CBC) 1.5 K/uL (0.7-4.9); Basophils % 1.7 % (0-1.3); Hematocrit 38.2 % (36.0-45.0); MPV 8.3 fL (7.6-11.3); RBC Red Blood Cell Count 4.13 M/uL (3.86-4.86)
[2019-08-18 16:52] LABS: Potassium 4.3 mmol/L (3.5-5.1)
[2019-08-19] MEDS ORDERED: Ringers Lactate 1,000 ML IV ONE ×2 (09:57→11:58)
[2019-08-19] MEDS ORDERED: CEFAZOLIN/SWI 1gm 1 GM/10 ML SYR ONE (09:57)
--- OUTSIDE RECORDS SUMMARY | 2019-08-19 10:44 | XMS REPORT ---
:1960 Author Organization [facility] t Address [address] [place] [address] Care Team Providers Name Role Phone Una Parikh Lab Main Attending Clinician Unavailable Doctor Unassigned, Name Attending Clinician Unavailable Evans MOBLEY Attending Clinician Payers Payer Name Policy Type Policy Number Effective Date Expiration Date S ource Problems This patient has no known problems. Allergies, Adverse Reactions, Alerts Allergy Allergy Status Severity Reaction(s) Onset Inactive Treating Comm ents Source Name Type Date Date Clinician metronid DA Active U 2019-0 [facility] azole 4-16 [facility] 00:00: e 00 [facility] diphenhy DA Active U 2019[facility]0 [facility] clarithr DA Active SV 2019-0 [facility]cin [facility] Medications This patient has no known medications. Procedures This patient has no known procedures. 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 Una Parikh [place] 1.2.840.114 [id number] 13:19:17 13:34:17 Visit Lab Main [place] 350.1.13.10 Mary D 4.2.7.2.686 [place] [id number] [address] 2019-07-29 2019-07-29 Orders Doctor CHEYANNE 1.2.840.114 [id number] 00:00:00 00:00:00 Only Unassigned, PIERO 350.1.13.10 [place] [facility] 4.2.7.2.686 [id number] 009 2019-07-21 2019-07-21 Emergency DEMETRIUS Krueger 1.2.840.114 [id number] 20:33:43 23:51:00 Slava Santana 350.1.13.10 Mary D 4.2.7.2.686 [place] [id number] 084 2018-06-29 2018-06-29 Emergency E [facility] 7500 MH 08:15:00 08:15:00 Results Test Description Test Time Test Comments Results Result [facility] e Comments - SP VERT ANGIO 2018-07-21 Name: SUNG 15:41:00 SORAYA HENDERSON [facility] : 1960 Age/S: 58 / F [address] [facility] Unit #: [id number] Loc: [place] [address] Phys: Lenin Akhtar MD Acct: [id number] Dis Date: Status: [facility] PHONE #: [phone] Exam Date: 07/14/2018 1208 FAX #: [phone] Reason: EXAMS: CPT CODE: [id number] SP VERT ANGIO UNILAT 46222 Fluoro Time: DAP (Gy m2): Air Kerma [...] in PACS. The guidewire and a 5 Jamaican Omni Flush catheter were advanced into the [...] vertebral arteries was performed using a 4 Jamaican material preparation worker catheter. Magnification angiography and rotational angiography was [...] in PAGE 1 Signed Report (CONTINUED) Name: DIOGENESSORAYA A [facility] : 1960 Age/S: 58 / F [address] [facility] Unit #: [id number] Loc: [place] [address] Phys: Lenin Akhtar MD Acct: [id number] Dis Date: Status: [facility] PHONE #: [phone] Exam Date: 07/14/2018 1204 FAX #: [phone] Reason: EXAMS: CPT CODE: [id number] VERT ANGIO UNILAT 39232 Fluoro Time: DAP (Gy m2): Air Kerma [...] sec CAK : 1000.1 mGy DAP : 885556 mGy sq cm at 1541 Reported and signed by: Lenin Akhtar M.D. CC: Kiko Hendrickson MD Technologist: Ge Gould Trnarb Date/Time: 07/21/2018 (8080) [email or web address] Orig Print D/T: S: 07/21/2018 (8045) PAGE 2 Signed Report - SP VERT ANGIO 2018-07-21 Name: UNILAT 15:41:00 SORAYA HENDERSON [facility] : 1960 Age/S: 58 / F [address] Unit #: [id number] Loc: [place] [address] Phys: Lenin Akhtar MD Acct: [id number] Dis Date: Status: [facility] PHONE #: [phone] Exam Date: 07/14/2018 1208 FAX #: [phone] Reason: EXAMS: CPT CODE: [id number] SP VERT ANGIO UNILAT 62505 Fluoro Time: DAP (Gy m2): Air Kerma [...] in PACS. The guidewire and a 5 Jamaican Omni Flush catheter were advanced into the [...] vertebral arteries was performed using a 4 Jamaican material preparation worker catheter. Magnification angiography and rotational angiography was [...] PAGE 1 Signed Report (CONTINUED) Name: SORAYA HENDERSON [facility] : 1960 Age/S: 58 / F [address] [facility] Unit #: [id number] Loc: [place] [address] Phys: Lenin Akhtar MD Acct: [id number] Dis Date: Status: [facility] PHONE #: [phone] Exam Date: 07/14/2018 1208 FAX #: [phone] Reason: EXAMS: CPT CODE: [id number] VERT ANGIO UNILAT 75125 Fluoro Time: DAP (Gy m2): Air Kerma [...] sec CAK : 1000.1 mGy DAP : 990766 mGy sq cm at 1541 Reported and signed by: Lenin Akhtar M.D. CC: Kiko Hendrickson MD Technologist: Ge Gould Trnscb Date/Time: 07/21/2018 (515) Jose Daniel Orig Print D/T: S: 07/21/2018 (4193) PAGE 2 Signed Report - SP INT CAROTID 2018-07-21 Name: ANGIO UNI 15:41:00 HENDERSONSORAYA [facility] SP : 1960 Age/S: 58 / F [address] [facility] Unit #: [id number] Loc: [place] [address] Phys: Lenin Akhtar MD Acct: [id number] Dis Date: Status: [facility] PHONE #: [phone] Exam Date: 07/14/2018 1208 FAX #: [phone] Reason: EXAMS: CPT CODE: [id number] SP INT CAROTID ANGIO UNI 82976 Fluoro Time: DAP (Gy m2): Air Kerma [...] in PACS. The guidewire and a 5 Jamaican Omni Flush catheter were advanced into the [...] vertebral arteries was performed using a 4 Jamaican material preparation worker catheter. Magnification angiography and rotational angiography was [...] PAGE 1 Signed Report (CONTINUED) Name: SORAYA HENDERSON [facility] : 1960 Age/S: 58 / F [address] [facility] Unit #: [id number] Loc: [place] [address] Phys: Lenin Akhtar MD Acct: [id number] Dis Date: Status: [facility] PHONE #: [phone] Exam Date: 07/14/2018 1202 FAX #: [phone] Reason: EXAMS: CPT CODE: [id number] SP INT CAROTID ANGIO UNI 28239 Fluoro Time: DAP (Gy m2): Air Kerma [...] sec CAK : 1000.1 mGy DAP : 576134 mGy sq cm at 1541 Reported and signed by: Lenin Akhtar M.D. CC: Kiko Hendrickson MD Technologist: Ge Gould [facility] Date/Time: 07/21/2018 (1541) [email or web address] Orig Print D/T: S: 07/21/2018 (2099) PAGE 2 Signed Report - SP INT CAROTID 2018-07-21 Name: ANGIO UNI 15:41:00 HENDERSONNANCYSORAYA Ney [facility] : 1960 Age/S: 58 / F [address] Unit #: [id number] Loc: [place] [address] Phys: Lenin Akhtar MD Acct: [id number] Dis Date: Status: [facility] PHONE #: [phone] Exam Date: 07/14/2018 1201 FAX #: [phone] Reason: EXAMS: CPT CODE: [id number] SP INT CAROTID ANGIO UNI 57284 Fluoro Time: DAP (Gy m2): Air Kerma [...] in PACS. The guidewire and a 5 Jamaican Omni Flush catheter were advanced into the [...] vertebral arteries was performed using a 4 Jamaican material preparation worker catheter. Magnification angiography and rotational angiography was [...] in PAGE 1 Signed Report (CONTINUED) Name: DIOGENESNANCYSORAYA A [facility] SP : 1960 Age/S: 58 / F [address] [facility] Unit #: [id number] Loc: [place] [address] Phys: Lenin Akhtar MD Acct: [id number] Dis Date: Status: [facility] PHONE #: [phone] Exam Date: 07/14/2018 1203 FAX #: [phone] Reason: EXAMS: CPT CODE: [id number] SP INT CAROTID ANGIO UNI 70775 Fluoro Time: DAP (Gy m2): Air Kerma [...] sec CAK : 1000.1 mGy DAP : 965987 mGy sq cm at 1541 Reported and signed by: Lenin Akhtar M.D. CC: Kiko Hendrickson MD Technologist: Ge Gould Trnarb Date/Time: 07/21/2018 (1541) [email or web address] Orig Print D/T: S: 07/21/2018 (9448) PAGE 2 Signed Report - SP EX CAROTID 2018-07-21 Name: ANGIO UNIL 15:41:00 SORAYA HENDERSON [facility] : 1960 Age/S: 58 / F [address] [facility] Unit #: [id number] Loc: [place] [address] Phys: Lenin Akhtar MD Acct: [id number] Dis Date: Status: [facility] PHONE #: [phone] Exam Date: 07/14/2018 1206 FAX #: [phone] Reason: EXAMS: CPT CODE: [id number] SP EX CAROTID ANGIO UNIL 80523 Fluoro Time: DAP (Gy m2): Air Kerma [...] in PACS. The guidewire and a 5 Jamaican Omni Flush catheter were advanced into the [...] vertebral arteries was performed using a 4 Jamaican material preparation worker catheter. Magnification angiography and rotational angiography was [...] PAGE 1 Signed Report (CONTINUED) Name: SORAYA HENDERSON [facility] SP : 1960 Age/S: 58 / F [address] [facility] Unit #: [id number] Loc: [place] [address] Phys: Lenin Akhtar MD Acct: [id number] Dis Date: Status: [facility] PHONE #: [phone] Exam Date: 07/14/2018 1209 FAX #: [phone] Reason: EXAMS: CPT CODE: [id number] SP EX CAROTID ANGIO UNIL 09412 Fluoro Time: DAP (Gy m2): Air Kerma [...] sec CAK : 1000.1 mGy DAP : 285036 mGy sq cm at 1541 Reported and signed by: Lenin Akhtar M.D. CC: Kiko Hendrickson MD Technologist: Ge Gould Trnarb Date/Time: 07/21/2018 (1541) [email or web address] Orig Print D/T: S: 07/21/2018 (8853) PAGE 2 Signed Report - SP EX CAROTID 2018-07-21 Name: ANGIO UNIL 15:41:00 SORAYA HENDERSON [facility] SP : 1960 Age/S: 58 / F [address] [facility] [id number] Loc: [place] [address] Phys: Lenin Akhtar MD Acct: [id number] Dis Date: Status: [facility] PHONE #: [phone] Exam Date: 07/14/2018 1208 FAX #: [phone] Reason: EXAMS: CPT CODE: [id number] SP EX CAROTID ANGIO UNIL 25030 Fluoro Time: DAP (Gy m2): Air Kerma [...] in PACS. The guidewire and a 5 Jamaican Omni Flush catheter were advanced into the [...] vertebral arteries was performed using a 4 Jamaican material preparation worker catheter. Magnification angiography and rotational angiography was [...] PAGE 1 Signed Report (CONTINUED) Name: [facility] 1960 Age/S: 58 / F [address] Unit #: [id number] Loc: [place] [address] Phys: Lenin Akhtar MD Acct: [id number] Dis Date: Status: [facility] PHONE #: [phone] Exam Date: 07/14/2018 1200 FAX #: [phone] Reason: EXAMS: CPT CODE: [id number] SP EX CAROTID ANGIO UNIL 06771 Fluoro Time: DAP (Gy m2): Air Kerma [...] sec CAK : 1000.1 mGy DAP : 256265 mGy sq cm at 1541 Reported and signed by: Lenin Akhtar M.D. CC: Kiko Hendrickson MD Technologist: Ge Gould [facility] Date/Time: 07/21/2018 (1541) [email or web address] Orig Print D/T: S: 07/21/2018 (7715) PAGE 2 Signed Report - NSP THOR AORT 2018-07-21 Name: W/ANGIO 15:41:00 SORAYA HENDERSON [facility] SP : 1960 Age/S: 58 / F [address] Unit #: [id number] Loc: [place] [address] Phys: Lenin Akhtar MD Acct: [id number] Dis Date: Status: [facility] PHONE #: [phone] Exam Date: 07/14/2018 1203 FAX #: [phone] Reason: EXAMS: CPT CODE: [id number] NSP THOR AORT W/ANGIO 37169 Fluoro Time: 384 DAP (Gy m2): 804449 Air Kerma (mGy): 1000. EXAM: Angiography of [...] in PACS. The guidewire and a 5 Jamaican Omni Flush catheter were advanced into the [...] vertebral arteries was performed using a 4 Jamaican material preparation worker catheter. Magnification angiography and rotational angiography was [...] PAGE 1 Signed Report (CONTINUED) Name: SORAYA HENDERSON [facility] : 1960 Age/S: 58 / F [address] Unit #: [id number] Loc: [place] [address] Phys: Lenin Akhtar MD Acct: [id number] Dis Date: Status: [facility] PHONE #: [phone] Exam Date: 07/14/2018 1208 FAX #: [phone] Reason: EXAMS: CPT CODE: [id number] NSP THOR AORT W/ANGIO 80500 Fluoro Time: 384 DAP (Gy m2): 386702 Air Kerma (mGy): 1000. <Continued> the right [...] sec CAK : 1000.1 mGy DAP : 701400 mGy sq cm at 1541 Reported and signed by: Lenin Akhtar M.D. CC: Kiko Hendrickson MD Technologist: eG Gould [facility] Date/Time: 07/21/2018 (1541) [email or web address] Orig Print D/T: S: 07/21/2018 (5114) PAGE 2 Signed Report CBC W/MANUAL DIFF 2018-07-06 15:43:00 Test Item Value Reference Range Interpretation Comme nts WHITE BLOOD CELL (test code = WBC) 5.4 K/mm3 4.5-12.5 N RED BLOOD CELL (test code = RBC) 3.91 mill/mm3 3.7-5.2 N HEMOGLOBIN (test code = HGB) 11.3 gram/dL 11.5-15.5 L HEMATOCRIT (test code = HCT) 37.6 % 36.0-46.0 N MEAN CELL VOLUME (test code = MCV) 96.2 fL 80-98 N MEAN CELL HGB (test code = MCH) 28.9 picogram 27.0-33.0 N MEAN CELL HGB CONCETRATION (test code = MCHC) 30.1 gram/dL 33.0-36. 0 L RED CELL DISTRIBUTION WIDTH (test code = RDW) 12.5 % 11.6-16. 2 N RED CELL DISTRIBUTION WIDTH SD (test code = RDW-SD) 43.9 fL 37 .0-51.0 N PLATELET COUNT (test code = PLT) 285 K/mm3 150-450 N MEAN PLATELET VOLUME (test code = MPV) 9.5 fL 6.7-11.0 N IMMATURE GRANULOCYTE % (test code = IG%) 0.2 % 0.0-5.0 N NUCLEATED RBC % (test code = NRBC%) 0.0 % 0-0 N NEUTROPHIL # (test code = NT#) 2.51 K/mm3 1.8-7.7 N IMMATURE GRANULOCYTE # (test code = IG#) 0.01 x10 3/uL 0-0.03 N LYMPHOCYTE # (test code = LY#) 2.27 K/mm3 1.0-5.0 N MONOCYTE # (test code = MO#) 0.36 K/mm3 0-0.8 N EOSINOPHIL # (test code = EO#) 0.24 K/mm3 0.0-0.5 N BASOPHIL # (test code = BA#) 0.04 K/mm3 0.0-0.2 N NUCLEATED RBC # (test code = NRBC#) 0.00 K/mm3 0.0-0.1 N MANUAL DIFF REQUIRED (test code = MDIFF) YES STAIN ACCEPTABILITY (test code = STN ACCEPTABLE) STAIN ACCEPTABLE TOTAL CELLS COUNTED (test code = TCC) 114 #CELLS SEGMENTED NEUTROPHILS (test code = SEG) 50.9 % 39-69 N BAND NEUTROPHIL (test code = BAND) 0 % 0-10 N LYMPHOCYTE (test code = LYMPH) 36.8 % 25-55 N REACTIVE LYMPH (test code = RELYMPH) 0 % MONOCYTE (test code = MON) 7.0 % 0-10 N EOSINOPHIL (test code = EOS) 4.4 % 0.0-5.0 N BASOPHIL (test code = BASO) 0.9 % 0-1.0 N METAMYELOCYTE (test code = META) 0 % 0-0 N MYELOCYTE (test code = MYELO) 0 % 0.0-0.0 N PROMYELOCYTE (test code = PROM) 0 % 0-0 N MORPHOLOGY COMMENT (test code = MOC) NORMAL PLATELET ESTIMATE (test code = PLTEST) ADEQUATE PLATELET MORPHOLOGY (test code = PLTMORPH) SIZE VARIABLE IMMATURE FORMS (test code = IMMAT) 0 % COMPREHENSIVE METABOLIC [id number] 15:05:00 Test Item Value Reference Range Interpretation Comments SODIUM (test code = 143 mmol/L 136-145 N NA) POTASSIUM (test code = 4.1 mmol/L 3.5-5.1 N K) CHLORIDE (test code = 113.0 mmol/L 98-107 H CL) CARBON DIOXIDE (test 25.0 mmol/L 21-32 N code = CO2) ANION GAP (test code = 9.1 10-20 L GAP) GLUCOSE (test code = 79 mg/dL 74-106 N GLU) BLOOD UREA NITROGEN 13 mg/dL 7-18 N (test code = BUN) GLOMERULAR FILTRATION > 60 mL/min >=60 Estima elidia GFR by RATE (test code = GFR) using Modified MDRD formula.Chronic kidney disease is defined as ei er kidney damageor GFR <60 mL/min/1.73 m2 for >3 months. CREATININE (test code 0.80 mg/dL 0.55-1.02 N Note change in = CREAT) reference range due to change in reagent. BUN/CREATININE RATIO 16.3 10-20 N (test code = BUN/CREA) TOTAL PROTEIN (test 7.4 gram/dL 6.4-8.2 N code = PROT) ALBUMIN (test code = 4.3 g/dL 3.4-5.0 N ALB) GLOBULIN (test code = 3.1 gram/dL 2.7-4.2 N GLOB) ALBUMIN/GLOBULIN RATIO 1.4 0.75-1.50 N (test code = A/G) CALCIUM (test code = 8.6 mg/dL 8.5-10.1 N CA) BILIRUBIN TOTAL (test 0.20 mg/dL 0.0-1.0 N code = BILT) SGOT/AST (test code = 11 IUnit/L 15-37 L AST) SGPT/ALT (test code = 18 IUnit/L 12-78 N ALT) ALKALINE PHOSPHATASE 66 IUnit/L 45-117 N Note change in TOTAL (test code = reference range due ALKP) to change in reagent. COMPREHENSIVE METABOLIC [id number] 14:58:00 Test Item Value Reference Range Interpretation Comments SODIUM (test code = NA) 143 mmol/L 136-145 N POTASSIUM (test code = K) 4.1 mmol/L 3.5-5.1 N CHLORIDE (test code = CL) 113.0 mmol/L 98-107 H CARBON DIOXIDE (test code = CO2) mmol/L 21-32 ANION GAP (test code = GAP) 10-20 GLUCOSE (test code = GLU) mg/dL 74-106 BLOOD UREA NITROGEN (test code = mg/dL 7-18 BUN) GLOMERULAR FILTRATION RATE (test mL/min >=60 code = GFR) CREATININE (test code = CREAT) mg/dL 0.55-1.02 BUN/CREATININE RATIO (test code 10-20 = BUN/CREA) TOTAL PROTEIN (test code = PROT) gram/dL 6.4-8.2 ALBUMIN (test code = ALB) g/dL 3.4-5.0 GLOBULIN (test code = GLOB) gram/dL 2.7-4.2 ALBUMIN/GLOBULIN RATIO (test 0.75-1.50 code = A/G) CALCIUM (test code = CA) mg/dL 8.5-10.1 BILIRUBIN TOTAL (test code = mg/dL 0.0-1.0 BILT) SGOT/AST (test code = AST) IUnit/L 15-37 SGPT/ALT (test code = ALT) IUnit/L 12-78 ALKALINE PHOSPHATASE TOTAL (test IUnit/L 45-117 code = ALKP) PROTHROMBIN [id number] 14:56:00 Test Item Value Reference Range Interpretation Comments PROTHROMBIN TIME 11.1 seconds 9.0-14.0 N PATIENT (test code = PTP) INTERNATIONAL NORMAL 0.9 0.8-1.2 N The the rapeutic range RATIO (test code = for oral INR) anticoagulant t herapy formost indicat ions is an internati onal normalized rati o (INR)of between 2.0 and 3.0. The recommended therapeutic INR range for various cli nical situations is l isted below: Clinical Situat ion INR range Pulmonary embol ism treatment (2.0-3.0)Venou s thrombosis treatmentVenous thrombosis prophylaxis (hi gh risk surgery)Prevent ion of systemic emboli sm from: A cute myocardial infa rction Valvula r heart disease Atrial fibrilla tion Mechanical pros thetic heart valves (2.5-3.5) THROMBOPLASTIN TIME [id number] 14:56:00 Test Item Value Reference Range Interpretation Comments THROMBOPLASTIN TIME PARTIAL 28.6 seconds 25.0-36.5 N (test code = PTT) CBC W/MANUAL [id number] 14:45:00 Test Item Value Reference Range Interpretation Comments WHITE BLOOD CELL (test code = 5.4 K/mm3 4.5-12.5 N WBC) RED BLOOD CELL (test code = 3.91 mill/mm3 3.7-5.2 N RBC) HEMOGLOBIN (test code = HGB) 11.3 gram/dL 11.5-15.5 L HEMATOCRIT (test code = HCT) 37.6 % 36.0-46.0 N MEAN CELL VOLUME (test code = 96.2 fL 80-98 N MCV) MEAN CELL HGB (test code = MCH) 28.9 picogram 27.0-33.0 N MEAN CELL HGB CONCETRATION 30.1 gram/dL 33.0-36.0 L (test code = MCHC) RED CELL DISTRIBUTION WIDTH 12.5 % 11.6-16.2 N (test code = RDW) RED CELL DISTRIBUTION WIDTH SD 43.9 fL 37.0-51.0 N (test code = RDW-SD) PLATELET COUNT (test code = 285 K/mm3 150-450 N PLT) MEAN PLATELET VOLUME (test code 9.5 fL 6.7-11.0 N = MPV) IMMATURE GRANULOCYTE % (test 0.2 % 0.0-5.0 N code = IG%) NUCLEATED RBC % (test code = 0.0 % 0-0 N NRBC%) NEUTROPHIL # (test code = NT#) 2.51 K/mm3 1.8-7.7 N IMMATURE GRANULOCYTE # (test 0.01 x10 3/uL 0-0.03 N code = IG#) LYMPHOCYTE # (test code = LY#) 2.27 K/mm3 1.0-5.0 N MONOCYTE # (test code = MO#) 0.36 K/mm3 0-0.8 N EOSINOPHIL # (test code = EO#) 0.24 K/mm3 0.0-0.5 N BASOPHIL # (test code = BA#) 0.04 K/mm3 0.0-0.2 N NUCLEATED RBC # (test code = 0.00 K/mm3 0.0-0.1 N NRBC#) MANUAL DIFF REQUIRED (test code YES = MDIFF) STAIN ACCEPTABILITY (test code = STN ACCEPTABLE) TOTAL CELLS COUNTED (test code #CELLS = TCC) SEGMENTED NEUTROPHILS (test % 39-69 code = SEG) LYMPHOCYTE (test code = LYMPH) % 25-55 MONOCYTE (test code = MON) % 0-10 EOSINOPHIL (test code = EOS) % 0.0-5.0 CABOT RINGS (test code = CAB) MORPHOLOGY COMMENT (test code = MOC) PLATELET ESTIMATE (test code = PLTEST) PLATELET MORPHOLOGY (test code = PLTMORPH) CBC W/MANUAL [id number] 14:45:00 Test Item Value Reference Range Interpretation Comments WHITE BLOOD CELL (test code = 5.4 K/mm3 4.5-12.5 N WBC) RED BLOOD CELL (test code = 3.91 mill/mm3 3.7-5.2 N RBC) HEMOGLOBIN (test code = HGB) 11.3 gram/dL 11.5-15.5 L HEMATOCRIT (test code = HCT) 37.6 % 36.0-46.0 N MEAN CELL VOLUME (test code = 96.2 fL 80-98 N MCV) MEAN CELL HGB (test code = MCH) 28.9 picogram 27.0-33.0 N MEAN CELL HGB CONCETRATION 30.1 gram/dL 33.0-36.0 L (test code = MCHC) RED CELL DISTRIBUTION WIDTH 12.5 % 11.6-16.2 N (test code = RDW) RED CELL DISTRIBUTION WIDTH SD 43.9 fL 37.0-51.0 N (test code = RDW-SD) PLATELET COUNT (test code = 285 K/mm3 150-450 N PLT) MEAN PLATELET VOLUME (test code 9.5 fL 6.7-11.0 N = MPV) IMMATURE GRANULOCYTE % (test 0.2 % 0.0-5.0 N code = IG%) NUCLEATED RBC % (test code = 0.0 % 0-0 N NRBC%) NEUTROPHIL # (test code = NT#) 2.51 K/mm3 1.8-7.7 N IMMATURE GRANULOCYTE # (test 0.01 x10 3/uL 0-0.03 N code = IG#) LYMPHOCYTE # (test code = LY#) 2.27 K/mm3 1.0-5.0 N MONOCYTE # (test code = MO#) 0.36 K/mm3 0-0.8 N EOSINOPHIL # (test code = EO#) 0.24 K/mm3 0.0-0.5 N BASOPHIL # (test code = BA#) 0.04 K/mm3 0.0-0.2 N NUCLEATED RBC # (test code = 0.00 K/mm3 0.0-0.1 N NRBC#) MANUAL DIFF REQUIRED (test code YES = MDIFF) STAIN ACCEPTABILITY (test code = STN ACCEPTABLE) TOTAL CELLS COUNTED (test code #CELLS = TCC) SEGMENTED NEUTROPHILS (test % 39-69 code = SEG) LYMPHOCYTE (test code = LYMPH) % 25-55 MONOCYTE (test code = MON) % 0-10 EOSINOPHIL (test code = EOS) % 0.0-5.0 MORPHOLOGY COMMENT (test code = MOC) PLATELET ESTIMATE (test code = PLTEST) PLATELET MORPHOLOGY (test code = PLTMORPH) CBC W/MANUAL [id number] 14:45:00 Test Item Value Reference Range Interpretation Comments WHITE BLOOD CELL (test code = 5.4 K/mm3 4.5-12.5 N WBC) RED BLOOD CELL (test code = 3.91 mill/mm3 3.7-5.2 N RBC) HEMOGLOBIN (test code = HGB) 11.3 gram/dL 11.5-15.5 L HEMATOCRIT (test code = HCT) 37.6 % 36.0-46.0 N MEAN CELL VOLUME (test code = 96.2 fL 80-98 N MCV) MEAN CELL HGB (test code = MCH) 28.9 picogram 27.0-33.0 N MEAN CELL HGB CONCETRATION 30.1 gram/dL 33.0-36.0 L (test code = MCHC) RED CELL DISTRIBUTION WIDTH 12.5 % 11.6-16.2 N (test code = RDW) RED CELL DISTRIBUTION WIDTH SD 43.9 fL 37.0-51.0 N (test code = RDW-SD) PLATELET COUNT (test code = 285 K/mm3 150-450 N PLT) MEAN PLATELET VOLUME (test code 9.5 fL 6.7-11.0 N = MPV) IMMATURE GRANULOCYTE % (test 0.2 % 0.0-5.0 N code = IG%) NUCLEATED RBC % (test code = 0.0 % 0-0 N NRBC%) NEUTROPHIL # (test code = NT#) 2.51 K/mm3 1.8-7.7 N IMMATURE GRANULOCYTE # (test 0.01 x10 3/uL 0-0.03 N code = IG#) LYMPHOCYTE # (test code = LY#) 2.27 K/mm3 1.0-5.0 N MONOCYTE # (test code = MO#) 0.36 K/mm3 0-0.8 N EOSINOPHIL # (test code = EO#) 0.24 K/mm3 0.0-0.5 N BASOPHIL # (test code = BA#) 0.04 K/mm3 0.0-0.2 N NUCLEATED RBC # (test code = 0.00 K/mm3 0.0-0.1 N NRBC#) MANUAL DIFF REQUIRED (test code YES = MDIFF) STAIN ACCEPTABILITY (test code = STN ACCEPTABLE) TOTAL CELLS COUNTED (test code #CELLS = TCC) SEGMENTED NEUTROPHILS (test % 39-69 code = SEG) LYMPHOCYTE (test code = LYMPH) % 25-55 MONOCYTE (test code = MON) % 0-10 MORPHOLOGY COMMENT (test code = MOC) PLATELET ESTIMATE (test code = PLTEST) PLATELET MORPHOLOGY (test code = PLTMORPH) CBC W/AUTO [id number] 14:44:00 Test Item Value Reference Range Interpretation Comments WHITE BLOOD CELL (test code = WBC) K/mm3 4.5-12.5 RED BLOOD CELL (test code = RBC) mill/mm3 3.7-5.2 HEMOGLOBIN (test code = HGB) gram/dL 11.5-15.5 HEMATOCRIT (test code = HCT) 37.6 % 36.0-46.0 N MEAN CELL VOLUME (test code = MCV) fL 80-98 MEAN CELL HGB (test code = MCH) picogram 27.0-33.0 MEAN CELL HGB CONCETRATION (test gram/dL 33.0-36.0 code = MCHC) RED CELL DISTRIBUTION WIDTH (test % 11.6-16.2 code = RDW) RED CELL DISTRIBUTION WIDTH SD fL 37.0-51.0 (test code = RDW-SD) PLATELET COUNT (test code = PLT) K/mm3 150-450 MEAN PLATELET VOLUME (test code = fL 6.7-11.0 MPV) NEUTROPHIL % (test code = NT%) % 39.0-69.0 IMMATURE GRANULOCYTE % (test code = % 0.0-5.0 IG%) LYMPHOCYTE % (test code = LY%) % 25.0-55.0 MONOCYTE % (test code = MO%) % 0.0-10.0 EOSINOPHIL % (test code = EO%) % 0.0-5.0 BASOPHIL % (test code = BA%) % 0.0-1.0 NEUTROPHIL # (test code = NT#) K/mm3 1.8-7.7 LYMPHOCYTE # (test code = LY#) K/mm3 1.0-5.0 MONOCYTE # (test code = MO#) K/mm3 0-0.8 EOSINOPHIL # (test code = EO#) K/mm3 0.0-0.5 BASOPHIL # (test code = BA#) K/mm3 0.0-0.2 CBC W/MANUAL [id number] 14:44:00 Test Item Value Reference Range Interpretation Comments WHITE BLOOD CELL (test code = 5.4 K/mm3 4.5-12.5 N WBC) RED BLOOD CELL (test code = 3.91 mill/mm3 3.7-5.2 N RBC) HEMOGLOBIN (test code = HGB) 11.3 gram/dL 11.5-15.5 L HEMATOCRIT (test code = HCT) 37.6 % 36.0-46.0 N MEAN CELL VOLUME (test code = 96.2 fL 80-98 N MCV) MEAN CELL HGB (test code = MCH) 28.9 picogram 27.0-33.0 N MEAN CELL HGB CONCETRATION 30.1 gram/dL 33.0-36.0 L (test code = MCHC) RED CELL DISTRIBUTION WIDTH 12.5 % 11.6-16.2 N (test code = RDW) RED CELL DISTRIBUTION WIDTH SD 43.9 fL 37.0-51.0 N (test code = RDW-SD) PLATELET COUNT (test code = 285 K/mm3 150-450 N PLT) MEAN PLATELET VOLUME (test code 9.5 fL 6.7-11.0 N = MPV) IMMATURE GRANULOCYTE % (test 0.2 % 0.0-5.0 N code = IG%) NUCLEATED RBC % (test code = 0.0 % 0-0 N NRBC%) NEUTROPHIL # (test code = NT#) 2.51 K/mm3 1.8-7.7 N IMMATURE GRANULOCYTE # (test 0.01 x10 3/uL 0-0.03 N code = IG#) LYMPHOCYTE # (test code = LY#) 2.27 K/mm3 1.0-5.0 N MONOCYTE # (test code = MO#) 0.36 K/mm3 0-0.8 N EOSINOPHIL # (test code = EO#) 0.24 K/mm3 0.0-0.5 N BASOPHIL # (test code = BA#) 0.04 K/mm3 0.0-0.2 N NUCLEATED RBC # (test code = 0.00 K/mm3 0.0-0.1 N NRBC#) MANUAL DIFF REQUIRED (test code YES = MDIFF) STAIN ACCEPTABILITY (test code = STN ACCEPTABLE) TOTAL CELLS COUNTED (test code #CELLS = TCC) SEGMENTED NEUTROPHILS (test % 39-69 code = SEG) LYMPHOCYTE (test code = LYMPH) % 25-55 MONOCYTE (test code = MON) % 0-10 EOSINOPHIL (test code = EOS) % 0.0-5.0 CABOT RINGS (test code = CAB) MORPHOLOGY COMMENT (test code = MOC) PLATELET ESTIMATE (test code = PLTEST) PLATELET MORPHOLOGY (test code = PLTMORPH) CBC W/MANUAL [id number] 14:44:00 Test Item Value Reference Range Interpretation Comments WHITE BLOOD CELL (test code = 5.4 K/mm3 4.5-12.5 N WBC) RED BLOOD CELL (test code = 3.91 mill/mm3 3.7-5.2 N RBC) HEMOGLOBIN (test code = HGB) 11.3 gram/dL 11.5-15.5 L HEMATOCRIT (test code = HCT) 37.6 % 36.0-46.0 N MEAN CELL VOLUME (test code = 96.2 fL 80-98 N MCV) MEAN CELL HGB (test code = MCH) 28.9 picogram 27.0-33.0 N MEAN CELL HGB CONCETRATION 30.1 gram/dL 33.0-36.0 L (test code = MCHC) RED CELL DISTRIBUTION WIDTH 12.5 % 11.6-16.2 N (test code = RDW) RED CELL DISTRIBUTION WIDTH SD 43.9 fL 37.0-51.0 N (test code = RDW-SD) PLATELET COUNT (test code = 285 K/mm3 150-450 N PLT) MEAN PLATELET VOLUME (test code 9.5 fL 6.7-11.0 N = MPV) IMMATURE GRANULOCYTE % (test 0.2 % 0.0-5.0 N code = IG%) NUCLEATED RBC % (test code = 0.0 % 0-0 N NRBC%) NEUTROPHIL # (test code = NT#) 2.51 K/mm3 1.8-7.7 N IMMATURE GRANULOCYTE # (test 0.01 x10 3/uL 0-0.03 N code = IG#) LYMPHOCYTE # (test code = LY#) 2.27 K/mm3 1.0-5.0 N MONOCYTE # (test code = MO#) 0.36 K/mm3 0-0.8 N EOSINOPHIL # (test code = EO#) 0.24 K/mm3 0.0-0.5 N BASOPHIL # (test code = BA#) 0.04 K/mm3 0.0-0.2 N NUCLEATED RBC # (test code = 0.00 K/mm3 0.0-0.1 N NRBC#) MANUAL DIFF REQUIRED (test code YES = MDIFF) STAIN ACCEPTABILITY (test code = STN ACCEPTABLE) TOTAL CELLS COUNTED (test code #CELLS = TCC) SEGMENTED NEUTROPHILS (test % 39-69 code = SEG) LYMPHOCYTE (test code = LYMPH) % 25-55 MONOCYTE (test code = MON) % 0-10 EOSINOPHIL (test code = EOS) % 0.0-5.0 CABOT RINGS (test code = CAB) MORPHOLOGY COMMENT (test code = MOC) PLATELET ESTIMATE (test code = PLTEST) PLATELET MORPHOLOGY (test code = PLTMORPH)
[2019-08-19] MEDS ORDERED: MIDAZOLAM HCL 2 MG/2 ML INJ ONE (11:07)
[2019-08-19] MEDS ORDERED: ROCURONIUM 50 MG/5 ML VIAL IV ONE (11:07)
[2019-08-19] MEDS ORDERED: propofoL 200 MG/20 ML VIAL IV ONE (11:07)
[2019-08-19] MEDS ORDERED: LIDOCAINE 2% MPF 5 ML VIAL ONE (11:07)
[2019-08-19] MEDS ORDERED: FENTANYL CITR 100 MCG/2 ML ONE (11:07)
[2019-08-19] MEDS ORDERED: KETOROLAC 30 MG/ML INJ ONE (11:43)
[2019-08-19] MEDS ORDERED: dexAMETHasone 4 MG/ML VIAL ONE ×2 (11:43→11:44)
[2019-08-19] MEDS ORDERED: ONDANSETRON 4 MG/2 ML VIAL ONE (11:43)
[2019-08-19] MEDS ORDERED: NEOSTIGMINE 1 MG/ML -5 ML ONE (12:27)
[2019-08-19] MEDS ORDERED: GLYCOPYRROLATE 0.2 MG/ML SYR ONE (12:27)
[2019-08-19] MEDS: HYDROMORPHONE HCL 1 MG/ML INJ ONE ×4 (12:52→13:14)
[2019-08-19] MEDS ORDERED: PROMETHAZINE INJ 25 MG/ML AMP ONE (12:56)
[2019-08-19] MEDS ORDERED: HYDROCODONE/APAP 7.5/325 MG TAB ONE (14:15)
[2019-08-19 14:52] VITALS: BP 128/68; TEMP 97.8; O2SAT 963
--- NOTE | 2019-08-19 22:04 | OP ---
Date of Procedure: 08/19/2019 Surgeon: Sen Hensley MD Division Human Resources Manager: GREY Simmons. Preoperative Diagnosis: Incarcerated ventral hernia. Postoperative Diagnosis: Incarcerated ventral hernia. Procedure: Laparoscopic repair of incarcerated ventral hernia. Estimated Blood Loss: Minimal. Specimen: None. Findings: As above. Anesthesia: General. Complications: None. Patient tolerated the procedure in stable condition, taken to the Recovery in good general condition. Procedure In Detail: Patient was brought to the OR and placed in supine position. General anesthesi a begun. Patient was prepped and draped in usual sterile fashion. Then Marcaine 0.5% was infiltrate d locally. A 15-blade was used to make a 1 cm left upper quadrant incision, subcutaneous tissue divi ded. Fascia was identified and divided. #1 Vicryl stay suture was placed. Peritoneal cavity was en tered with sharp and blunt dissection. 12 mm trocar was placed into the peritoneal cavity under dire ct vision. Pneumoperitoneum was established. Two 5 mm trocars were placed, 1 in the left lower quad rant, 1 in the left middle quadrant. Laparoscopy revealed incarcerated small bowel in the lower midl ine to below the umbilicus. This was densely adhered to the peritoneal surface as well. Sharp disse ction was utilized for most of the dissection. Cautery was used the occasionally control bleeding, w hich was minimal and then the bowel was carefully dissected free from the peritoneal surface and from the hernia with separation of the muscles in the lower abdomen and all the small bowel was reduced i nto the peritoneal cavity. No evidence of any bowel injury was noted and no bleeding was noted. The defect was measured and a 6-inch Bard mesh was utilized to the balloon system, circular in nature, w as placed and then secured with AbsorbaTack all the way around with complete coverage with at least 3 cm borders at each side and then complete coverage of the hernia defect accomplished. No evidence o f bleeding or bowel injury appreciated. Then all trocars were removed under direct vision. Stay sut ures were tied to each other to reapproximate the fascial defect. Subcutaneous wounds were irrigated . Bleeding controlled with cautery. 3-0 chromic used to approximate the subcutaneous tissue and leatha se the skin. Sterile dressing was applied. Patient was awakened and taken to Recovery in good gener al condition. Discharge Note: Patient will go to Day Surgery and home when stable. Disposition: Home. Condition: Stable. Discharge Instructions: Resume home medications and diet. Activity as tolerated. No heavy lifting. Remove outer dressing in 2 days. Shower. Keep wound clean and dry. Keep Steri-Strips on at all t imes. Abdominal binder as ordered. Incentive spirometry as ordered. Tylenol No.3 one tablet p.o. q .4 p.r.n. pain. Follow up in my office in 1 week. Call for appointment. LALA/BLANCA Voice ID: [id number] Report ID: [id number]
--- NOTE | 2019-08-20 13:02 | EKG ---
Test Date: 2019-08-18 Test Time: 14:05:49 Machine Dyer: MALKA MEASUREMENT RESULTS: Intervals: Rate: 65 W[place]: 180 QRSD: 86 QT: 414 QTc: 430 [place]: P: 45 [place]: 180 QRS: 52 T: 65 INTERPRETIVE STATEMENTS: Normal sinus rhythm Nonspecific T wave abnormality Abnormal ECG Compared to ECG 06/21/2018 22:32:07 No significant changes Electronically Signed On 08-20-19 13:01:15 CDT by Jose De Jesus Varner
== END 2019-08-19 15:05 | disposition home or self-care (01) ==
LOC: OR 09:45
PROVIDERS: ATTEND Surgery
PROC: 0WUF4JZ Supplement Abdominal Wall with Synthetic Substitute, Percutaneous Endoscopic Approach (ICD-10-PCS; principal; 2019-08-19 11:15)
DX: K43.6 Other and unspecified ventral hernia with obstruction, without gangrene (principal); K21.9 Gastro-esophageal reflux disease without esophagitis; F40.240 Claustrophobia; G25.81 Restless legs syndrome; F32.9 Major depressive disorder, single episode, unspecified; F17.200 Nicotine dependence, unspecified, uncomplicated; Z88.3 Allergy status to other anti-infective agents; Z88.8 Allergy status to other drugs, medicaments and biological substances
CPT/HCPCS: 93005; 85025; 80048; 36415; 71046; 49653; J2704; J2550; J2250; J3010; J1170 ×2; J2710; J0690; J7120 ×2; J2405